=== PATIENT | female | born 1960 | race Asian ===

== ENCOUNTER 2021-02-01 14:24 | Outpatient (RCR) | payer BC, SELFPAY ==
[2021-02-01] MEDS: COVID-19 VACC, MRNA(PFIZER)/PF 30 MCG/0.3 ML SYRINGE IM (10:38)
[2021-02-22] MEDS: COVID-19 VACC, MRNA(PFIZER)/PF 30 MCG/0.3 ML SYRINGE IM (10:23)
== END 2021-02-07 23:59 ==
LOC: IMMUN 14:24
PROVIDERS: Referring Provider Family Medicine; Visit Provider Family Medicine
DX: Z23 Encounter for immunization (principal)
CPT/HCPCS: 0001A; 0002A; 91300

== ENCOUNTER → 2024-10-25 | Outpatient (CLI) | payer BC, SELFPAY ==
[2024-10-25 18:03] LABS: Hepatitis B Surface Antibody Non-Reactive; Hepatitis C Antibody Non-Reactive (Nonreactive)
[2024-10-27 06:08] LABS: Hepatitis A AB, Total Positive (Negative); Hepatitis Be Ab Reactive (Negative); Hepatitis Be Ag Negative (Negative)
== END | disposition home or self-care (01) ==
PROVIDERS: Referring Provider Nurse Practitioner Acute Care; Visit Provider Nurse Practitioner Acute Care
DX: B19.10 Unspecified viral hepatitis B without hepatic coma (principal)
CPT/HCPCS: 36415; 86706; 86707; 86708; 86803; 87350

== ENCOUNTER → 2024-11-18 | Outpatient (CLI) | payer BC, SELFPAY ==
--- NOTE | 2024-11-18 09:12 | US_ITS ---
INDICATION: HBV EXAMINATION: Ultrasound US Abdomen Limited (quadrant) TECHNIQUE: Madrigal scale and color doppler imaging was performed of the right upper quadrant. COMPARISON: FINDINGS: LIVER: There is normal echotexture measuring 15.5 cm. No focal hepatic lesion. There is no free fluid. GALLBLADDER AND BILIARY TREE: No shadowing gallstone, pericholecystic fluid or gallbladder wall thickening is demonstrated. The proximal common bile duct measures 5 mm, which is within normal limits for the patient''s age. Songraphic Mcclain''s sign: Negative. PANCREAS: No focal abnormality is demonstrated in the pancreas. No pancreatic ductal dilatation. RIGHT KIDNEY: 9.4 x 4.2 x 4.0 cm. The cortex is 11 mm. No hydronephrosis. No shadowing calculi. US/Abdomen Limited IMPRESSION: No acute sonographic abnormality is demonstrated in the right upper quadrant. Electronically Signed: Paddy Ramos DO at 21:22 EST ,
== END | disposition home or self-care (01) ==
LOC: US 09:11
PROVIDERS: Referring Provider Nurse Practitioner Acute Care; Visit Provider Nurse Practitioner Acute Care
DX: B19.10 Unspecified viral hepatitis B without hepatic coma (principal)
CPT/HCPCS: 76705

== ENCOUNTER 2025-01-23 07:03 | Day surgery (SDC) | payer BC, SELFPAY ==
[2025-01-23] VITALS (7 sets, daily range): BP systolic 73–123; BP diastolic 45–67; PULSE 59–73; RESP 16–18; TEMP 36.2–37.4; O2SAT 93–98; BMI 27.9
--- NOTE | 2025-01-23 07:08 | PCM.PRE.AN2 ---
ASA Classification* ASA Classification ASA Classification: 2 Assessment & Plan Anesthesia* Anesthesia Assessment Anesthesia Assessment: Discussed sedation and/or anesthesia options, risks, benefits, and alternatives with patient/parents/legal guardian/POA. Questions invited. The patient/parents/legal guardian/POA seems to understand and agrees to proceed with anesthesia plan. Reviewed the physical assessment, medical history, allergy history and patient home medications list prior to surgery/procedure/anesthetic and documented any changes. Performed airway and anesthesia risk assessments. Anesthesia Type Anesthesia Type: MAC Anesthesia Focused Assessment* Airway Assessment Mouth opens: >3 cm Mallampati Score: II Focused Labs Anesthesia Preop lab: CBC WBC 7.5 k/mm3 (4.4-11.0) 07/30/13 08:09 07/30/13 RBC 4.41 M/mm3 (4.2-5.4) 07/30/13 08:09 07/30/13 Hgb 10.9 g/dl (12.0-15.0) L 07/30/13 08:09 07/30/13 Hct 34.1 % (37-47) L 07/30/13 08:09 07/30/13 Plt Count 300 K/mm3 (150-450) 07/30/13 08:09 07/30/13 CHEMISTRY Potassium 4.0 mmol/L (3.5-5.1) 07/30/13 08:09 07/30/13 Sodium 143 mmol/L (136-145) 07/30/13 08:09 07/30/13 BUN 14 mg/dL (7-18) 07/30/13 08:09 07/30/13 Creatinine 1.0 mg/dL (0.6-1.0) 07/30/13 08:09 07/30/13 Glucose 91 mg/dL (70-110) 07/30/13 08:09 07/30/13 COAG Pre-Assessment Diagnosis/Proposed Procedure Planned Operative Procedure(s): cscope Anesthesia History 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 When Was Last Pacemaker Check QUESTION #4 FULL TEXT: You/Your Family Experience fever (hyperthermia) with Anesthesia Last Oral Intake Last Oral intake: Last Oral Intake NPO since Meds taken in AM with sips of water? Meds patient instructed to take am of surgery PONV PONV - deputy building guard: PONV - deputy building guard Female Yes 01/19/25 14:11 HX of Motion Sickness No 01/19/25 14:11 HX of N/V After Surgery No 01/19/25 14:11 Non-Smoker Yes 01/19/25 14:11 Duration of Surgery greater No 01/19/25 14:11 than 60 minutes Number of Risk Factors 2 01/19/25 14:11 PONV Score Moderate Risk 01/19/25 14:11 Height & Weight Height & Weight: Anesthesia: Height & Weight Height 5 ft 1 in 10/25/24 15:13 Respiratory Assessment Respiratory Assessment - deputy building guard: Respiratory Tract Infection Hx - deputy building guard Hx Respiratory Tract Infection No 01/19/25 14:11 STOP Sleep Apnea STOP Sleep Apnea - deputy building guard: STOP Sleep Apnea - deputy building guard Hx Hypertension Yes: controlled with med 01/19/25 14:11 Hx Sleep Apnea No: in the past, no longer 01/19/25 14:[address] CPAP BIPAP Do you snore loudly (louder No 01/19/25 14:11 than talking or can be heard Do you often feel tired/ No 01/19/25 14:11 fatigued/ sleepy during daytime? Has anyone observed you stop No 01/19/25 14:11 breathing during sleep? STOP Results Negative 01/19/25 14:11 QUESTION #5 FULL TEXT : Do you snore loudly (louder than talking or can be heard through closed doors)? 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 Specify any problems Hx of Preganancy in last 3 N/A 01/19/25 14:11 Months Nurse Filling Out Transfusion NBUCHER 01/19/25 14:11 & Questions: Date: 01/19/25 01/19/25 14:11 Time: 14:12 01/19/25 14:11 Patient unable to answer at this time (ie. confused, unrespo /Reproduction History /Reproductive History - deputy building guard: /Reproductive Hx- deputy building guard Hx Now No 01/19/25 14:11 Gestational Age (in weeks): EDC: Hx Hx Para Hx Section SAB No 01/19/25 14:11 [facility] Medical History Low iron High cholesterol Non-smoker History of edema History of stress test History of EMG Type B viral hepatitis Median neuropathy Hypokalemia Hypertension HLD (hyperlipidemia) Degenerative disc disease, cervical Home Medications ?Medication ?Instructions ?Recorded ?Last Taken ?Type amlodipine 10 mg tablet 10 mg PO QDAY 10/17/24 Unknown History losartan 50 mg tablet 50 mg PO QDAY 10/17/24 Unknown History cetirizine 10 mg tablet (Zyrtec) 10 mg PO QDAY PRN allergy symptoms 10/25/24 Unknown History multivitamin 1 tab PO QDAY 10/25/24 Unknown History bisacodyl 5 mg tablet,delayed 5 mg PO ONCE Colonoscopy #4 tabs 01/20/25 Unknown Rx release (Dulcolax (bisacodyl)) polyethylene glycol 3350 17 238 g PO ONCE #238 grams 01/20/25 Unknown Rx gram/dose oral powder Allergy/AdvReac Type Severity Reaction Status Date / Time No Known Allergies Allergy Verified 01/19/25 14:10 Family History Brother Hepatitis Mother Hypertension Father Hypertension Surgical History History of colonoscopy History of Social History Smoking Status: Never smoker alcohol intake: never substance use type: does not use caffeine: Yes Type: coffee Review of Systems (Anesthesia) ROS Narrative System reviewed and no additional complaints, except as documented.
--- NOTE | 2025-01-23 07:40 | PCM.HP.STD ---
HPI - General General Date of Admission: 01/23/25 Date of Service: 01/23/25 Chief Complaint: Colon cancer screening HPI Narrative TIANNA CASH, is a 64 F who presents for screening colonoscopy. LABS HBVsAg positive 09/16/2024 HBV Core, IgM Ab non-reactive 09/16/2024 09/16/2024 PLT 296, HGB 11.5, albumin 3.5, AST and ALT WNL - reports she was treated for HBV 20 years ago at [facility] - Colonoscopy was about 12 years ago - denies any abdominal pain - denies any jaundice - denies any abdominal pain - denies any N/V - denies any weight loss - denies any HB - Brother with HBV - denies any heart or lung disease - denies any kidney disease Coding FOR[facility] Medical History Low iron High cholesterol Non-smoker History of edema History of stress test History of EMG Type B viral hepatitis Median neuropathy Hypokalemia Hypertension HLD (hyperlipidemia) Degenerative disc disease, cervical Home Medications ?Medication ?Instructions ?Recorded ?Last Taken ?Type amlodipine 10 mg tablet 10 mg PO QDAY 10/17/24 01/23/25 History losartan 50 mg tablet 50 mg PO QDAY 10/17/24 Unknown History cetirizine 10 mg tablet (Zyrtec) 10 mg PO QDAY PRN allergy symptoms 10/25/24 Unknown History multivitamin 1 tab PO QDAY 10/25/24 Unknown History bisacodyl 5 mg tablet,delayed 5 mg PO ONCE Colonoscopy #4 tabs 01/20/25 Unknown Rx release (Dulcolax (bisacodyl)) polyethylene glycol 3350 17 238 g PO ONCE #238 grams 01/20/25 Unknown Rx gram/dose oral powder Allergy/AdvReac Type Severity Reaction Status Date / Time No Known Allergies Allergy Verified 01/23/25 07:17 Family History Brother Hepatitis Mother Hypertension Father Hypertension Surgical History History of colonoscopy History of Social History Smoking Status: Never smoker alcohol intake: never substance use type: does not use caffeine: Yes Type: coffee ROS Constitutional Constitutional: Denies fatigue, fever(s), poor appetite, weight gain or weight loss Gastrointestinal Gastrointestinal: Denies belching, bloating, change in bowel habits, change in stool character, chewing difficulty, coffee ground emesis, constipation, cramping, diarrhea, dyspepsia, dysphagia, early satiety, excessive flatus, fecal incontinence, heartburn, hematemesis, hematochezia, hemorrhoids, loose stools, melena, nausea, odynophagia, rectal bleeding, tenesmus, vomiting or weight changes Vital Signs Vital Signs Vital Signs: 01/23/25 07:18 Temperature 97.2 F L Temperature Source Temporal Pulse Rate 73 Respiratory Rate 16 Blood Pressure 123/67 H Blood Pressure Mean 85 Blood Pressure Source Monitor Blood Pressure Position Semi-Fowlers Blood Pressure Location Left Arm Pulse Ox 93 Oxygen Delivery Method Room Air Weight Weight: 148 lb Body Mass Index (BMI) 27.9 Physical Exam Const alert, oriented x3, no apparent distress and healthy appearing General Appearance: cooperative GI normal to inspection, nondistended, normoactive bowel sounds, soft to palpation, non-tender and non-distended Percussion: normal to percussion Rectal Exam: deferred Assessment & Plan Assessment/Plan (1) Screening for colon cancer: (2) Type B viral hepatitis: QUALIFIERS: Viral hepatitis chronicity: chronic Hepatic coma status: without hepatic coma PLAN: Assessment and Plan Assessment and Plan (1) Type B viral hepatitis: Status: Acute Qualifiers: Viral hepatitis chronicity: chronic Hepatic coma status: without hepatic coma (2) Screening for colon cancer: Status: Acute Orders: Orders Abdomen Limited Today B19.10 - Unspecified viral hepatitis B without hepatic coma Hepatitis B Surface Antibody Today B19.10 - Unspecified viral hepatitis B without hepatic coma Hepatitis Be Ab Today B19.10 - Unspecified viral hepatitis B without hepatic coma Hepatitis Be Ag Today B19.10 - Unspecified viral hepatitis B without hepatic coma Hepatitis A AB, Total Today B19.10 - Unspecified viral hepatitis B without hepatic coma Hepatitis C Antibody Today B19.10 - Unspecified viral hepatitis B without hepatic coma Miscellaneous Lab Procedure Today B19.10 - Unspecified viral hepatitis B without hepatic coma Plan 64y/o female presents for consultation with [facility] of HBV. Recent labs revealed HBVsAg positive, negative HBV Core, IgM with a low positive sAb (16). She reports a remote history of HBV treatment at [facility]. I have ordered additional labs to further assess presence of HBV infection. She will also complete an ABD US at this time as well as age related screening colonoscopy. Plan Details Follow Up: 3 Months
--- NOTE | 2025-01-23 08:48 | PCM.POST.ANE ---
Anesthesia: Postop Eval I Current Vital Signs Temperature: 98.1 F Pulse Rate: 64 Blood Pressure: 87/57 Respiratory Rate: 18 Pulse Ox: 95 Assessment Airway patent: Yes Spontaneous unlabored respirations: Yes nausea: No Vomiting: No Anesthesia Complication: No Fluid Hydration Crystalloid volume administer (ml): 0 Total IV fluid infused: 0 Progress Note Anesthesia document: Postop Eval 1 completed: Yes
--- NOTE | 2025-01-23 08:50 | OP.COLON_ITS ---
Patient Name: Jessika Pappas Procedure Date: 01/23/2025 8:30 AM Date of : 1960 Age: 64 Procedure: Colonoscopy Indications: Screening for colorectal malignant neoplasm Providers: Cachorro Courtney DO Referring MD: Cachorro Courtney DO Medicines: Monitored Anesthesia Care Patient Profile: This is a 64 year old female. Refer to note in patient chart for documentation of history and physical. Last Colonoscopy: more than 10 years ago. Complications: No immediate complications. Procedure: Pre-Anesthesia Assessment: - Prior to the procedure, a History and Physical was performed, and patient medications and allergies were reviewed. The patient is competent. The risks and benefits of the procedure and the sedation options and risks were discussed with the patient. All questions were answered and informed consent was obtained. Patient identification and proposed procedure were verified by the physician in the pre-procedure area. Mental Status Examination: alert and oriented. Airway Examination: normal oropharyngeal airway and neck mobility. Respiratory Examination: clear to auscultation. CV Examination: normal. Prophylactic Antibiotics: The patient does not require prophylactic antibiotics. Prior Anticoagulants: The patient has taken no anticoagulant or antiplatelet agents. ASA Grade Assessment: II - A patient with mild systemic disease. After reviewing the risks and benefits, the patient was deemed in satisfactory condition to undergo the procedure. The anesthesia plan was to use monitored anesthesia care (MAC). Immediately prior to administration of medications, the patient was re-assessed for adequacy to receive sedatives. The heart rate, respiratory rate, oxygen saturations, blood pressure, adequacy of pulmonary ventilation, and response to care were monitored throughout the procedure. The physical status of the patient was re-assessed after the procedure. After I obtained informed consent, the scope was passed under direct vision. Throughout the procedure, the patient's blood pressure, pulse, and oxygen saturations were monitored continuously. The Colonoscope was introduced through the anus and advanced to the cecum, identified by appendiceal orifice and ileocecal valve. The colonoscopy was performed without difficulty. The patient tolerated the procedure well. The quality of the bowel preparation was fair. The ileocecal valve was photographed. Scope In: 8:34:08 AM Scope Withdrawal Time 0 hours 6 minutes 21 seconds Scope Out: 8:43:28 AM Total Procedure Duration Time 0 hours 9 minutes 20 seconds Findings: The perianal and digital rectal examinations were normal. Stool was found in the rectum, in the recto-sigmoid colon, in the sigmoid colon, in the descending colon, in the ascending colon and in the cecum. The exam was otherwise without abnormality on direct and retroflexion views. Non-bleeding internal hemorrhoids were found during retroflexion. The hemorrhoids were Grade I (internal hemorrhoids that do not prolapse). Impression: - Preparation of the colon was fair. - Stool in the rectum, in the recto-sigmoid colon, in the sigmoid colon, in the descending colon, in the ascending colon and in the cecum. - The examination was otherwise normal on direct and retroflexion views. - No specimens collected. Recommendation: - Discharge patient to home. - Resume previous diet. - Continue present medications. - Repeat colonoscopy in 6 months because the bowel preparation was suboptimal. Procedure Code(s): --- Professional --- G0121, Colorectal cancer screening; colonoscopy on individual not meeting criteria for high risk CPT copyright 2021 [employer]. All rights reserved. The codes documented in this report are preliminary and upon jukebox coin collector review may be revised to meet current compliance requirements. Cachorro Courtney DO 01/23/2025 8:49:55 AM This report has been signed electronically. Number of Addenda: 0 Note Initiated On: 01/23/2025 8:30 AM
--- NOTE | 2025-01-23 08:50 | OP.CCLET_ITS ---
01/23/2025 Yin Perez Re : Colonoscopy procedure for Jessika Pappas Dear Chris This procedure was performed on Thursday, January 23, 2025. My impressions and recommendations are as follows: Impressions : - Preparation of the colon was fair. - Stool in the rectum, in the recto-sigmoid colon, in the sigmoid colon, in the descending colon, in the ascending colon and in the cecum. - The examination was otherwise normal on direct and retroflexion views. - No specimens collected. Recommendations : - Discharge patient to home. - Resume previous diet. - Continue present medications. - Repeat colonoscopy in 6 months because the bowel preparation was suboptimal. My findings are described in the full procedure note, which is enclosed. If I can be of further assistance, please feel free to contact me at . Sincerely, Cachorro Courtney, 01/23/2025 8:49:55 AM This report has been signed electronically.
--- NOTE | 2025-01-23 09:07 | POSTOPAN2_ITS ---
Anesthesia Postop Eval I Sum Postop Eval Completion status Anesthesia document: Postop Eval 1 completed: Yes Anesthesia Postop Eval I Summary Anesthesia Postop Eval I Summary: Anesthesia Postop Eval I: Assessment Summary Airway patent Yes 01/23/25 08:48 COMMISSIONING SPECIALIST.CSIR Spontaneous unlabored Yes 01/23/25 08:48 COMMISSIONING SPECIALIST.CSIR respirations Mental status nausea No 01/23/25 08:48 COMMISSIONING SPECIALIST.CSIR Vomiting No 01/23/25 08:48 COMMISSIONING SPECIALIST.CSIR Anesthesia Postop Eval I: Fluid Summary Crystalloid volume administer 0 01/23/25 08:48 COMMISSIONING SPECIALIST.CSIR (ml) Colloids volume administered ( ml) Blood Product volume administered (ml) Total IV fluid infused 0 01/23/25 08:48 COMMISSIONING SPECIALIST.CSIR Anesthesia Postop Eval I: Summary Notes Anesthesia Complication No 01/23/25 08:48 COMMISSIONING SPECIALIST.CSIR Anesthesia Complication Comment: Post-operative progress note Anesthesia: Postop Eval II Evaluation Mental status: Awake Pain Level: 0 nausea: No Vomiting: No
--- NOTE | 2025-01-23 09:07 | PCM.POSTANE2 ---
Anesthesia Postop Eval I Sum Postop Eval Completion status Anesthesia document: Postop Eval 1 completed: Yes Anesthesia Postop Eval I Summary Anesthesia Postop Eval I Summary: Anesthesia Postop Eval I: Assessment Summary Airway patent Yes 01/23/25 08:48 PROJECT MANAGEMENT SPECIALIST.CSIR Spontaneous unlabored Yes 01/23/25 08:48 PROJECT MANAGEMENT SPECIALIST.CSIR respirations Mental status nausea No 01/23/25 08:48 PROJECT MANAGEMENT SPECIALIST.CSIR Vomiting No 01/23/25 08:48 PROJECT MANAGEMENT SPECIALIST.CSIR Anesthesia Postop Eval I: Fluid Summary Crystalloid volume administer 0 01/23/25 08:48 PROJECT MANAGEMENT SPECIALIST.CSIR (ml) Colloids volume administered ( ml) Blood Product volume administered (ml) Total IV fluid infused 0 01/23/25 08:48 PROJECT MANAGEMENT SPECIALIST.CSIR Anesthesia Postop Eval I: Summary Notes Anesthesia Complication No 01/23/25 08:48 PROJECT MANAGEMENT SPECIALIST.CSIR Anesthesia Complication Comment: Post-operative progress note Anesthesia: Postop Eval II Evaluation Mental status: Awake Pain Level: 0 nausea: No Vomiting: No
== END 2025-01-23 09:37 | disposition home or self-care (01) ==
LOC: EN 07:04 → AC 07:05
PROVIDERS: Visit Provider Internal Medicine Gastroenterology
PROC: 0DJD8ZZ Inspection of Lower Intestinal Tract, Via Natural or Artificial Opening Endoscopic (ICD-10-PCS; CPT 45378; principal; 2025-01-23 08:10)
DX: Z12.11 Encounter for screening for malignant neoplasm of colon (principal); K64.0 First degree hemorrhoids; I10 Essential (primary) hypertension; E78.00 Pure hypercholesterolemia, unspecified; Z79.899 Other long term (current) drug therapy
CPT/HCPCS: 45378; A4216; J2405

== ENCOUNTER 2025-06-14 06:26 | Day surgery (SDC) | payer BC, SELFPAY ==
[2025-06-14] VITALS (8 sets, daily range): BP systolic 74–134; BP diastolic 49–69; PULSE 50–59; RESP 16; TEMP 36.3–36.6; O2SAT 97–100; BMI 26.6
--- OUTSIDE RECORDS SUMMARY | 2025-06-14 06:29 | XMS RPT_ITS | CCD ---
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 ####[place] [id number] Platelet 273 10 3/mcL Normal 150-450 [facility] Comment on above: Performed By: #### A DANAE, GFR, LIPID, TSH, ADIFF, CBC, A1C, CMP ####[place] [id number] Platelet mean volume (Bld) [Entitic vol] 9.3 fL Normal 6.6-10.5 [facility] Comment on above: Performed By: #### A DANAE, GFR, LIPID, TSH, ADIFF, CBC, A1C, CMP ####[place] [id number] RBC 4.66 10 6/mcL Normal 4.10-5.30 [facility] Comment on above: Performed By: #### A DANAE, GFR, LIPID, TSH, ADIFF, CBC, A1C, CMP ####[place] [address] [place] [id number] WBC 8.6 10 3/mcL Normal 4.5-10.8 [facility] Comment on above: Performed By: #### A DANAE, GFR, LIPID, TSH, ADIFF, CBC, A1C, CMP ####[place] [address] [id number] CMPon 03-17-2025 Albumin Level 3.6 G/dL Normal 3.4-4.8 [facility] Comment on above: Performed By: #### A DANAE, GFR, LIPID, TSH, ADIFF, CBC, A1C, CMP ####[place] [address] Albumin/Globulin [Mass ratio] 0.7 {ratio} Low 1.1-2.5 [facility] Comment on above: Performed By: #### A DANAE, GFR, LIPID, TSH, ADIFF, CBC, A1C, CMP ####[place] [address] ALP [Catalytic activity/Vol] 97 U/L Normal 40-135 [facility] Comment on above: Performed By: #### A DANAE, GFR, LIPID, TSH, ADIFF, CBC, A1C, CMP ####[place] [address] ALT [Catalytic activity/Vol] 25 U/L Normal 14-59 [facility] Comment on above: Performed By: #### A DANAE, GFR, LIPID, TSH, ADIFF, CBC, A1C, CMP ####[place] [address] AST [Catalytic activity/Vol] 13 U/L Normal 10-40 [facility] Comment on above: Performed By: #### A DANAE, GFR, LIPID, TSH, ADIFF, CBC, A1C, CMP ####[place] [address] Bili Total 0.7 mg/dL Normal 0.2-1.0 [facility] Comment on above: Result Comment: Use of this assay is not recommended for patients undergoing treatment with eltrombopag due to the potential for falsely elevated results. Performed By: #### A DANAE, GFR, LIPID, TSH, ADIFF, CBC, A1C, CMP ####[place] [address] BUN/Creatinine Ratio 21 ratio Normal 7-27 [facility] Comment on above: Performed By: #### A DANAE, GFR, LIPID, TSH, ADIFF, CBC, A1C, CMP ####[address] [address] Calcium [Mass/Vol] 9.5 mg/dL Normal 8.4-10.2 [facility] Comment on above: Performed By: #### A DANAE, GFR, LIPID, TSH, ADIFF, CBC, A1C, CMP ####[place] [address] Chloride [Moles/Vol] 107 mmol/L Normal 98-107 [facility] Comment on above: Performed By: #### A DANAE, GFR, LIPID, TSH, ADIFF, CBC, A1C, CMP ####[place] [address] CO2 [Moles/Vol] 30 mmol/L Normal 23-31 [facility] Comment on above: Performed By: #### A DANAE, GFR, LIPID, TSH, ADIFF, CBC, A1C, CMP ####[place] [address] Creatinine [Mass/Vol] 0.71 mg/dL Normal 0.51-0.95 [facility] Comment on above: Performed By: #### A DANAE, GFR, LIPID, TSH, ADIFF, CBC, A1C, CMP ####[place] [address] Electrolyte Balance 6.0 mEq/L Normal 4.0-15.0 [facility] Comment on above: Performed By: #### A DANAE, GFR, LIPID, TSH, ADIFF, CBC, A1C, CMP ####[place] [address] Globulin 5.0 G/dL High 2.7-4.4 [facility] Comment on above: Performed By: #### A DANAE, GFR, LIPID, TSH, ADIFF, CBC, A1C, CMP ####[place] [address] Glucose [Mass/Vol] 113 mg/dL Normal 80-115 [facility] Comment on above: Performed By: #### A DANAE, GFR, LIPID, TSH, ADIFF, CBC, A1C, CMP ####[address] [place], [place] [address] Potassium [Moles/Vol] 3.8 mmol/L Normal 3.5-5.1 [facility] Comment on above: Performed By: #### A DANAE, GFR, LIPID, TSH, ADIFF, CBC, A1C, CMP ####[place] [place], [place] [address] Sodium [Moles/Vol] 143 mmol/L Normal 136-145 [facility] Comment on above: Performed By: #### A DANAE, GFR, LIPID, TSH, ADIFF, CBC, A1C, CMP ####[address] [place], [place] [address] Total Protein 8.6 G/dL High 6.4-8.2 [facility] Comment on above: Performed By: #### A DANAE, GFR, LIPID, TSH, ADIFF, CBC, A1C, CMP ####[place] [place], [place] [address] Urea nitrogen [Mass/Vol] 15 mg/dL Normal 7-18 [facility] Comment on above: Performed By: #### A DANAE, GFR, LIPID, TSH, ADIFF, CBC, A1C, CMP ####[place] [id number] [place], [place] [address] LABORATORYOrdered By: SYSTEM SYSTEM on 03-17-2025 Albumin BCP dye [Mass/Vol] 3.6 G/dL Normal 3.4 - 4.8 G/dL AO ADM SS Albumin/Globulin [Mass ratio] 0.7 {ratio} Low 1.1 - 2.5 ratio AO ADM SS ALP [Catalytic activity/Vol] 97 U/L Normal 40 - 135 U/L AO ADM SS ALT With P-5'-P [Catalytic activity/Vol] 25 U/L Normal 14 - 59 U/L AO ADM SS AST With P-5'-P [Catalytic activity/Vol] 13 U/L Normal 10 - 40 U/L AO ADM SS Basophils (Bld) [#/Vol] 0.1 103/mcL Normal 0.0 - 0.3 10^3/mcL AO Workflow SS Basophils/100 WBC (Bld) 0.9 % Normal 0.0 - 2.5 % AO Workflow SS Bilirubin [Mass/Vol] 0.7 mg/dL Normal 0.2 - 1 .0 mg/dL AO ADM SS Comment on above: Interpretive Data: U se of this assay is not recommended for patients undergoing treatment with eltrombopag due to the potential for falsely elevated results. Calcium [Mass/Vol] 9.5 mg/dL Normal 8.4 - 10. 2 mg/dL AO ADM SS Chloride [Moles/Vol] 107 mmol/L Normal 98 - 10 7 mmol/L AO ADM SS CO2 [Moles/Vol] 30 mmol/L Normal 23 - 31 mmol/L AO AD M SS Creatinine [Mass/Vol] 0.71 mg/dL Normal 0.51 - 0.95 mg/dL AO ADM SS Electrolyte Balance 6.0 mEq/L Normal 4.0 - 15 .0 mEq/L AO ADM SS Eosinophil, Absolute 0.3 103/mcL Normal 0.0 - 0 .7 10^3/mcL AO Workflow SS Eosinophils/100 WBC (Bld) 3.3 % Normal 0.0 - 6.0 % AO Workflow SS Erythrocyte distribution width (RBC) [Ratio] 14.1 % Normal 11.5 - 15.5 % AO Workflow SS Estimated Glomerular Filtration Rate 94 ml/min/1.73sqm Invalid Interpretation Code AO Chemistry S Comment on above: Interpretive Data: Stages of Chronic Kidney Disease (CKD) Stage Description eGFR(ml/min/1.73 sq.m.) CKD 1 Normal kidney function or >=90 normal kindney function with possible kidney damage (ex. Proteinuria) CKD 2 Kidney damage with mild loss 60-89 of kidney function CKD 3a Mild to moderate loss of kidney 45-59 function CKD 3b Moderate to severe loss of 30-44 of kindey function CKD 4 Severe loss of kidney function 15-29 CKD 5 Kidney failure <15 Note: (go live 2024) the eGFR calculation was updated to the 2020 CKD-EPI creatinine equation without a race factor to calculate the eGFR results. Globulin 5.0 G/dL High 2.7 - 4.4 G/dL AO ADM SS Glucose [Mass/Vol] 113 mg/dL Normal 80 - 115 mg/dL AO ADM SS Glucose [Mass/Vol] 123 mg/dL Invalid Interpretation Code AO Chemistry S Comment on above: Interpretive Data: E stimated average glucose (eAG) is a calculated value from Hemoglobin A1C and is medical service representative of the average blood glucose level in the last 2-3 month period. Normal range: less than 114 mg/dL HbA1c (Bld) [Mass fraction] 5.9 % Normal 4.3 - 6.4 % AO ADM SS Hematocrit (Bld) [Volume fraction] 35.5 % Normal 34.0 - 46.0 % AO Workflow SS Hemoglobin (Bld) [Mass/Vol] 11.7 G/dL Low 12.0 - 16.0 G/dL AO Workflow SS Lymphocytes (Bld) [#/Vol] 2.9 103/mcL Normal 0.9 - 4.3 10^3/mcL AO Workflow SS Lymphocytes/100 WBC (Bld) 34.2 % Normal 20.0 - 40.0 % AO Workflow SS MCH (RBC) [Entitic mass] 25.2 pg Low 27.0 - 33.0 pg AO Workflow SS MCHC 33.1 G/dL Normal 32.0 - 36.0 G/dL AO Workflow SS MCV (RBC) [Entitic vol] 76.2 fL Low 80.0 - 99.0 fL AO Workflow SS Monocytes (Bld) [#/Vol] 1.0 103/mcL Normal 0.1 - 1.4 10^3/mcL AO Workflow SS Monocytes/100 WBC (Bld) 11.2 % Normal 2.0 - 13.0 % AO Workflow SS Neutrophils (Bld) [#/Vol] 4.3 103/mcL Normal 2.3 - 8.1 10^3/mcL AO Workflow SS Neutrophils/100 WBC (Bld) 50.4 % Normal 50.0 - 75.0 % AO Workflow SS Platelet mean volume (Bld) [Entitic vol] 9.3 fL Normal 6.6 - 10.5 fL AO Workflow SS Platelets (Bld) [#/Vol] 273 103/mcL Normal 150 - 450 10^3/mcL AO Workflow SS Potassium [Moles/Vol] 3.8 mmol/L Normal 3.5 - 5.1 mmol/L AO ADM SS Protein [Mass/Vol] 8.6 G/dL High 6.4 - 8.2 G/dL AO ADM SS RBC (Bld) [#/Vol] 4.66 106/mcL Normal 4.10 - 5.3 0 10^6/mcL AO Workflow SS Sodium [Moles/Vol] 143 mmol/L Normal 136 - 145 mmol/L AO ADM SS TSH Qn 0.68 m[IU]/L Normal 0.36 - 3.74 mcIU/mL AO ADM SS Urea nitrogen [Mass/Vol] 15 mg/dL Normal 7 - 18 mg/dL AO ADM SS Urea nitrogen/Creatinine [Mass ratio] 21 ratio Normal 7 - 27 ratio AO ADM SS WBC (Bld) [#/Vol] 8.6 103/mcL Normal 4.5 - 10.8 10^3/mcL AO Workflow SS LABORATORYOrdered By: Jag Sawyer on 03-17-2025 Cholesterol [Mass/Vol] 212 mg/dL High 0 - 200 mg/dL AO ADM SS Comment on above: Interpretive Data: C holesterol Reference Interval: Less than 200 Desirable 200-239 Borderline high risk 240 and above High risk Cholesterol in HDL [Mass/Vol] 48 mg/dL Normal 40 - 60 mg/dL AO ADM SS Cholesterol in LDL [Mass/Vol] 128 mg/dL Normal 0 - 130 mg/dL AO ADM SS Triglyceride [Mass/Vol] 180 mg/dL High 0 - 150 mg/dL AO ADM SS Comment on above: Interpretive Data: T riglyceride Reference Interval: Less than 150 Normal 150-199 Borderline high risk 200-499 High risk 500 or higher Very high risk LIPIDon 03-17-2025 Cholesterol [Mass/Vol] 212 mg/dL High 0-200 [facility] Comment on above: Result Comment: Chol esterol Reference Interval: Less than 200 Desirable 200-239 Borderline high risk 240 and above High risk Performed By: #### H PV #### [address] [address] Cholesterol in HDL [Mass/Vol] 48 mg/dL Normal 40-60 [facility] Comment on above: Performed By: #### H PV #### [address] [address] Cholesterol in LDL [Mass/Vol] 128 mg/dL Normal 0-130 [facility] Comment on above: Performed By: #### H PV #### [address] [address] Triglyceride [Mass/Vol] 180 mg/dL High 0-150 [facility] Comment on above: Result Comment: Trig lyceride Reference Interval: Less than 150 Normal 150-199 Borderline high risk 200-499 High risk 500 or higher Very high risk Performed By: #### H PV #### [facility] [address] [place], [place] [address] TSHon 03-17-2025 TSH Qn 0.68 m[IU]/L Normal 0.36-3.74 [facility] Comment on above: Performed By: #### A DANAE, GFR, LIPID, TSH, ADIFF, CBC, A1C, CMP ####[facility] [place] [facility] [place], [place] [address] Gastroenterology Visit Repor ton 01-26-2025 Gastroenterology Visit Report [facility]enter[facility] [address] [place] [address] OFFICE VISIT Date of Service: 01/26/25 MR#: [id number] Acct: [id number] Name: JESSIKA PAPPAS Rep #: [id number] : 1960 Provider: CHAD pimentel Age/Sex: 64/F Location: [facility] Status: Signed Intake Vital Signs 10/25/24 15:13 01/23/25 07:18 01/26/25 15:35 Height 5 ft 1 in 5 ft 1 in 5 ft 1 in Weight: 148 lb 6 oz BMI 28.0 BP 138/72 H Respiration 16 Pulse 75 Pulse Oximetry (%) 98 Oxygen Delivery Method room air Intake Visit Reasons: 3 M FU Chief Complaint: a little hepatitis B Flight Line Mechanic Required: No Is patient in pain?: No Allergies No Known Allergies Allergy (Verified 01/26/25 15:36) Medications ???Medication ???Instructions ???Recorded ???Confirmed ???Type amlodipine 10 mg tablet 10 mg PO QDAY 10/17/24 01/26/25 Hi story losartan 50 mg tablet 50 mg PO QDAY 10/17/24 01/26/25 Hi story cetirizine 10 mg tablet (Zyrtec) 10 mg PO QDAY PRN allergy symptoms 10/25/24 01/26/25 History multivitamin 1 tab PO QDAY 10/25/24 01/26/25 Hi story ondansetron 4 mg disintegrating 4 mg PO .COMPLEX #8 tabs 01/26/25 01/26/25 Rx tablet sodium sul 1.479 gram-potas ch See Rx Instructions PO PER PKG DIR 01/26/25 01/26/25 Rx 0.188 gram-magnes sul 0.225 gram #24 tabs tablet (Sutab) Have you fallen in the past year?: No PFSH Medical History Low iron High cholesterol Non-smoker History of edema History of stress test History of EMG Type B viral hepatitis Median neuropathy Hypokalemia Hypertension HLD (hyperlipidemia) Degenerative disc disease, cervical Surgical History History of colonoscopy History of Family History Brother Hepatitis Mother Hypertension Father Hypertension Social History Smoking Status: Never smoker alcohol intake: never substance use type: does not use caffeine: Yes Type: coffee HPI HPI Chief Complaint: a little hepatitis B Details: JESSIKA PAPPAS, is a 64 F who presents to the office today for OV 10/25/2024 64y/o female presents for consultation with PMH of HBV. Recent labs revealed HBVsAg positive, negative HBV Core, IgM with a low positive sAb (16). She reports a remote history of HBV treatment at [facility]. I have ordered additional labs to further assess presence of HBV infection. She will also complete an ABD US at this time as well as age related screening colonoscopy. Plan Details Follow Up: 3 Months - Preparation of the colon was fair. - - Repeat colonoscopy in 6 months because the bowel preparation was suboptimal. - Stool in the rectum, in the recto-sigmoid colon, in the sigmoid colon, in the descending colon, in the ascending colon and in the cecum. - The examination was otherwise normal on direct and retroflexion views. - No specimens collected. HBVsAg positive HBVsAb negative HBVeAb positive HBVeAg negative HBV Core IgM negative HBV PCR Quant 470 HCVAb negative HAV Total positive These labs reveal she was previously infected with Hepatitis B and she has not seroconverted (HBVsAb negative), meaning she has not developed antibodies to Hepatitis B. However, her HBV DNA viral load remains very low and per AASLD guidelines any patient with HBeAg-negative CHB with normal ALT and low viral load should have routine labs yearly and ABD US to monitor. Labs also reveal immunity to hepatitis A. Avoidance of all alcohol is recommended. - occasional use of Advil - she has a BM daily - denies any pain or discomfort - denies any bleeding - denies any N/V - reports she was able to drink all of the prep and did not vomit ROS Const Constitutional: No fatigue, fever(s) or weight change ENT ENT: No difficulty swallowing Gastro GI: No abdominal pain, belching, bloating, change in bowel habits, change in stool character, coffee ground emesis, constipation, cramping, diarrhea, heartburn, difficulty swallowing, feeling full early, excessive flatus, incontinent of stools, Vomiting blood/hematemesis, Blood in stool, loose stools, Black,tarry stools, nausea/dyspepsia, pain with swallowing, vomiting or other Musc Musculoskeletal: No joint pain Skin Skin: No yellowing of the eye or itchy eyes Psych Psychiatric: No anxiety and No depression Endo Endocrine: No fatigue or weight change Aller/Imm Allergy/Immunologic: No itchy eyes Bradley/Lymp Hematologic/Lymphatic: No easy bleeding or easy bruising Exam Const General: cooperative, healthy appearing, no acute distress and well developed (more content not included)... Normal [facility] Colonoscopy Reporton 025 Colonoscopy Report [facility] Medical Records Department [address] [place] [address] Colonoscopy Report MR#: [id number] Acct: [id number] Name: JESSIKA PAPPAS Rep #: [id number] : 1960 64 From: Cachorro Friend DO PCP: Dr. Erica Hernandez, DO Status:REG [facility] Patient Name: Jessika Pappas Procedure Date: 01/23/2025 8:30 AM Date of : 1960 Age: 64 Procedure: Colonoscopy Indications: Screening for colorectal malignant neoplasm Providers: Cachorro Courtney DO Referring MD: Cachorro Courtney DO Medicines: Monitored Anesthesia Care Patient Profile: This is a 64 year old female. Refer to note in patient chart for documentation of history and physical. Last Colonoscopy: more than 10 years ago. Complications: No immediate complications. Procedure: Pre-Anesthesia Assessment: - Prior to the procedure, a History and Physical was performed, and patient medications and allergies were reviewed. The patient is competent. The risks and benefits of the procedure and the sedation options and risks were discussed with the patient. All questions were answered and informed consent was obtained. Patient identification and proposed procedure were verified by the physician in the pre-procedure area. Mental Status Examination: alert and oriented. Airway Examination: normal oropharyngeal airway and neck mobility. Respiratory Examination: clear to auscultation. CV Examination: normal. Prophylactic Antibiotics: The patient does not require prophylactic antibiotics. Prior Anticoagulants: The patient has taken no anticoagulant or antiplatelet agents. ASA Grade Assessment: II - A patient with mild systemic disease. After reviewing the risks and benefits, the patient was deemed in satisfactory condition to undergo the procedure. The anesthesia plan was to use monitored anesthesia care (MAC). Immediately prior to administration of medications, the patient was re-assessed for adequacy to receive sedatives. The heart rate, respiratory rate, oxygen saturations, blood pressure, adequacy of pulmonary ventilation, and response to care were monitored throughout the procedure. The physical status of the patient was re-assessed after the procedure. After I obtained informed consent, the scope was passed under direct vision. Throughout the procedure, the patient's blood pressure, pulse, and oxygen saturations were monitored continuously. The Colonoscope was introduced through the anus and advanced to the cecum, identified by appendiceal orifice and ileocecal valve. The colonoscopy was performed without difficulty. The patient tolerated the procedure well. The quality of the bowel preparation was fair. The ileocecal valve was photographed. Scope In: 8:34:08 AM Scope Withdrawal Time 0 hours 6 minutes 21 seconds Scope Out: 8:43:28 AM Total Procedure Duration Time 0 hours 9 minutes 20 seconds Findings: The perianal and digital rectal examinations were normal. Stool was found in the rectum, in the recto-sigmoid colon, in the sigmoid colon, in the descending colon, in the ascending colon and in the cecum. The exam was otherwise without abnormality on direct and retroflexion views. Non-bleeding internal hemorrhoids were found during retroflexion. The hemorrhoids were Grade I (internal hemorrhoids that do not prolapse). Impression: - Preparation of the colon was fair. - Stool in the rectum, in the recto-sigmoid colon, in the sigmoid colon, in the descending colon, in the ascending colon and in the cecum. - The examination was otherwise normal on direct and retroflexion views. - No specimens collected. Recommendation: - Discharge patient to home. - Resume previous diet. - Continue present medications. - Repeat colonoscopy in 6 months because the bowel preparation was suboptimal. Procedure Code(s): --- Professional --- G0121, Colorectal cancer screening; colonoscopy on individual not meeting criteria for high risk CPT copyright 2021 [employer]. All rights reserved. The codes documented in this report are preliminary and upon pre coder review may be revised to meet current compliance requirements. Cachorro Courtney DO 01/23/2025 8:49:55 AM This report has been signed electronically. Number of Addenda: 0 Note Initiated On: 01/23/2025 8:30 AM 01/23/2550 Date Cachorro Courtney DO Cosigner Signature: Date (if indicated) CC: Dr. Erica Hernandez DO; Cachorro Courtney DO Date Dictated: 01/23/25829 Date Transcribed: Safety And Security Officer: ALE Signed [facility] MR/POSTOP.Brandi 01-23-2025 MR/POSTOP.[facility] Medical Records Department [address] [place] [address] Anesthesia Postop Eval I 01/23/2548 MR#: [id number] Acct: [id number] Name: SHAILESHTIFFANYJANAK Rep #: [id number] : 1960 64 From: Georgia Armenta PCP: Dr. Erica Hernandez, DO Status:REG SDC Y Race: A Location: [place] [address] Anesthesia: Postop Eval I Current Vital Signs Temperature: 98.1 F Pulse Rate: 64 Blood Pressure: 87/57 Respiratory Rate: 18 Pulse Ox: 95 Assessment Airway patent: Yes Spontaneous unlabored respirations: Yes nausea: No Vomiting: No Anesthesia Complication: No Fluid Hydration Crystalloid volume administer (ml): 0 Total IV fluid infused: 0 Progress Note Anesthesia document: Postop Eval 1 completed: Yes 01/23/25848 Date Georgia Phliippe Signature: Date CC: Signed Normal [facility] MR/[id number] 01-23-2025 [facility] Medical Records Department [address] [place] [address] Anesthesia Postop Eval II 01/23/25906 MR#: [id number] Acct: [id number] Name: JESSIKA PAPPAS Rep #: [id number] : 1960 64 From: Bharath Woods MD PCP: Dr. Erica Hernandez, DO Status:REG SDC Y Race: A Location: [place] [address] Anesthesia Postop Eval I Sum Postop Eval Completion status Anesthesia document: Postop Eval 1 completed: Yes Anesthesia Postop Eval I Summary Anesthesia Postop Eval I Summary: Anesthesia Postop Eval I: Assessment Summary Airway patent Yes 01/23/25 08:48 SOCIOLOGY TEACHER.CSIR Spontaneous unlabored Yes 01/23/25 08:48 SOCIOLOGY TEACHER.CSIR respirations Mental status nausea No 01/23/25 08:48 SOCIOLOGY TEACHER.CSIR Vomiting No 01/23/25 08:48 SOCIOLOGY TEACHER.CSIR Anesthesia Postop Eval I: Fluid Summary Crystalloid volume administer 0 01/23/25 08:48 SOCIOLOGY TEACHER.CSIR (ml) Colloids volume administered ( ml) Blood Product volume administered (ml) Total IV fluid infused 0 01/23/25 08:48 SOCIOLOGY TEACHER.CSIR Anesthesia Postop Eval I: Summary Notes Anesthesia Complication No 01/23/25 08:48 SOCIOLOGY TEACHER.CSIR Anesthesia Complication Comment: Post-operative progress note Anesthesia: Postop Eval II Evaluation Mental status: Awake Pain Level: 0 nausea: No Vomiting: No 01/23/25 0907 Date Bharath Philippe Signature: Date CC: Signed Normal [facility] Abdomen Limitedon 11-18-2024 Abdomen Limited [facility] Imaging Services [address] [place] [address] Abdomen Limited MR#: [id number] Acct: [id number] Name: JESSIKA PAPPAS Rep #: [id number] : 1960 F 64 From: Paddy Ramos DO PCP: Dr. Erica Hernandez DO Status: REG CLI Study: Abdomen Limited Date of Exam: 11/18/24 Exam# [id number] Ordering Dr: Erin Lernre FEED BLENDER- Susannah [id number] INDICATION: HBV EXAMINATION: Ultrasound US Abdomen Limited (quadrant) TECHNIQUE: Madrigal scale and color doppler imaging was performed of the right upper quadrant. COMPARISON: FINDINGS: LIVER: There is normal echotexture measuring 15.5 cm. No focal hepatic lesion. There is no free fluid. GALLBLADDER AND BILIARY TREE: No shadowing gallstone, pericholecystic fluid or gallbladder wall thickening is demonstrated. The proximal common bile duct measures 5 mm, which is within normal limits for the patient''s age. Songraphic Mcclain''s sign: Negative. PANCREAS: No focal abnormality is demonstrated in the pancreas. No pancreatic ductal dilatation. RIGHT KIDNEY: 9.4 x 4.2 x 4.0 cm. The cortex is 11 mm. No hydronephrosis. No shadowing calculi. US/Abdomen Limited IMPRESSION: No acute sonographic abnormality is demonstrated in the right upper quadrant. Electronically Signed: Paddy Ramos DO at 21:22 EST Reading Location ID and State: [facility] / [place] Tel [phone], Service support , CC: CHAD Lerner; Dr. Erica Hernandez DO Safety And Security Officer: [facility]igned [facility] LAB TEST Normal [facility] Comment on above: Order Comment: SER/F Z [id number] Hepatitis B Virus (HBV), Quantitative, DNA Real-time PCR Result Comment: TEST RESULTS LIMITS HBV Real-Time PCR, Quant HBV IU/mL 470 IU/mL log10 HBV IU/mL 2.672 log10 IU/mL Test Information: The reportable range for this assay is 10 IU/mL to 1 billion IU/mL. [facility] ORIGINAL REPORT ON FILE IN LAB CONTAINS ADDITIONAL TEST SITE INFORMATION. Performed By: #### L 3890.6200, L3100.0300, L3890.6300, L3100.0420, L801.1541, L3100.0480 #### [facility] Laboratory [address] [place], [place], [id number] Hepatitis A AB, Totalon 10-16 HEPATITIS A,TOT Positive Abnormal Negative [facility] Comment on above: Order Comment: Reaso n for Exam: HBV Result Comment: Comm ent: The HAV total antibody assay detects both IgG and IgM but does not differentiate between them. A negative result suggests susceptibility to infection. A positive result could be due to vaccination, previously resolved infection or active infection. Testing for HAV IgM should be performed if active HAV infection is suspected. [employer] offers profiles that will automatically reflex positive HAV total antibody results to IgM (e.g., panel #[id number] HAV Antibody w/ Rfx). Performed at: [facility] [address] [id number] Director Dermatology: Isaac Malagon PhD, Phone: [phone] Performed By: #### L 3890.6200, L3100.0300, L3890.6300, L3100.0420, L801.1541, L3100.0480 #### [facility] [place] Laboratory [address] [place], [place], [id number] Hepatitis Be Abon 10-27-2024 HEP Be Ab Reactive Abnormal Negative [facility] Comment on above: Order Comment: Reaso n for Exam: HBV Performed By: #### L 3890.6200, L3100.0300, L3890.6300, L3100.0420, L801.1541, L3100.0480 #### [facility] Laboratory [address] [place], [place], [id number] Hepatitis Be Agon 10-27-2024 HEP Be AG Negative Normal Negative [facility] Comment on above: Order Comment: Reaso n for Exam: HBV Performed By: #### L 3890.6200, L3100.0300, L3890.6300, L3100.0420, L801.1541, L3100.0480 #### [facility] Laboratory [address] [place], [place], [id number] HBV surface IgG Ql (S)Ordere d By: Erin Lerner on 10-25-2024 Hepatitis B Surface Antibody Non-Reactive [facility] Comment on above: Non Reactive: Incons istent with immunity less than <10 mIU/mL Reactive: Consistent with immunity greater than or equal to 10 mIU/mL Hepatitis A virus total anti body assayOrdered By: Erin Lerner on 10-25-2024 Hepatitis A Antibody Total Positive High Negative [facility] Comment on above: Comment: The HAV tot al antibody assay detects both IgG andIgM but does not differentiate between them. A negativeresult suggests susceptibility to infection. A positiveresult could be due to vaccination, previously resolvedinfection or active infection. Testing for HAV IgM shouldbe performed if active HAV infection is suspected. [facility] profiles that will automatically reflex positive HAVtotal antibody results to IgM (e.g., panel #[id number] HAVAntibody w/ Rfx).Performed at: [place] [id number] Director: Isaac Malagon PhD, Phone: [phone] Hepatitis B Surface Antibody on 10-25-2024 HEP B Surf Ab Non-Reactive Normal [facility] Comment on above: Order Comment: Reaso n for Exam: HBV Result Comment: Non Reactive: Inconsistent with immunity less than <10 mIU/mL Reactive: Consistent with immunity greater than or equal to 10 mIU/mL Performed By: #### L 3890.6200, L3100.0300, L3890.6300, L3100.0420, L801.1541, L3100.0480 #### [facility] Laboratory [facility] [place], [address] Hepatitis Be agOrdered By: Andrea Lerner on 10-25-2024 Hepatitis Be Antigen Negative Negative [facility] Hepatitis C Antibodyon 10-25 Hepatitis C AB Non-Reactive Normal Nonreactive [facility] Comment on above: Order Comment: Reaso n for Exam: HBV Result Comment: Non Reactive: < 0.8 Equivocal: >/= 0.8 to < 1.0 Reactive: >/= 1.0 The CDC requires that a reactive/equivocal HCV antibody result be sent out for confirmation. HCV Quant by PCR testing. Performed By: #### L 3890.6200, L3100.0300, L3890.6300, L3100.0420, L801.1541, L3100.0480 #### [facility] Laboratory [address] [place], [address] Hepatitis C virus antibody a ssayOrdered By: Erin Lerner on 10-25-2024 Hepatitis C Antibody Non-Reactive Nonreactive [facility] Comment on above: Non Reactive: < 0.8 Equivocal: >/= 0.8 to < 1.0 Reactive: >/= 1.0The CDC requires that a reactive/equivocal HCV antibody result be sent out for confirmation. HCV Quant by PCR testing. Hepatitis be abOrdered By: Andrea Lerner on 10-25-2024 Hepatitis Be Antibody Reactive High Negative [facility] Miscellaneous procedureOrder ed By: Erin Lerner on 10-25-2024 Miscellaneous Test See comment [facility] Comment on above: TEST RESULTS LIMITSH BV Real-Time PCR, Quant HBV IU/mL 470 IU/mL log10 HBV IU/mL 2.672 log10 IU/mL Test Information: The reportable range for this assay is 10 IU/mL to 1 billion IU/mL. TESTING PERFORMED AT [facility]. ORIGINAL REPORT ON FILE IN LAB CONTAINS ADDITIONAL TEST SITE INFORMATION. ____ Gastroenterology Visit Repor ton 10-19-2024 Gastroenterology Visit Report [facility] [address] [place] [address] OFFICE VISIT Date of Service: 10/25/24 MR#: [id number] Acct: [id number] Name: JESSIKA PAPPAS #: [id number] : 1960 Provider: CHAD pimentel Age/Sex: 64/F Location: [facility] Status: Signed Intake Vital Signs 10/25/24 15:13 Height 5 ft 1 in Weight: 149 lb 6 oz BMI 28.2 BP 143/82 H Respiration 18 Pulse 78 Pulse Oximetry (%) 96 Oxygen Delivery Method room air Intake Visit Reasons: POSSIBLE HEP B SEROLOGY Chief Complaint: a little hepatitis B Flight Line Mechanic Required: No Is patient in pain?: No Allergies No Known Allergies Allergy (Unverified 10/25/24 15:10) Medications ???Medication ???Instructions ???Recorded ???Confirmed ???Type amlodipine 10 mg tablet 10 mg PO QDAY 10/17/24 10/17/24 History losartan 50 mg tablet 50 mg PO QDAY 10/17/24 10/17/24 History cetirizine 10 mg tablet (Zyrtec) 10 mg PO QDAY PRN 10/25/24 10/25/24 History multivitamin 1 tab PO QDAY 10/25/24 10/25/24 History Have you fallen in the past year?: No Nurse's Note: Follow up on Hepatitis. [facility] Medical History (Updated 10/25/24 @ 16:02 by CHAD Reyes) History of EMG Type B viral hepatitis Median neuropathy Hypokalemia Hypertension HLD (hyperlipidemia) Degenerative disc disease, cervical Family History (Updated 10/17/24 @ 19:06 by Sheila Marquez) Brother Hepatitis Mother Hypertension Father Hypertension Social History (Updated 10/17/24 @ 19:07 by Sheila Marquez) Smoking Status: Never smoker alcohol intake: never substance use type: does not use caffeine: Yes Type: coffee HPI HPI Chief Complaint: a little hepatitis B Details: JESSIKA PAPPAS, is a 64 F who presents to the office today for LABS HBVsAg positive 09/16/2024 HBV Core, IgM Ab non-reactive 09/16/2024 09/16/2024 PLT 296, HGB 11.5, albumin 3.5, AST and ALT WNL - reports she was treated for HBV 20 years ago at [facility] - Colonoscopy was about 12 years ago - denies any abdominal pain - denies any jaundice - denies any abdominal pain - denies any N/V - denies any weight loss - denies any HB - Brother with HBV - denies any heart or lung disease - denies any kidney disease ROS Const Constitutional: Positive for fatigue and headache(s); No fever(s) or weight change ENT ENT: Positive for headache(s); No difficulty swallowing Gastro GI: No abdominal pain, belching, bloating, change in bowel habits, change in stool character, coffee ground emesis, constipation, cramping, diarrhea, heartburn, difficulty swallowing, feeling full early, excessive flatus, incontinent of stools, Vomiting blood/hematemesis, Blood in stool, loose stools, Black,tarry stools, nausea/dyspepsia, pain with swallowing, vomiting or other Musc Musculoskeletal: No joint pain Skin Skin: No yellowing of the eye or itchy eyes Neuro Neurology: Positive for headache(s) Psych Psychiatric: No anxiety and No depression Endo Endocrine: Positive for fatigue; No weight change Aller/Imm Allergy/Immunologic: No itchy eyes Bradley/Lymp Hematologic/Lymphatic: No easy bleeding or easy bruising Exam Const General: cooperative, healthy appearing, no acute distress and well developed Nutritional Appearance: average body habitus and well nourished Orientation: alert and oriented x3 [facility] Head: normocephalic Ears: hearing grossly normal bilaterally Mouth: moist mucous membranes Teeth and gingiva: dentition normal Eyes Conjunctivae: conjunctivae normal Sclera: sclerae normal Neck Neck: normal visual inspection, full ROM and trachea midline Resp Effort Inspection: normal respiratory effort, able to speak in complete sentences and symmetric chest movement Auscultation: Bilateral: Clear to Auscultation Cardio Rate: regular rate Rhythm: regular rhythm GI Inspection: normal to inspection Auscultation: normal bowel sounds Palpation: soft and no hepatosplenomegaly Rectal Exam: deferred Skin General: no rashes or lesions noted and turgor normal Neuro General: patient alert and patient oriented x3 Cranial Nerves: other (CN' grossly intact, non-focal exam) Cognition: normal cognition Speech: speech normal Gait: normal gait Extrem General: normal to inspection (no edema noted) Psych Appearance: grossly normal and well kempt Affect: normal affect Attitude: cooperative Thought Process: normal Assessment and Plan Assessment and Plan (1) Type B viral hepatitis: Status: Acute Qualifiers: Viral hepatitis chronicity: chronic Hepatic coma status: without hepatic coma (2) Screening for colon cancer: Status: Acute Orders: Orders Abdomen Limited Today B19.10 - Unspecified viral hepatitis B without hepatic coma Hepatitis B Kelly (more content not included)... Normal [facility] [employer] Cytology Reporton 2023 [employer] Cyt[employer] Report . Pathology Reports Accession: Collected Date/Time: Received Date/Time: Pathologist: [id number] 09/16/2024 11:06 EDT 09/16/2024 18:00 EDT [employer] Report SPECIMEN: Specimen Description: Liquid Prep w/ HPV Specimen: Cervical/Endocervical Screening or Diagnostic: Screening RELEVANT HISTORY: LMP: n/a SPECIMEN ADEQUACY: SATISFACTORY FOR EVALUATION Endocervical/Transform ational zone component presence can not be determined due to marked atrophy INTERPRETATION/RESULTS : NEGATIVE FOR INTRAEPITHELIAL LESION OR MALIGNANCY HIGH RISK HPV TESTING: Event Code Result HPV Interp See Interp HPVN HPV Interp Text: High Risk HPV Typing: NEGATIVE HPV types 16, 18, 31, 33, 35, 39, 45, 51, 52, 56, 58, 59, 66 and 68 DNA were undetectable or below the pre-set threshold. The adarsh High-Risk HPV DNA Test is not intended for use as a screening device for Pap normal women under age 30 and is not intended to substitute for regular Pap screening. The adarsh High-Risk HPV DNA Test is designed to augment existing methods for the detection of cervical disease and should be used in conjunction with clinical information derived from other diagnostic and screening tests, physical examinations and full medical history in accordance with appropriate patient management procedures. NOTE: A negative result does not preclude the presence of HPV infection because results depend on adequate specimen collection, absence of inhibitors and sufficient DNA to be detected. As of: 09/22/24 12:26 EST COMMENT: This Pap Test was successfully processed and evaluated with the assistance of the [employer] ThinPrep Test Imaging System. Pathology Reports Accession: Collected Date/Time: Received Date/Time: Pathologist: [id number] 09/16/2024 11:06 EDT 09/16/2024 18:00 EDT Electronically Signed by Pathology report verified by [facility] Screened by: KK Electronically signed by Maddy ABBASI ([facility]) Sign-Out Date: 09/22/2024 12:26 Performing Lab: [facility], [address] [place] [address] Pathology Dept Disclaimer The Pap test is a screening test for cervical cancer. As evidenced by published data, it is subject to both inherent false negative and false positive results. Your patient's results should be interpreted in context with pertinent clinical history including gynecological examination. Normal [facility] HPVon 09-21-2024 HPV Interp Normal See Interp HPVN [facility] Comment on above: Order Comment: Order placed by AP_HPV_ORDER rule from [id number] Result Comment: High Risk HPV Typing: NEGATIVE HPV types 16, 18, 31, 33, 35, 39, 45, 51, 52, 56, 58, 59, 66 and 68 DNA were undetectable or below the pre-set threshold. The adarsh High-Risk HPV DNA Test is not intended for use as a screening device for Pap normal women under age 30 and is not intended to substitute for regular Pap screening. The adarsh High-Risk HPV DNA Test is designed to augment existing methods for the detection of cervical disease and should be used in conjunction with clinical information derived from other diagnostic and screening tests, physical examinations and full medical history in accordance with appropriate patient management procedures. NOTE: A negative result does not preclude the presence of HPV infection because results depend on adequate specimen collection, absence of inhibitors and sufficient DNA to be detected. See Interp HPVN Performed By: #### H PV #### [place] [address] HPV Source Cervix Normal [facility] Comment on above: Order Comment: Order placed by AP_HPV_ORDER rule from [id number] Performed By: #### H PV #### [place] [address] .HBsAg Confon 09-20-2024 HBsAg Confirmation Positive Abnormal [facility] Comment on above: Result Comment: Resu lt confirmed by neutralization. Performed At: [facility] [id number] Manas Gray PhD Ph:[phone] Performed By: #### A DANAE, GFR, CBC, ADIFF, CMP, TSH, LIPID, [id number], [id number], A1C ####[place] [address]#### HBCM, HBSAG ####[address] [address] HBCNFon 09-20-2024 HBsAg Screen Confirm. indicated Normal Negative [facility] Comment on above: Result Comment: Perf ormed At: [facility] [address] [id number] Mansa Gray PhD Ph:[phone] Performed By: #### A DANAE, GFR, CBC, ADIFF, CMP, TSH, LIPID, [id number], [id number], A1C ####[place] [address]#### HBCM, HBSAG ####[place] [address] .Auto Diffon 09-16-2024 Basophil, Absolute 0.1 10 3/mcL Normal 0.0-0.2 [facility] Comment on above: Performed By: #### A DANAE, GFR, CBC, ADIFF, CMP, TSH, LIPID, [id number], [id number], A1C #### [place] [address] #### HBCM, HBSAG #### [address] [address] Basophils/100 WBC (Bld) 1.0 % Normal 0.0-2.5 [facility] Comment on above: Performed By: #### A DANAE, GFR, CBC, ADIFF, CMP, TSH, LIPID, [id number], [id number], A1C #### [place] [address] #### HBCM, HBSAG #### [place] [address] Eosinophil, Absolute 0.3 10 3/mcL Normal 0.0-0.7 [facility] Comment on above: Performed By: #### A DANAE, GFR, CBC, ADIFF, CMP, TSH, LIPID, [id number], [id number], A1C #### [address] [address] #### HBCM, HBSAG #### [address] [address] Eosinophils/100 WBC (Bld) 4.3 % Normal 0.0-7.0 [facility] Comment on above: Performed By: #### A DANAE, GFR, CBC, ADIFF, CMP, TSH, LIPID, [id number], [id number], A1C #### [place] [address] #### HBCM, HBSAG #### [address] [address] Lymphocyte, Absolute 2.7 10 3/mcL Normal 0.9-4.3 [facility] Comment on above: Performed By: #### A DANAE, GFR, CBC, ADIFF, CMP, TSH, LIPID, [id number], [id number], A1C #### [place] [address] #### HBCM, HBSAG #### [address] [address] Lymphocytes/100 WBC (Bld) 34.2 % Normal 20.0-40.0 [facility] Comment on above: Performed By: #### A DANAE, GFR, CBC, ADIFF, CMP, TSH, LIPID, [id number], [id number], A1C #### [address] [address] #### HBCM, HBSAG #### [address] [address] Monocyte, Absolute 0.7 10 3/mcL Normal 0.1-1.4 [facility] Comment on above: Performed By: #### A DANAE, GFR, CBC, ADIFF, CMP, TSH, LIPID, [id number], [id number], A1C #### [place] [address] #### HBCM, HBSAG #### [address] [address] Monocytes/100 WBC (Bld) 9.1 % Normal 2.0-13.0 [facility] Comment on above: Performed By: #### A DANAE, GFR, CBC, ADIFF, CMP, TSH, LIPID, [id number], [id number], A1C #### [address] [address] #### HBCM, HBSAG #### [address] [address] Neutrophils/100 WBC (Bld) 51.4 % Normal 50.0-75.0 [facility] Comment on above: Performed By: #### A DANAE, GFR, CBC, ADIFF, CMP, TSH, LIPID, [id number], [id number], A1C #### [address] [address] #### HBCM, HBSAG #### [address] [address] .GFRon 09-16-2024 GFR 85 ml/min/1.73sqm Normal [facility] Comment on above: Result Comment: GFR Population mean for , Non- Americans Ages 20-29 = 116 mL/min/1.73 sq.m. Ages 30-39 = 107 mL/min/1.73 sq.m. Ages 40-49 = 99 mL/min/1.73 sq.m. Ages 50-59 = 93 mL/min/1.73 sq.m. Ages 60-69 = 85 mL/min/1.73 sq.m. Ages 70+ = 75 mL/min/1.73 sq.m. Chronic Kidney Disease: Less than 60 mL/min/1.73 square meters End Stage Renal Disease: Less than 15 mL/min/1.73 square meters Performed By: #### A DANAE, GFR, CBC, ADIFF, CMP, TSH, LIPID, [id number], [id number], A1C #### [address] [address] #### HBCM, HBSAG #### [address] [address] GFR Non- 70 ml/min/1.73sqm Normal [facility] Comment on above: Result Comment: GFR Population mean for , Non- Americans Ages 20-29 = 116 mL/min/1.73 sq.m. Ages 30-39 = 107 mL/min/1.73 sq.m. Ages 40-49 = 99 mL/min/1.73 sq.m. Ages 50-59 = 93 mL/min/1.73 sq.m. Ages 60-69 = 85 mL/min/1.73 sq.m. Ages 70+ = 75 mL/min/1.73 sq.m. Chronic Kidney Disease: Less than 60 mL/min/1.73 square meters End Stage Renal Disease: Less than 15 mL/min/1.73 square meters Performed By: #### A DANAE, GFR, CBC, ADIFF, CMP, TSH, LIPID, [id number], [id number], A1C #### [address] [address] #### HBCM, HBSAG #### [address] [address] .NEUABSon 09-16-2024 Neutrophil, Absolute 4.1 10 3/mcL Normal 2.3-8.1 [facility] Comment on above: Performed By: #### A DANAE, GFR, CBC, ADIFF, CMP, TSH, LIPID, [id number], [id number], A1C #### [address] [address] #### HBCM, HBSAG #### [address] [address] A1Con 09-16-2024 Glucose [Mass/Vol] 123 mg/dL Normal [facility] Comment on above: Result Comment: Lesa mated Average Glucose calculated by equation ((28.7xA1C)-46.7) Estimated average glucose (eAG) is a calculated value from Hemoglobin A1C and is medical service representative of the average blood glucose level in the last 2-3 month period. Normal range: less than 114 mg/dL Performed By: #### A DANAE, GFR, CBC, ADIFF, CMP, TSH, LIPID, [id number], [id number], A1C #### [address] [address] #### HBCM, HBSAG #### [address] [address] HbA1c (Bld) [Mass fraction] 5.9 % Normal 4.3-6.4 [facility] Comment on above: Performed By: #### A DANAE, GFR, CBC, ADIFF, CMP, TSH, LIPID, [id number], [id number], A1C #### [address] [address] #### HBCM, HBSAG #### [address] [address] CBCon 09-16-2024 Erythrocyte distribution width (RBC) [Ratio] 14.1 % Normal 11.5-15.5 [facility] Comment on above: Performed By: #### A DANAE, GFR, CBC, ADIFF, CMP, TSH, LIPID, [id number], [id number], A1C #### [address] [address] #### HBCM, HBSAG #### [place] [address] Hematocrit (Bld) [Volume fraction] 35.6 % Normal 34.0-46.0 [facility] Comment on above: Performed By: #### A DANAE, GFR, CBC, ADIFF, CMP, TSH, LIPID, [id number], [id number], A1C #### [place] [address] #### HBCM, HBSAG #### [place] [address] Hgb 11.5 G/dL Low 12.0-16.0 [facility] Comment on above: Performed By: #### A DANAE, GFR, CBC, ADIFF, CMP, TSH, LIPID, [id number], [id number], A1C #### [address] [address] #### HBCM, HBSAG #### [place] [address] MCH (RBC) [Entitic mass] 25.2 pg Low 27.0-33.0 [facility] Comment on above: Performed By: #### A DANAE, GFR, CBC, ADIFF, CMP, TSH, LIPID, [id number], [id number], A1C #### [place] [address] #### HBCM, HBSAG #### [place] [address] MCHC 32.3 G/dL Normal 32.0-36.0 [facility] Comment on above: Performed By: #### A DANAE, GFR, CBC, ADIFF, CMP, TSH, LIPID, [id number], [id number], A1C #### [place] [address] #### HBCM, HBSAG #### [place] [address] MCV (RBC) [Entitic vol] 78.0 fL Low 80.0-99.0 [facility] Comment on above: Performed By: #### A DANAE, GFR, CBC, ADIFF, CMP, TSH, LIPID, [id number], [id number], A1C #### [place] [address] #### HBCM, HBSAG #### [place] [address] Platelet 296 10 3/mcL Normal 150-450 [facility] Comment on above: Performed By: #### A DANAE, GFR, CBC, ADIFF, CMP, TSH, LIPID, [id number], [id number], A1C #### [place] [address] #### HBCM, HBSAG #### [place] [address] Platelet mean volume (Bld) [Entitic vol] 9.6 fL Normal 6.6-10.5 [facility] Comment on above: Performed By: #### A DANAE, GFR, CBC, ADIFF, CMP, TSH, LIPID, [id number], [id number], A1C #### [place] [address] #### HBCM, HBSAG #### [place] [address] RBC 4.57 10 6/mcL Normal 4.10-5.30 [facility] Comment on above: Performed By: #### A DANAE, GFR, CBC, ADIFF, CMP, TSH, LIPID, [id number], [id number], A1C #### [address] [address] #### HBCM, HBSAG #### [address] [address] WBC 7.9 10 3/mcL Normal 4.5-10.8 [facility] Comment on above: Performed By: #### A DANAE, GFR, CBC, ADIFF, CMP, TSH, LIPID, [id number], [id number], A1C #### [address] [address] #### HBCM, HBSAG #### [address] [address] CMPon 09-16-2024 Albumin Level 3.5 G/dL Normal 3.4-4.8 [facility] Comment on above: Performed By: #### A DANAE, GFR, CBC, ADIFF, CMP, TSH, LIPID, [id number], [id number], A1C #### [address] [address] #### HBCM, HBSAG #### [address] [address] Albumin/Globulin [Mass ratio] 0.9 {ratio} Low 1.1-2.5 [facility] Comment on above: Performed By: #### A DANAE, GFR, CBC, ADIFF, CMP, TSH, LIPID, [id number], [id number], A1C #### [address] [address] #### HBCM, HBSAG #### [address] [address] ALP [Catalytic activity/Vol] 97 U/L Normal 40-135 [facility] Comment on above: Performed By: #### A DANAE, GFR, CBC, ADIFF, CMP, TSH, LIPID, [id number], [id number], A1C #### [address] [address] #### HBCM, HBSAG #### [address] [address] ALT [Catalytic activity/Vol] 31 U/L Normal 14-59 [facility] Comment on above: Performed By: #### A DANAE, GFR, CBC, ADIFF, CMP, TSH, LIPID, [id number], [id number], A1C #### [address] [address] #### HBCM, HBSAG #### [address] [address] AST [Catalytic activity/Vol] 20 U/L Normal 10-40 [facility] Comment on above: Performed By: #### A DANAE, GFR, CBC, ADIFF, CMP, TSH, LIPID, [id number], [id number], A1C #### [address] [address] #### HBCM, HBSAG #### [address] [address] Bili Total 0.6 mg/dL Normal 0.2-1.0 [facility] Comment on above: Result Comment: Use of this assay is not recommended for patients undergoing treatment with eltrombopag due to the potential for falsely elevated results. Performed By: #### A DANAE, GFR, CBC, ADIFF, CMP, TSH, LIPID, [id number], [id number], A1C #### [address] [address] #### HBCM, HBSAG #### [address] [address] BUN/Creatinine Ratio 16 ratio Normal 7-27 [facility] Comment on above: Performed By: #### A DANAE, GFR, CBC, ADIFF, CMP, TSH, LIPID, [id number], [id number], A1C #### [address] [address] #### HBCM, HBSAG #### [address] [address] Calcium [Mass/Vol] 9.0 mg/dL Normal 8.4-10.2 [facility] Comment on above: Performed By: #### A DANAE, GFR, CBC, ADIFF, CMP, TSH, LIPID, [id number], [id number], A1C #### [address] [address] #### HBCM, HBSAG #### [address] [address] Chloride [Moles/Vol] 106 mmol/L Normal 98-107 [facility] Comment on above: Performed By: #### A DANAE, GFR, CBC, ADIFF, CMP, TSH, LIPID, [id number], [id number], A1C #### [address] [address] #### HBCM, HBSAG #### [address] [address] CO2 [Moles/Vol] 28 mmol/L Normal 23-31 [facility] Comment on above: Performed By: #### A DANAE, GFR, CBC, ADIFF, CMP, TSH, LIPID, [id number], [id number], A1C #### [place] [address] #### HBCM, HBSAG #### [address] [address] Creatinine [Mass/Vol] 0.82 mg/dL Normal 0.55-1.02 [facility] Comment on above: Result Comment: Test ing performed on Siemens Dimension EXL analyzer using a modified kinetic Gil technique. Performed By: #### A DANAE, GFR, CBC, ADIFF, CMP, TSH, LIPID, [id number], [id number], A1C #### [place] [address] #### HBCM, HBSAG #### [address] [address] Electrolyte Balance 9.0 mEq/L Normal 4.0-15.0 [facility] Comment on above: Performed By: #### A DANAE, GFR, CBC, ADIFF, CMP, TSH, LIPID, [id number], [id number], A1C #### [address] [address] #### HBCM, HBSAG #### [address] [address] Globulin 4.1 G/dL Normal [facility] Comment on above: Performed By: #### A DANAE, GFR, CBC, ADIFF, CMP, TSH, LIPID, [id number], [id number], A1C #### [address] [address] #### HBCM, HBSAG #### [address] [address] Glucose [Mass/Vol] 105 mg/dL Normal 80-115 [facility] Comment on above: Performed By: #### A DANAE, GFR, CBC, ADIFF, CMP, TSH, LIPID, [id number], [id number], A1C #### [address] [address] #### HBCM, HBSAG #### [address] [address] Potassium [Moles/Vol] 4.2 mmol/L Normal 3.5-5.1 [facility] Comment on above: Performed By: #### A DANAE, GFR, CBC, ADIFF, CMP, TSH, LIPID, [id number], [id number], A1C #### [address] [address] #### HBCM, HBSAG #### [address] [address] Sodium [Moles/Vol] 143 mmol/L Normal 136-145 [facility] Comment on above: Performed By: #### A DANAE, GFR, CBC, ADIFF, CMP, TSH, LIPID, [id number], [id number], A1C #### [address] [address] #### HBCM, HBSAG #### [address] [address] Total Protein 7.6 G/dL Normal 6.4-8.2 [facility] Comment on above: Performed By: #### A DANAE, GFR, CBC, ADIFF, CMP, TSH, LIPID, [id number], [id number], A1C #### [address] [address] #### HBCM, HBSAG #### [facility] [address] [place] [address] Urea nitrogen [Mass/Vol] 13 mg/dL Normal 7-18 [facility] Comment on above: Performed By: #### A DANAE, GFR, CBC, ADIFF, CMP, TSH, LIPID, [id number], [id number], A1C #### [address] [address] #### HBCM, HBSAG #### [place] [address] HBCMon 09-16-2024 Hep B Core IgM Ab Non-Reactive Normal Non-Reactive [facility] Comment on above: Performed By: #### A DANAE, GFR, CBC, ADIFF, CMP, TSH, LIPID, [id number], [id number], A1C ####[place] [address]#### HBCM, HBSAG ####[place] [address] Hep B Core IgM Ab Int Normal [facility] Comment on above: Result Comment: Samp les with a value < 0.80 Index are considered nonreactive (negative) for IgM antibodies to hepatitis B core antigen. See Interp Performed By: #### A DANAE, GFR, CBC, ADIFF, CMP, TSH, LIPID, [id number], [id number], A1C ####[place] [address]#### HBCM, HBSAG ####[place] [id number] HBSAGon 09-16-2024 Hep B Surf Ag Reactive Abnormal Non-Reactive [facility] Comment on above: Performed By: #### A DANAE, GFR, CBC, ADIFF, CMP, TSH, LIPID, [id number], [id number], A1C ####[place] [address]#### HBCM, HBSAG ####[place] [address] LABORATORYOrdered By: SYSTEM SYSTEM on 09-16-2024 Albumin BCP dye [Mass/Vol] 3.5 G/dL Normal 3.4 - 4.8 G/dL AO ADM SS Albumin/Globulin [Mass ratio] 0.9 {ratio} Low 1.1 - 2.5 ratio AO ADM SS ALP [Catalytic activity/Vol] 97 U/L Normal 40 - 135 U/L AO ADM SS ALT With P-5'-P [Catalytic activity/Vol] 31 U/L Normal 14 - 59 U/L AO ADM SS AST With P-5'-P [Catalytic activity/Vol] 20 U/L Normal 10 - 40 U/L AO ADM SS Basophils (Bld) [#/Vol] 0.1 103/mcL Normal 0.0 - 0.2 10^3/mcL AO Workflow SS Basophils/100 WBC (Bld) 1.0 % Normal 0.0 - 2.5 % AO Workflow SS Bilirubin [Mass/Vol] 0.6 mg/dL Normal 0.2 - 1 .0 mg/dL AO ADM SS Comment on above: Interpretive Data: U se of this assay is not recommended for patients undergoing treatment with eltrombopag due to the potential for falsely elevated results. Calcium [Mass/Vol] 9.0 mg/dL Normal 8.4 - 10. 2 mg/dL AO ADM SS Chloride [Moles/Vol] 106 mmol/L Normal 98 - 10 7 mmol/L AO ADM SS CO2 [Moles/Vol] 28 mmol/L Normal 23 - 31 mmol/L AO AD M SS Creatinine [Mass/Vol] 0.82 mg/dL Normal 0.55 - 1.02 mg/dL AO ADM SS Comment on above: Interpretive Data: T esting performed on Siemens Dimension EXL analyzer using a modified kinetic Gil technique. Electrolyte Balance 9.0 mEq/L Normal 4.0 - 15 .0 mEq/L AO ADM SS Eosinophil, Absolute 0.3 103/mcL Normal 0.0 - 0 .7 10^3/mcL AO Workflow SS Eosinophils/100 WBC (Bld) 4.3 % Normal 0.0 - 7.0 % AO Workflow SS Erythrocyte distribution width (RBC) [Ratio] 14.1 % Normal 11.5 - 15.5 % AO Workflow SS GFR/1.73 sq M.predicted among blacks MDRD (S/P/Bld) [Vol rate/Area] 85 ml/min/1.73sqm Invalid Interpretation Code AO Chemistry S Comment on above: Interpretive Data: GFR Population mean for , Non- Americans Ages 20-29 = 116 mL/min/1.73 sq.m. Ages 30-39 = 107 mL/min/1.73 sq.m. Ages 40-49 = 99 mL/min/1.73 sq.m. Ages 50-59 = 93 mL/min/1.73 sq.m. Ages 60-69 = 85 mL/min/1.73 sq.m. Ages 70+ = 75 mL/min/1.73 sq.m. Chronic Kidney Disease: Less than 60 mL/min/1.73 square meters End Stage Renal Disease: Less than 15 mL/min/1.73 square meters GFR/1.73 sq M.predicted among non-blacks MDRD (S/P/Bld) [Vol rate/Area] 70 ml/min/1.73sqm Invalid Interpretation Code AO Chemistry S Comment on above: Interpretive Data: GFR Population mean for , Non- Americans Ages 20-29 = 116 mL/min/1.73 sq.m. Ages 30-39 = 107 mL/min/1.73 sq.m. Ages 40-49 = 99 mL/min/1.73 sq.m. Ages 50-59 = 93 mL/min/1.73 sq.m. Ages 60-69 = 85 mL/min/1.73 sq.m. Ages 70+ = 75 mL/min/1.73 sq.m. Chronic Kidney Disease: Less than 60 mL/min/1.73 square meters End Stage Renal Disease: Less than 15 mL/min/1.73 square meters Globulin 4.1 G/dL Invalid Interpretation Code AO ADM SS Glucose [Mass/Vol] 105 mg/dL Normal 80 - 115 mg/dL AO ADM SS Glucose [Mass/Vol] 123 mg/dL Invalid Interpretation Code AO Chemistry S Comment on above: Interpretive Data: E stimated average glucose (eAG) is a calculated value from Hemoglobin A1C and is medical service representative of the average blood glucose level in the last 2-3 month period. Normal range: less than 114 mg/dL HbA1c (Bld) [Mass fraction] 5.9 % Normal 4.3 - 6.4 % AO ADM SS Hematocrit (Bld) [Volume fraction] 35.6 % Normal 34.0 - 46.0 % AO Workflow SS Hemoglobin (Bld) [Mass/Vol] 11.5 G/dL Low 12.0 - 16.0 G/dL AO Workflow SS Lymphocytes (Bld) [#/Vol] 2.7 103/mcL Normal 0.9 - 4.3 10^3/mcL AO Workflow SS Lymphocytes/100 WBC (Bld) 34.2 % Normal 20.0 - 40.0 % AO Workflow SS MCH (RBC) [Entitic mass] 25.2 pg Low 27.0 - 33.0 pg AO Workflow SS MCHC 32.3 G/dL Normal 32.0 - 36.0 G/dL AO Workflow SS MCV (RBC) [Entitic vol] 78.0 fL Low 80.0 - 99.0 fL AO Workflow SS Monocytes (Bld) [#/Vol] 0.7 103/mcL Normal 0.1 - 1.4 10^3/mcL AO Workflow SS Monocytes/100 WBC (Bld) 9.1 % Normal 2.0 - 13.0 % AO Workflow SS Neutrophils (Bld) [#/Vol] 4.1 103/mcL Normal 2.3 - 8.1 10^3/mcL AO Workflow SS Neutrophils/100 WBC (Bld) 51.4 % Normal 50.0 - 75.0 % AO Workflow SS Platelet mean volume (Bld) [Entitic vol] 9.6 fL Normal 6.6 - 10.5 fL AO Workflow SS Platelets (Bld) [#/Vol] 296 103/mcL Normal 150 - 450 10^3/mcL AO Workflow SS Potassium [Moles/Vol] 4.2 mmol/L Normal 3.5 - 5.1 mmol/L AO ADM SS Protein [Mass/Vol] 7.6 G/dL Normal 6.4 - 8.2 G/dL AO ADM SS RBC (Bld) [#/Vol] 4.57 106/mcL Normal 4.10 - 5.3 0 10^6/mcL AO Workflow SS Sodium [Moles/Vol] 143 mmol/L Normal 136 - 145 mmol/L AO ADM SS TSH Qn 0.90 m[IU]/L Normal 0.36 - 3.74 mcIU/mL AO ADM SS Urea nitrogen [Mass/Vol] 13 mg/dL Normal 7 - 18 mg/dL AO ADM SS Urea nitrogen/Creatinine [Mass ratio] 16 ratio Normal 7 - 27 ratio AO ADM SS WBC (Bld) [#/Vol] 7.9 103/mcL Normal 4.5 - 10.8 10^3/mcL AO Workflow SS LABORATORYOrdered By: Jag Sawyer on 09-16-2024 Cholesterol [Mass/Vol] 208 mg/dL High 0 - 200 mg/dL AO ADM SS Comment on above: Interpretive Data: C holesterol Reference Interval: Less than 200 Desirable 200-239 Borderline high risk 240 and above High risk Cholesterol in HDL [Mass/Vol] 54 mg/dL Normal 40 - 60 mg/dL AO ADM SS Cholesterol in LDL [Mass/Vol] 121 mg/dL Normal 0 - 130 mg/dL AO ADM SS Triglyceride [Mass/Vol] 164 mg/dL High 0 - 150 mg/dL AO ADM SS Comment on above: Interpretive Data: T riglyceride Reference Interval: Less than 150 Normal 150-199 Borderline high risk 200-499 High risk 500 or higher Very high risk LABORATORYOrdered By: [employer] CONTRIBUTOR_SYSTEM on 09-16-2024 HBsAg Confirmation (LC) Positive Invalid Interpretation Code AO Sendouts SS Comment on above: Result Comment: Resu lt confirmed by neutralization. Performed At: [email or web address] [id number] Manas Gray PhD Ph:[phone] HBsAg Screen (LC) Confirm. indicated Invalid Interpretation Code Negative AO Sendouts SS Comment on above: Result Comment: Perf ormed At: [email or web address] [address] [id number] Manas Gray PhD Ph:[phone] LABORATORYOrdered By: Lisa Redding on 09-16-2024 HBV core IgM IA Ql Non-Reactive (09/16/24 1:47 PM) Normal Non-Reactive AH ADM SS HBV core IgM IA Ql Samples with a value < 0.80 Index are considered nonreactive (negative) for IgM antibodies to hepatitis B core antigen. Invalid Interpretation Code Chemistry S HBV surface Ag IA Ql Reactive *ABN* (09/16/24 1:47 PM) Invalid Interpretation Code Non-Reactive AH ADM SS LIPIDon 09-16-2024 Cholesterol [Mass/Vol] 208 mg/dL High 0-200 [facility] Comment on above: Result Comment: Chol esterol Reference Interval: Less than 200 Desirable 200-239 Borderline high risk 240 and above High risk Performed By: #### A DANAE, GFR, CBC, ADIFF, CMP, TSH, LIPID, [id number], [id number], A1C ####[place] [address]#### HBCM, HBSAG ####[address] [address] Cholesterol in HDL [Mass/Vol] 54 mg/dL Normal 40-60 [facility] Comment on above: Performed By: #### A DANAE, GFR, CBC, ADIFF, CMP, TSH, LIPID, [id number], [id number], A1C ####[place] [address]#### HBCM, HBSAG ####[address] [address] Cholesterol in LDL [Mass/Vol] 121 mg/dL Normal 0-130 [facility] Comment on above: Performed By: #### A DANAE, GFR, CBC, ADIFF, CMP, TSH, LIPID, [id number], [id number], A1C ####[place] [address]#### HBCM, HBSAG ####[address] [address] Triglyceride [Mass/Vol] 164 mg/dL High 0-150 [facility] Comment on above: Result Comment: Trig lyceride Reference Interval: Less than 150 Normal 150-199 Borderline high risk 200-499 High risk 500 or higher Very high risk Performed By: #### A DANAE, GFR, CBC, ADIFF, CMP, TSH, LIPID, [id number], [id number], A1C ####[place] [address]#### HBCM, HBSAG ####[address] [address] TSHon 09-16-2024 TSH Qn 0.90 m[IU]/L Normal 0.36-3.74 [facility] Comment on above: Performed By: #### A DANAE, GFR, CBC, ADIFF, CMP, TSH, LIPID, [id number], [id number], A1C #### [place] [address] [place], [place] [address] #### HBCM, HBSAG #### [facility] [address] [place], [place] [address] [place] MAMMOGRAM SCREENING BILAT ERAL W/TOMOon 04-04-2024 [place] MAMMOGRAM SCREENING BILATERAL W/MITCHELL ORIGINAL FROM: [facility] [address] [place] [address] PROCEDURE FOR: JESSIKA PAPPAS [address] [place] [address] Home: PID#: [id number] Exam#: [id number] : 1960 Age: 63 TO: ERICA HERNANDEZ [address] [address] Fax: NO FAX EXAMINATION: SCREENING DIGITAL BILATERAL MAMMOGRAM WITH TOMOSYNTHESIS, 03/31/2024 2:33 pm TECHNIQUE: Screening mammography of the bilateral breasts was performed with tomosynthesis. 2D standard and 3D tomosynthesis combination imaging performed through both breasts in the MLO and CC projection. Computer aided detection was utilized in the interpretation of this exam. COMPARISON: January 15, 2023, October 08, 2021, October 23, 2017 HISTORY: Breast cancer screening. FINDINGS: BREAST DENSITY: Heterogeneously dense There is no suspicious mass, architectural distortion or microcalcification. Fibroglandular pattern is stable. IMPRESSION: No mammographic evidence of malignancy. Continued screening with annual mammograms is recommended. Rishi Gruber risk calculations, generated with the history provided, report this patient's 10 year risk and lifetime risk for developing breast cancer at 4.4% and 9.4%, respectively. Based on this assessment tool, if the patient's calculated lifetime risk is below 20%, then the patient is considered at average risk for developing breast cancer. If the patient's calculated lifetime risk is at or above 20%, then the patient is considered high risk for developing breast cancer and may be a candidate for supplemental breast MRI screening in addition to annual mammographic screening per the [place] [employer]. BIRADS: MAMMOGRAM BI-RADS: 1: Negative RECALL: 1 year screening RECALL TYPE: mammo LETTER SENT: Normal BI-RADS 1 and 2 Interpreted by: Grecia Garner Preliminary Report By: Grecia Garner Electronically signed By Grecia Garner Dictated Date: 04/04/2024 10:02:25 AM Prelim Date: 04/04/2024 10:13:58 AM Sign Date: 04/04/2024 10:13:58 AM Ordering Provider: ERICA HERNANDEZ [employer] Stock Checker: CHERELLE YOUNG letter sent: Normal BI-RADS 1 and 2 Mammogram BI-RADS: 1 Negative Normal [facility] ([place]) HBCABon 03-12-2024 Hep B Core Total Ab Positive Abnormal Negative [facility] ([place]) Comment on above: Result Comment: Perf ormed At: [facility] [address] [id number] Manas Gray PhD Ph:[phone] Performed By: #### H BSAG, HBSAB, HBCM #### [place] [address] #### CMP, CBC, GFR, ADIFF, TSH, ANEU, [id number] #### [address] [address] .Auto Diffon 03-11-2024 Basophil, Absolute 0.1 10 3/mcL Normal 0.0-0.2 [facility]) Comment on above: Performed By: #### H BSAG, HBSAB, HBCM #### [place] [address] #### CMP, CBC, GFR, ADIFF, TSH, ANEU, [id number] #### [address] [address] Basophils/100 WBC (Bld) 1.1 % Normal 0.0-2.5 [facility]) Comment on above: Performed By: #### H BSAG, HBSAB, HBCM #### [place] [address] #### CMP, CBC, GFR, ADIFF, TSH, ANEU, [id number] #### [address] [place] [address] Eosinophil, Absolute 1.2 10 3/mcL High 0.0-0.4 [facility] ([place]) Comment on above: Performed By: #### H BSAG, HBSAB, HBCM #### [place] [address] #### CMP, CBC, GFR, ADIFF, TSH, ANEU, 865823 #### [address] [address] Eosinophils/100 WBC (Bld) 13.1 % High 0.0-7.0 [facility] ([place]) Comment on above: Performed By: #### H BSAG, HBSAB, HBCM #### [place] [address] #### CMP, CBC, GFR, ADIFF, TSH, ANEU, 816199 #### [address] [address] Lymphocyte, Absolute 2.8 10 3/mcL Normal 0.8-3.9 [facility] ([place]) Comment on above: Performed By: #### H BSAG, HBSAB, HBCM #### [place] [address] #### CMP, CBC, GFR, ADIFF, TSH, ANEU, 767525 #### [address] [address] Lymphocytes/100 WBC (Bld) 31.5 % Normal 10.0-50.0 [facility] ([place]) Comment on above: Performed By: #### H BSAG, HBSAB, HBCM #### [place] [address] #### CMP, CBC, GFR, ADIFF, TSH, ANEU, 083184 #### [address] [address] Monocyte, Absolute 0.7 10 3/mcL Normal 0.2-1.0 [facility] ([place]) Comment on above: Performed By: #### H BSAG, HBSAB, HBCM #### [place] [address] #### CMP, CBC, GFR, ADIFF, TSH, ANEU, 273279 #### [address] [address] Monocytes/100 WBC (Bld) 7.6 % Normal 1.7-13.0 [facility] ([place]) Comment on above: Performed By: #### H BSAG, HBSAB, HBCM #### [place] [address] #### CMP, CBC, GFR, ADIFF, TSH, ANEU, 715062 #### [address] [address] Neutrophils/100 WBC (Bld) 46.7 % Normal 37.0-80.0 [facility] ([place]) Comment on above: Performed By: #### H BSAG, HBSAB, HBCM #### [place] [address] #### CMP, CBC, GFR, ADIFF, TSH, ANEU, 667804 #### [address] [address] .GFRon 03-11-2024 GFR 91 ml/min/1.73sqm Normal [facility] ([place]) Comment on above: Result Comment: GFR Population mean for , Non- Americans Ages 20-29 = 116 mL/min/1.73 sq.m. Ages 30-39 = 107 mL/min/1.73 sq.m. Ages 40-49 = 99 mL/min/1.73 sq.m. Ages 50-59 = 93 mL/min/1.73 sq.m. Ages 60-69 = 85 mL/min/1.73 sq.m. Ages 70+ = 75 mL/min/1.73 sq.m. Chronic Kidney Disease: Less than 60 mL/min/1.73 square meters End Stage Renal Disease: Less than 15 mL/min/1.73 square meters Performed By: #### H BSAG, HBSAB, HBCM #### [place] [address] #### CMP, CBC, GFR, ADIFF, TSH, ANEU, 794254 #### [address] [address] GFR Non- 75 ml/min/1.73sqm Normal [facility] ([place]) Comment on above: Result Comment: GFR Population mean for , Non- Americans Ages 20-29 = 116 mL/min/1.73 sq.m. Ages 30-39 = 107 mL/min/1.73 sq.m. Ages 40-49 = 99 mL/min/1.73 sq.m. Ages 50-59 = 93 mL/min/1.73 sq.m. Ages 60-69 = 85 mL/min/1.73 sq.m. Ages 70+ = 75 mL/min/1.73 sq.m. Chronic Kidney Disease: Less than 60 mL/min/1.73 square meters End Stage Renal Disease: Less than 15 mL/min/1.73 square meters Performed By: #### H BSAG, HBSAB, HBCM #### [place] [address] #### CMP, CBC, GFR, ADIFF, TSH, ANEU, [id number] #### [address] [address] .NEUABSon 03-11-2024 Neutrophil, Absolute 4.2 10 3/mcL Normal 2.9-6.2 [facility] ([place]) Comment on above: Performed By: #### H BSAG, HBSAB, HBCM #### [place] [address] #### CMP, CBC, GFR, ADIFF, TSH, ANEU, 578496 #### [address] [address] CBCon 03-11-2024 Erythrocyte distribution width (RBC) [Ratio] 13.7 % Normal 11.5-14.5 [facility] ([place]) Comment on above: Performed By: #### H BSAG, HBSAB, HBCM #### [place] [address] #### CMP, CBC, GFR, ADIFF, TSH, ANEU, 063681 #### [address] [address] Hematocrit (Bld) [Volume fraction] 35.0 % Low 37.0-47.0 [facility] ([place]) Comment on above: Performed By: #### H BSAG, HBSAB, HBCM #### [place] [address] #### CMP, CBC, GFR, ADIFF, TSH, ANEU, 375953 #### [place] [address] Hgb 11.8 G/dL Low 12.0-16.0 [facility] ([place]) Comment on above: Performed By: #### H BSAG, HBSAB, HBCM #### [place] [address] #### CMP, CBC, GFR, ADIFF, TSH, ANEU, 489576 #### [place] [address] MCH (RBC) [Entitic mass] 25.5 pg Low 27.0-31.2 [facility] ([place]) Comment on above: Performed By: #### H BSAG, HBSAB, HBCM #### [place] [address] #### CMP, CBC, GFR, ADIFF, TSH, ANEU, 049592 #### [place] [address] MCHC 33.8 G/dL Normal 33.0-37.0 [facility] ([place]) Comment on above: Performed By: #### H BSAG, HBSAB, HBCM #### [place] [address] #### CMP, CBC, GFR, ADIFF, TSH, ANEU, 373993 #### [place] [address] MCV (RBC) [Entitic vol] 75.4 fL Low 80.0-94.0 [facility] ([place]) Comment on above: Performed By: #### H BSAG, HBSAB, HBCM #### [place] [address] #### CMP, CBC, GFR, ADIFF, TSH, ANEU, 496203 #### [address] [address] Platelet 277 10 3/mcL Normal 130-400 [facility] ([place]) Comment on above: Performed By: #### H BSAG, HBSAB, HBCM #### [place] [address] #### CMP, CBC, GFR, ADIFF, TSH, ANEU, 008536 #### [address] [address] Platelet mean volume (Bld) [Entitic vol] 9.9 fL Normal 7.4-10.4 [facility] ([place]) Comment on above: Performed By: #### H BSAG, HBSAB, HBCM #### [place] [address] #### CMP, CBC, GFR, ADIFF, TSH, ANEU, 485951 #### [address] [address] RBC 4.64 10 6/mcL Normal 4.20-5.40 [facility] ([place]) Comment on above: Performed By: #### H BSAG, HBSAB, HBCM #### [place] [address] #### CMP, CBC, GFR, ADIFF, TSH, ANEU, 323755 #### [address] [address] WBC 8.9 10 3/mcL Normal 4.6-10.8 [facility] ([place]) Comment on above: Performed By: #### H BSAG, HBSAB, HBCM #### [place] [address] #### CMP, CBC, GFR, ADIFF, TSH, ANEU, 034948 #### [address] [address] CMPon 03-11-2024 Albumin Level 3.7 G/dL Normal 3.4-4.8 [facility] ([place]) Comment on above: Performed By: #### H BSAG, HBSAB, HBCM #### [place] [address] #### CMP, CBC, GFR, ADIFF, TSH, ANEU, 902685 #### [address] [address] Albumin/Globulin [Mass ratio] 0.9 {ratio} Low 1.1-2.5 [facility] ([place]) Comment on above: Performed By: #### H BSAG, HBSAB, HBCM #### [place] [address] #### CMP, CBC, GFR, ADIFF, TSH, ANEU, 986717 #### [address] [address] ALP [Catalytic activity/Vol] 105 U/L Normal 40-135 [facility] ([place]) Comment on above: Performed By: #### H BSAG, HBSAB, HBCM #### [place] [address] #### CMP, CBC, GFR, ADIFF, TSH, ANEU, 859469 #### [address] [address] ALT [Catalytic activity/Vol] 35 U/L Normal 14-59 [facility] ([place]) Comment on above: Performed By: #### H BSAG, HBSAB, HBCM #### [place] [address] #### CMP, CBC, GFR, ADIFF, TSH, ANEU, 242670 #### [address] [address] AST [Catalytic activity/Vol] 28 U/L Normal 10-40 [facility] ([place]) Comment on above: Performed By: #### H BSAG, HBSAB, HBCM #### [place] [address] #### CMP, CBC, GFR, ADIFF, TSH, ANEU, 082592 #### [address] [address] Bili Total 0.4 mg/dL Normal 0.2-1.0 [facility] ([place]) Comment on above: Result Comment: Use of this assay is not recommended for patients undergoing treatment with eltrombopag due to the potential for falsely elevated results. Performed By: #### H BSAG, HBSAB, HBCM #### [place] [address] #### CMP, CBC, GFR, ADIFF, TSH, ANEU, 160520 #### [address] [address] BUN/Creatinine Ratio 23 ratio Normal 7-27 [facility] ([place]) Comment on above: Performed By: #### H BSAG, HBSAB, HBCM #### [place] [address] #### CMP, CBC, GFR, ADIFF, TSH, ANEU, 306250 #### [address] [address] Calcium [Mass/Vol] 9.2 mg/dL Normal 8.4-10.2 [facility] ([place]) Comment on above: Performed By: #### H BSAG, HBSAB, HBCM #### [place] [address] #### CMP, CBC, GFR, ADIFF, TSH, ANEU, 151968 #### [address] [address] Chloride [Moles/Vol] 105 mmol/L Normal 98-107 [facility] ([place]) Comment on above: Performed By: #### H BSAG, HBSAB, HBCM #### [place] [address] #### CMP, CBC, GFR, ADIFF, TSH, ANEU, 992727 #### [address] [address] CO2 [Moles/Vol] 27 mmol/L Normal 23-31 [facility] ([place]) Comment on above: Performed By: #### H BSAG, HBSAB, HBCM #### [place] [address] #### CMP, CBC, GFR, ADIFF, TSH, ANEU, 101647 #### [address] [address] Creatinine [Mass/Vol] 0.77 mg/dL Normal 0.55-1.02 [facility] ([place]) Comment on above: Performed By: #### H BSAG, HBSAB, HBCM #### [place] [address] #### CMP, CBC, GFR, ADIFF, TSH, ANEU, 839885 #### [address] [address] Electrolyte Balance 11.0 mEq/L Normal 4.0-15.0 [facility] ([place]) Comment on above: Performed By: #### H BSAG, HBSAB, HBCM #### [place] [address] #### CMP, CBC, GFR, ADIFF, TSH, ANEU, [id number] #### [address] [address] Globulin 4.2 G/dL Normal [facility] ([place]) Comment on above: Performed By: #### H BSAG, HBSAB, HBCM #### [place] [address] #### CMP, CBC, GFR, ADIFF, TSH, ANEU, [id number] #### [address] [address] Glucose [Mass/Vol] 108 mg/dL Normal 80-115 [facility] ([place]) Comment on above: Performed By: #### H BSAG, HBSAB, HBCM #### [place] [address] #### CMP, CBC, GFR, ADIFF, TSH, ANEU, [id number] #### [address] [address] Potassium [Moles/Vol] 4.3 mmol/L Normal 3.5-5.1 [facility] ([place] Comment on above: Performed By: #### H BSAG, HBSAB, HBCM #### [place] [address] #### CMP, CBC, GFR, ADIFF, TSH, ANEU, [id number] #### [address] [address] Sodium [Moles/Vol] 143 mmol/L Normal 136-145 [facility] ([place] Comment on above: Performed By: #### H BSAG, HBSAB, HBCM #### [place] [address] #### CMP, CBC, GFR, ADIFF, TSH, ANEU, [id number] #### [address] [address] Total Protein 7.9 G/dL Normal 6.4-8.2 [facility] ([place] Comment on above: Performed By: #### H BSAG, HBSAB, HBCM #### [place] [address] #### CMP, CBC, GFR, ADIFF, TSH, ANEU, [id number] #### [address] [address] Urea nitrogen [Mass/Vol] 18 mg/dL Normal 7-18 [facility] ([place]) Comment on above: Performed By: #### H BSAG, HBSAB, HBCM #### [place] [address] #### CMP, CBC, GFR, ADIFF, TSH, ANEU, [id number] #### [address] [address] HBCMon 03-11-2024 Hep B Core IgM Ab Non-Reactive Normal Non-Reactive [facility] ([place]) Comment on above: Performed By: #### H BSAG, HBSAB, HBCM #### [place] [address] #### CMP, CBC, GFR, ADIFF, TSH, ANEU, 175697 #### [address] [address] Hep B Core IgM Ab Int Normal [facility] ([place]) Comment on above: Result Comment: Samp les with a value < 0.80 Index are considered nonreactive (negative) for IgM antibodies to hepatitis B core antigen. See Interp Performed By: #### H BSAG, HBSAB, HBCM #### [place] [address] #### CMP, CBC, GFR, ADIFF, TSH, ANEU, 066459 #### [place] [address] HBSABon 03-11-2024 Hep B Surf Ab 16.8 mIU/mL Normal >=10.0 [facility] ([place]) Comment on above: Result Comment: 0 to < 10.0 mIU/mL Nonreactive Patient is considered not to have protective immunity to HBV infection >/= 10.0 mIU/mL Reactive Patient is considered to have protective immunity to HBV infection. This assay is traceable to the World Health Organization (WHO) Hepatitis B Immunoglobulin 1st International Reference Preparation (1976). The accepted criteria for immunity to HBV is anti-HBs activity >/= 10.0 mIU/mL, as defined by the WHO International Reference Preparation. Performed By: #### H BSAG, HBSAB, HBCM #### [place] [address] #### CMP, CBC, GFR, ADIFF, TSH, ANEU, [id number] #### [place] [id number] HBSAGon 03-11-2024 Hep B Surf Ag Reactive Abnormal Non-Reactive [facility] ([place]) Comment on above: Performed By: #### H BSAG, HBSAB, HBCM #### [place] [address] #### CMP, CBC, GFR, ADIFF, TSH, ANEU, 998849 #### [place] [id number] TSHon 03-11-2024 TSH Qn 0.94 m[IU]/L Normal 0.36-3.74 [facility] ([place]) Comment on above: Performed By: #### H BSAG, HBSAB, HBCM #### [place] [address] #### CMP, CBC, GFR, ADIFF, TSH, ANEU, 517562 #### [address] [address] .Auto Diffon 08-07-2023 Basophil, Absolute 0.1 10 3/mcL Normal 0.0-0.2 [facility] ([place]) Comment on above: Performed By: #### H BSAG, HBSAB, HBCM #### [place] [address] #### CMP, CBC, GFR, ADIFF, TSH, ANEU, 814250 #### [address] [address] Basophils/100 WBC (Bld) 0.9 % Normal 0.0-2.5 [facility] ([place]) Comment on above: Performed By: #### H BSAG, HBSAB, HBCM #### [place] [address] #### CMP, CBC, GFR, ADIFF, TSH, ANEU, 233283 #### [address] [address] Eosinophil, Absolute 0.3 10 3/mcL Normal 0.0-0.4 [facility] ([place]) Comment on above: Performed By: #### H BSAG, HBSAB, HBCM #### [place] [address] #### CMP, CBC, GFR, ADIFF, TSH, ANEU, 101132 #### [address] [address] Eosinophils/100 WBC (Bld) 3.2 % Normal 0.0-7.0 [facility] ([place]) Comment on above: Performed By: #### H BSAG, HBSAB, HBCM #### [place] [address] #### CMP, CBC, GFR, ADIFF, TSH, ANEU, 615144 #### [address] [address] Lymphocyte, Absolute 2.9 10 3/mcL Normal 0.8-3.9 [facility] ([place] Comment on above: Performed By: #### H BSAG, HBSAB, HBCM #### [place] [address] #### CMP, CBC, GFR, ADIFF, TSH, ANEU, 355411 #### [address] [address] Lymphocytes/100 WBC (Bld) 30.8 % Normal 10.0-50.0 [facility] ([place]) Comment on above: Performed By: #### H BSAG, HBSAB, HBCM #### [place] [address] #### CMP, CBC, GFR, ADIFF, TSH, ANEU, 682535 #### [address] [address] Monocyte, Absolute 0.9 10 3/mcL Normal 0.2-1.0 [facility] ([place] Comment on above: Performed By: #### H BSAG, HBSAB, HBCM #### [place] [address] #### CMP, CBC, GFR, ADIFF, TSH, ANEU, 290041 #### [address] [address] Monocytes/100 WBC (Bld) 9.7 % Normal 1.7-13.0 [facility] ([place]) Comment on above: Performed By: #### H BSAG, HBSAB, HBCM #### [place] [address] #### CMP, CBC, GFR, ADIFF, TSH, ANEU, 909528 #### [address] [address] Neutrophils/100 WBC (Bld) 55.4 % Normal 37.0-80.0 [facility] ([place]) Comment on above: Performed By: #### H BSAG, HBSAB, HBCM #### [place] [address] #### CMP, CBC, GFR, ADIFF, TSH, ANEU, 580491 #### [address] [address] .GFRon 08-07-2023 GFR 78 ml/min/1.73sqm Normal [facility] ([place]) Comment on above: Result Comment: GFR Population mean for , Non- Americans Ages 20-29 = 116 mL/min/1.73 sq.m. Ages 30-39 = 107 mL/min/1.73 sq.m. Ages 40-49 = 99 mL/min/1.73 sq.m. Ages 50-59 = 93 mL/min/1.73 sq.m. Ages 60-69 = 85 mL/min/1.73 sq.m. Ages 70+ = 75 mL/min/1.73 sq.m. Chronic Kidney Disease: Less than 60 mL/min/1.73 square meters End Stage Renal Disease: Less than 15 mL/min/1.73 square meters Performed By: #### H BSAG, HBSAB, HBCM #### [place] [address] #### CMP, CBC, GFR, ADIFF, TSH, ANEU, 874788 #### [address] [address] GFR Non- 65 ml/min/1.73sqm Normal [facility] ([place]) Comment on above: Result Comment: GFR Population mean for , Non- Americans Ages 20-29 = 116 mL/min/1.73 sq.m. Ages 30-39 = 107 mL/min/1.73 sq.m. Ages 40-49 = 99 mL/min/1.73 sq.m. Ages 50-59 = 93 mL/min/1.73 sq.m. Ages 60-69 = 85 mL/min/1.73 sq.m. Ages 70+ = 75 mL/min/1.73 sq.m. Chronic Kidney Disease: Less than 60 mL/min/1.73 square meters End Stage Renal Disease: Less than 15 mL/min/1.73 square meters Performed By: #### H BSAG, HBSAB, HBCM #### [place] [id number] #### CMP, CBC, GFR, ADIFF, TSH, ANEU, 610897 #### [address] [address] .NEUABSon 08-07-2023 Neutrophil, Absolute 5.1 10 3/mcL Normal 2.9-6.2 [facility] ([place]) Comment on above: Performed By: #### H BSAG, HBSAB, HBCM #### [place] [address] #### CMP, CBC, GFR, ADIFF, TSH, ANEU, 926841 #### [address] [address] A1Con 08-07-2023 HbA1c (Bld) [Mass fraction] 6.0 % Normal 4.3-6.4 [facility] ([place]) Comment on above: Performed By: #### H BSAG, HBSAB, HBCM #### [place] [address] #### CMP, CBC, GFR, ADIFF, TSH, ANEU, 637156 #### [address] [address] CBCon 08-07-2023 Erythrocyte distribution width (RBC) [Ratio] 13.9 % Normal 11.5-14.5 [facility] ([place]) Comment on above: Performed By: #### H BSAG, HBSAB, HBCM #### [place] [address] #### CMP, CBC, GFR, ADIFF, TSH, ANEU, 231986 #### [address] [address] Hematocrit (Bld) [Volume fraction] 35.3 % Low 37.0-47.0 [facility] ([place]) Comment on above: Performed By: #### H BSAG, HBSAB, HBCM #### [place] [address] #### CMP, CBC, GFR, ADIFF, TSH, ANEU, 870452 #### [address] [address] Hgb 11.6 G/dL Low 12.0-16.0 [facility] ([place]) Comment on above: Performed By: #### H BSAG, HBSAB, HBCM #### [place] [address] #### CMP, CBC, GFR, ADIFF, TSH, ANEU, 301693 #### [address] [address] MCH (RBC) [Entitic mass] 25.2 pg Low 27.0-31.2 [facility] ([place]) Comment on above: Performed By: #### H BSAG, HBSAB, HBCM #### [place] [address] #### CMP, CBC, GFR, ADIFF, TSH, ANEU, 411351 #### [address] [address] MCHC 32.9 G/dL Low 33.0-37.0 [facility] ([place]) Comment on above: Performed By: #### H BSAG, HBSAB, HBCM #### [place] [address] #### CMP, CBC, GFR, ADIFF, TSH, ANEU, 676062 #### [address] [address] MCV (RBC) [Entitic vol] 76.6 fL Low 80.0-94.0 [facility] ([place]) Comment on above: Performed By: #### H BSAG, HBSAB, HBCM #### [place] [address] #### CMP, CBC, GFR, ADIFF, TSH, ANEU, 906706 #### [address] [address] Platelet 322 10 3/mcL Normal 130-400 [facility] ([place]) Comment on above: Performed By: #### H BSAG, HBSAB, HBCM #### [place] [address] #### CMP, CBC, GFR, ADIFF, TSH, ANEU, 405604 #### [address] [address] Platelet mean volume (Bld) [Entitic vol] 9.3 fL Normal 7.4-10.4 [facility] ([place]) Comment on above: Performed By: #### H BSAG, HBSAB, HBCM #### [place] [address] #### CMP, CBC, GFR, ADIFF, TSH, ANEU, 957643 #### [address] [address] RBC 4.61 10 6/mcL Normal 4.20-5.40 [facility] ([place]) Comment on above: Performed By: #### H BSAG, HBSAB, HBCM #### [place] [address] #### CMP, CBC, GFR, ADIFF, TSH, ANEU, 916250 #### [address] [address] WBC 9.3 10 3/mcL Normal 4.6-10.8 [facility] ([place]) Comment on above: Performed By: #### H BSAG, HBSAB, HBCM #### [place] [address] #### CMP, CBC, GFR, ADIFF, TSH, ANEU, 518172 #### [address] [address] CMPon 08-07-2023 Albumin Level 3.6 G/dL Normal 3.4-4.8 [facility] ([place]) Comment on above: Performed By: #### H BSAG, HBSAB, HBCM #### [place] [address] #### CMP, CBC, GFR, ADIFF, TSH, ANEU, 238697 #### [address] [address] Albumin/Globulin [Mass ratio] 0.8 {ratio} Low 1.1-2.5 [facility] ([place]) Comment on above: Performed By: #### H BSAG, HBSAB, HBCM #### [place] [address] #### CMP, CBC, GFR, ADIFF, TSH, ANEU, 544396 #### [address] [address] ALP [Catalytic activity/Vol] 95 U/L Normal 40-135 [facility] ([place]) Comment on above: Performed By: #### H BSAG, HBSAB, HBCM #### [place] [address] #### CMP, CBC, GFR, ADIFF, TSH, ANEU, 298405 #### [address] [address] ALT [Catalytic activity/Vol] 37 U/L Normal 14-59 [facility] ([place]) Comment on above: Performed By: #### H BSAG, HBSAB, HBCM #### [place] [address] #### CMP, CBC, GFR, ADIFF, TSH, ANEU, 370240 #### [address] [address] AST [Catalytic activity/Vol] 21 U/L Normal 10-40 [facility] ([place]) Comment on above: Performed By: #### H BSAG, HBSAB, HBCM #### [place] [address] #### CMP, CBC, GFR, ADIFF, TSH, ANEU, 950199 #### [address] [address] Bili Total 0.4 mg/dL Normal 0.2-1.0 [facility] ([place]) Comment on above: Result Comment: Use of this assay is not recommended for patients undergoing treatment with eltrombopag due to the potential for falsely elevated results. Performed By: #### H BSAG, HBSAB, HBCM #### [place] [address] #### CMP, CBC, GFR, ADIFF, TSH, ANEU, 273735 #### [address] [address] BUN/Creatinine Ratio 17 ratio Normal 7-27 [facility] ([place] Comment on above: Performed By: #### H BSAG, HBSAB, HBCM #### [place] [address] #### CMP, CBC, GFR, ADIFF, TSH, ANEU, 828704 #### [address] [address] Calcium [Mass/Vol] 9.2 mg/dL Normal 8.4-10.2 [facility] ([place]) Comment on above: Performed By: #### H BSAG, HBSAB, HBCM #### [place] [address] #### CMP, CBC, GFR, ADIFF, TSH, ANEU, 122345 #### [address] [address] Chloride [Moles/Vol] 106 mmol/L Normal 98-107 [facility] ([place] Comment on above: Performed By: #### H BSAG, HBSAB, HBCM #### [place] [address] #### CMP, CBC, GFR, ADIFF, TSH, ANEU, 846744 #### [address] [address] CO2 [Moles/Vol] 29 mmol/L Normal 23-31 [facility] ([place]) Comment on above: Performed By: #### H BSAG, HBSAB, HBCM #### [place] [address] #### CMP, CBC, GFR, ADIFF, TSH, ANEU, 140935 #### [address] [address] Creatinine [Mass/Vol] 0.88 mg/dL Normal 0.55-1.02 [facility] ([place]) Comment on above: Performed By: #### H BSAG, HBSAB, HBCM #### [place] [address] #### CMP, CBC, GFR, ADIFF, TSH, ANEU, 972849 #### [address] [address] Electrolyte Balance 7.0 mEq/L Normal 4.0-15.0 [facility] ([place] Comment on above: Performed By: #### H BSAG, HBSAB, HBCM #### [place] [address] #### CMP, CBC, GFR, ADIFF, TSH, ANEU, 731468 #### [address] [address] Globulin 4.5 G/dL Normal [facility] ([place]) Comment on above: Performed By: #### H BSAG, HBSAB, HBCM #### [place] [address] #### CMP, CBC, GFR, ADIFF, TSH, ANEU, 924765 #### [address] [address] Glucose [Mass/Vol] 104 mg/dL Normal 80-115 [facility] ([place]) Comment on above: Performed By: #### H BSAG, HBSAB, HBCM #### [place] [address] #### CMP, CBC, GFR, ADIFF, TSH, ANEU, 001492 #### [address] [address] Potassium [Moles/Vol] 4.4 mmol/L Normal 3.5-5.1 [facility] ([place]) Comment on above: Performed By: #### H BSAG, HBSAB, HBCM #### [place] [address] #### CMP, CBC, GFR, ADIFF, TSH, ANEU, 940152 #### [address] [address] Sodium [Moles/Vol] 142 mmol/L Normal 136-145 [facility] ([place] Comment on above: Performed By: #### H BSAG, HBSAB, HBCM #### [place] [address] #### CMP, CBC, GFR, ADIFF, TSH, ANEU, 900122 #### [address] [address] Total Protein 8.1 G/dL Normal 6.4-8.2 [facility] ([place]) Comment on above: Performed By: #### H BSAG, HBSAB, HBCM #### [address] [address] #### CMP, CBC, GFR, ADIFF, TSH, ANEU, 682639 #### [place] [address] [place], [place] [address] Urea nitrogen [Mass/Vol] 15 mg/dL Normal 7-18 [facility] ([place]) Comment on above: Performed By: #### H BSAG, HBSAB, HBCM #### [address] [address] #### CMP, CBC, GFR, ADIFF, TSH, ANEU, 997889 #### [address] [address] LABORATORYOrdered By: SYSTEM SYSTEM on 08-07-2023 25-hydroxyvitamin D3 [Mass/Vol] 21.4 ng/mL Invalid Interpretation Code AO ADM SS Comment on above: Interpretive Data: I nterpretive Values Based on Total 25(OH) Vitamin D: Deficient <20 ng/mL Insufficient 20 - <30 ng/mL Sufficient 30-100 ng/mL Albumin BCP dye [Mass/Vol] 3.6 G/dL Invalid Interpretation Code 3.4 - 4.8 G/dL AO ADM SS Albumin/Globulin [Mass ratio] 0.8 {ratio} Invalid Interpretation Code 1.1 - 2.5 ratio AO ADM SS ALP [Catalytic activity/Vol] 95 U/L Invalid Interpretation Code 40 - 135 U/L AO ADM SS ALT With P-5'-P [Catalytic activity/Vol] 37 U/L Invalid Interpretation Code 14 - 59 U/L AO ADM SS AST With P-5'-P [Catalytic activity/Vol] 21 U/L Invalid Interpretation Code 10 - 40 U/L AO ADM SS Basophil, Absolute 0.1 103/mcL Invalid Interpretation Code 0.0 - 0.2 10^3/mcL AO Workflow SS Basophils/100 WBC (Bld) 0.9 % Invalid Interpretation Code 0.0 - 2.5 % AO Workflow SS Bilirubin [Mass/Vol] 0.4 mg/dL Invalid Interpretation Code 0.2 - 1.0 mg/dL AO ADM SS Comment on above: Interpretive Data: U se of this assay is not recommended for patients undergoing treatment with eltrombopag due to the potential for falsely elevated results. Calcium [Mass/Vol] 9.2 mg/dL Invalid Interpretation Code 8.4 - 10.2 mg/dL AO ADM SS Chloride [Moles/Vol] 106 mmol/L Invalid Interpretation Code 98 - 107 mmol/L AO ADM SS CO2 [Moles/Vol] 29 mmol/L Invalid Interpretation Code 23 - 31 mmol/L AO ADM SS Creatinine [Mass/Vol] 0.88 mg/dL Invalid Interpretation Code 0.55 - 1.02 mg/dL AO ADM SS Electrolyte Balance 7.0 mEq/L Invalid Interpretation Code 4.0 - 15.0 mEq/L AO ADM SS Eosinophil, Absolute 0.3 103/mcL Invalid Interpretation Code 0.0 - 0.4 10^3/mcL AO Workflow SS Eosinophils/100 WBC (Bld) 3.2 % Invalid Interpretation Code 0.0 - 7.0 % AO Workflow SS Erythrocyte distribution width (RBC) [Ratio] 13.9 % Invalid Interpretation Code 11.5 - 14.5 % AO Workflow SS GFR/1.73 sq M.predicted among blacks MDRD (S/P/Bld) [Vol rate/Area] 78 ml/min/1.73sqm Invalid Interpretation Code AO Chemistry S Comment on above: Interpretive Data: GFR Population mean for , Non- Americans Ages 20-29 = 116 mL/min/1.73 sq.m. Ages 30-39 = 107 mL/min/1.73 sq.m. Ages 40-49 = 99 mL/min/1.73 sq.m. Ages 50-59 = 93 mL/min/1.73 sq.m. Ages 60-69 = 85 mL/min/1.73 sq.m. Ages 70+ = 75 mL/min/1.73 sq.m. Chronic Kidney Disease: Less than 60 mL/min/1.73 square meters End Stage Renal Disease: Less than 15 mL/min/1.73 square meters GFR/1.73 sq M.predicted among non-blacks MDRD (S/P/Bld) [Vol rate/Area] 65 ml/min/1.73sqm Invalid Interpretation Code AO Chemistry S Comment on above: Interpretive Data: GFR Population mean for , Non- Americans Ages 20-29 = 116 mL/min/1.73 sq.m. Ages 30-39 = 107 mL/min/1.73 sq.m. Ages 40-49 = 99 mL/min/1.73 sq.m. Ages 50-59 = 93 mL/min/1.73 sq.m. Ages 60-69 = 85 mL/min/1.73 sq.m. Ages 70+ = 75 mL/min/1.73 sq.m. Chronic Kidney Disease: Less than 60 mL/min/1.73 square meters End Stage Renal Disease: Less than 15 mL/min/1.73 square meters Globulin 4.5 G/dL Invalid Interpretation Code AO ADM SS Glucose [Mass/Vol] 104 mg/dL Invalid Interpretation Code 80 - 115 mg/dL AO ADM SS HbA1c (Bld) [Mass fraction] 6.0 % Invalid Interpretation Code 4.3 - 6.4 % AO ADM SS Hematocrit (Bld) [Volume fraction] 35.3 % Invalid Interpretation Code 37.0 - 47.0 % AO Workflow SS Hemoglobin (Bld) [Mass/Vol] 11.6 G/dL Invalid Interpretation Code 12.0 - 16.0 G/dL AO Workflow SS Lymphocyte, Absolute 2.9 103/mcL Invalid Interpretation Code 0.8 - 3.9 10^3/mcL AO Workflow SS Lymphocytes/100 WBC (Bld) 30.8 % Invalid Interpretation Code 10.0 - 50.0 % AO Workflow SS MCH (RBC) [Entitic mass] 25.2 pg Invalid Interpretation Code 27.0 - 31.2 pg AO Workflow SS MCHC 32.9 G/dL Invalid Interpretation Code 33.0 - 37.0 G/dL AO Workflow SS MCV (RBC) [Entitic vol] 76.6 fL Invalid Interpretation Code 80.0 - 94.0 fL AO Workflow SS Monocyte, Absolute 0.9 103/mcL Invalid Interpretation Code 0.2 - 1.0 10^3/mcL AO Workflow SS Monocytes/100 WBC (Bld) 9.7 % Invalid Interpretation Code 1.7 - 13.0 % AO Workflow SS Neutrophil, Absolute 5.1 103/mcL Invalid Interpretation Code 2.9 - 6.2 10^3/mcL AO Workflow SS Neutrophils/100 WBC (Bld) 55.4 % Invalid Interpretation Code 37.0 - 80.0 % AO Workflow SS Platelet mean volume (Bld) [Entitic vol] 9.3 fL Invalid Interpretation Code 7.4 - 10.4 fL AO Workflow SS Platelets (Bld) [#/Vol] 322 103/mcL Invalid Interpretation Code 130 - 400 10^3/mcL AO Workflow SS Potassium [Moles/Vol] 4.4 mmol/L Invalid Interpretation Code 3.5 - 5.1 mmol/L AO ADM SS Protein [Mass/Vol] 8.1 G/dL Invalid Interpretation Code 6.4 - 8.2 G/dL AO ADM SS RBC (Bld) [#/Vol] 4.61 106/mcL Invalid Interpretation Code 4.20 - 5.40 10^6/mcL AO Workflow SS Sodium [Moles/Vol] 142 mmol/L Invalid Interpretation Code 136 - 145 mmol/L AO ADM SS TSH Qn 0.90 m[IU]/L Invalid Interpretation Code 0.36 - 3.74 mcIU/mL AO ADM SS Urea nitrogen [Mass/Vol] 15 mg/dL Invalid Interpretation Code 7 - 18 mg/dL AO ADM SS Urea nitrogen/Creatinine [Mass ratio] 17 ratio Invalid Interpretation Code 7 - 27 ratio AO ADM SS WBC (Bld) [#/Vol] 9.3 103/mcL Invalid Interpretation Code 4.6 - 10.8 10^3/mcL AO Workflow SS LABORATORYOrdered By: Anali Barnett on 08-07-2023 Cholesterol [Mass/Vol] 217 mg/dL Invalid Interpretation Code 0 - 200 mg/dL AO ADM SS Comment on above: Interpretive Data: C holesterol Reference Interval: Less than 200 Desirable 200-239 Borderline high risk 240 and above High risk Cholesterol in HDL [Mass/Vol] 50 mg/dL Invalid Interpretation Code 40 - 60 mg/dL AO ADM SS Cholesterol in LDL [Mass/Vol] 120 mg/dL Invalid Interpretation Code 0 - 130 mg/dL AO ADM SS Triglyceride [Mass/Vol] 237 mg/dL Invalid Interpretation Code 0 - 150 mg/dL AO ADM SS Comment on above: Interpretive Data: T riglyceride Reference Interval: Less than 150 Normal 150-199 Borderline high risk 200-499 High risk 500 or higher Very high risk LIPIDon 08-07-2023 Cholesterol [Mass/Vol] 217 mg/dL High 0-200 [facility] ([place]) Comment on above: Result Comment: Chol esterol Reference Interval: Less than 200 Desirable 200-239 Borderline high risk 240 and above High risk Performed By: #### H BSAG, HBSAB, HBCM #### [address] [address] #### CMP, CBC, GFR, ADIFF, TSH, ANEU, [id number] #### [address] [address] Cholesterol in HDL [Mass/Vol] 50 mg/dL Normal 40-60 [facility] ([place]) Comment on above: Performed By: #### H BSAG, HBSAB, HBCM #### [place] [address] #### CMP, CBC, GFR, ADIFF, TSH, ANEU, 284764 #### [address] [address] Cholesterol in LDL [Mass/Vol] 120 mg/dL Normal 0-130 [facility] ([place]) Comment on above: Performed By: #### H BSAG, HBSAB, HBCM #### [place] [address] #### CMP, CBC, GFR, ADIFF, TSH, ANEU, 870622 #### [address] [address] Triglyceride [Mass/Vol] 237 mg/dL High 0-150 [facility] ([place] Comment on above: Result Comment: Trig lyceride Reference Interval: Less than 150 Normal 150-199 Borderline high risk 200-499 High risk 500 or higher Very high risk Performed By: #### H BSAG, HBSAB, HBCM #### [place] [address] #### CMP, CBC, GFR, ADIFF, TSH, ANEU, 214042 #### [address] [address] TSHon 08-07-2023 TSH Qn 0.90 m[IU]/L Normal 0.36-3.74 [facility] ([place]) Comment on above: Performed By: #### H BSAG, HBSAB, HBCM #### [place] [address] #### CMP, CBC, GFR, ADIFF, TSH, ANEU, 251546 #### [address] [address] VIDHon 08-07-2023 Vit. D 25-Hydroxy 21.4 ng/mL Normal [facility] ([place]) Comment on above: Result Comment: Inte rpretive Values Based on Total 25(OH) Vitamin D: Deficient <20 ng/mL Insufficient 20 - <30 ng/mL Sufficient 30-100 ng/mL Performed By: #### H BSAG, HBSAB, HBCM #### [place] [address] #### CMP, CBC, GFR, ADIFF, TSH, ANEU, 070924 #### [address] [address] LABORATORYOrdered By: SYSTEM SYSTEM on 12-16-2022 Free T3 [Mass/Vol] 2.67 pg/mL Invalid Interpretation Code 2.30 - 4.00 pg/mL AO ADM SS T4 [Mass/Vol] 9.7 ug/dL Invalid Interpretation Code 4.5 - 10.9 mcg/dL AH ADM SS Thyroglobulin Ab IA Qn 19 unit/mL Invalid Interpretation Code 15 - 60 unit/mL AH ADM SS TPO Ab IA Qn 28 unit/mL Invalid Interpretation Code 0 - 60 unit/mL AH ADM SS TSH Qn 0.63 m[IU]/L Invalid Interpretation Code 0.36 - 3.74 mcIU/mL AO ADM SS LABORATORYOrdered By: SYSTEM SYSTEM on 12-08-2022 Albumin BCP dye [Mass/Vol] 3.6 G/dL Invalid Interpretation Code 3.4 - 4.8 G/dL AO ADM SS Albumin/Globulin [Mass ratio] 0.7 {ratio} Invalid Interpretation Code 1.1 - 2.5 ratio AO ADM SS ALP [Catalytic activity/Vol] 92 U/L Invalid Interpretation Code 40 - 135 U/L AO ADM SS ALT With P-5'-P [Catalytic activity/Vol] 110 U/L Invalid Interpretation Code 14 - 59 U/L AO ADM SS AST With P-5'-P [Catalytic activity/Vol] 66 U/L Invalid Interpretation Code 10 - 40 U/L AO ADM SS Bilirubin [Mass/Vol] 0.6 mg/dL Invalid Interpretation Code 0.2 - 1.0 mg/dL AO ADM SS Calcium [Mass/Vol] 9.1 mg/dL Invalid Interpretation Code 8.4 - 10.2 mg/dL AO ADM SS Chloride [Moles/Vol] 106 mmol/L Invalid Interpretation Code 98 - 107 mmol/L AO ADM SS CO2 [Moles/Vol] 27 mmol/L Invalid Interpretation Code 23 - 31 mmol/L AO ADM SS Creatinine [Mass/Vol] 0.79 mg/dL Invalid Interpretation Code 0.55 - 1.02 mg/dL AO ADM SS Electrolyte Balance 9.0 mEq/L Invalid Interpretation Code 4.0 - 15.0 mEq/L AO ADM SS GFR 89 ml/min/1.73sqm Invalid Interpretation Code AO Chemistry S GFR Non- 74 ml/min/1.73sqm Invalid Interpretation Code AO Chemistry S Globulin 4.9 G/dL Invalid Interpretation Code AO ADM SS Glucose [Mass/Vol] 106 mg/dL Invalid Interpretation Code 80 - 115 mg/dL AO ADM SS HBV surface Ab Qn (S) 6.3 mIU/mL Invalid Interpretation Code >=10.0mIU/mL AH ADM SS HBV surface Ag IA Ql Reactive *ABN* (12/08/22 8:33 AM) Invalid Interpretation Code Non-Reactive AH ADM SS Potassium [Moles/Vol] 3.8 mmol/L Invalid Interpretation Code 3.5 - 5.1 mmol/L AO ADM SS Protein [Mass/Vol] 8.5 G/dL Invalid Interpretation Code 6.4 - 8.2 G/dL AO ADM SS Sodium [Moles/Vol] 142 mmol/L Invalid Interpretation Code 136 - 145 mmol/L AO ADM SS TSH Qn 0.32 m[IU]/L Invalid Interpretation Code 0.36 - 3.74 mcIU/mL AO ADM SS Urea nitrogen [Mass/Vol] 17 mg/dL Invalid Interpretation Code 7 - 18 mg/dL AO ADM SS Urea nitrogen/Creatinine [Mass ratio] 22 ratio Invalid Interpretation Code 7 - 27 ratio AO ADM SS LABORATORYOrdered By: Anali Barnett on 12-08-2022 Basophil, Absolute 0.1 103/mcL Invalid Interpretation Code 0.0 - 0.2 10^3/mcL AO Workflow SS Basophils/100 WBC (Bld) 0.8 % Invalid Interpretation Code 0.0 - 2.5 % AO Workflow SS Cholesterol [Mass/Vol] 232 mg/dL Invalid Interpretation Code 0 - 200 mg/dL AO ADM SS Cholesterol in HDL [Mass/Vol] 61 mg/dL Invalid Interpretation Code 40 - 60 mg/dL AO ADM SS Cholesterol in LDL [Mass/Vol] 153 mg/dL Invalid Interpretation Code 0 - 130 mg/dL AO ADM SS Eosinophil, Absolute 0.1 103/mcL Invalid Interpretation Code 0.0 - 0.4 10^3/mcL AO Workflow SS Eosinophils/100 WBC (Bld) 0.8 % Invalid Interpretation Code 0.0 - 7.0 % AO Workflow SS Erythrocyte distribution width (RBC) [Ratio] 14.0 % Invalid Interpretation Code 11.5 - 14.5 % AO Workflow SS Hematocrit (Bld) [Volume fraction] 36.7 % Invalid Interpretation Code 37.0 - 47.0 % AO Workflow SS Hemoglobin (Bld) [Mass/Vol] 12.1 G/dL Invalid Interpretation Code 12.0 - 16.0 G/dL AO Workflow SS Lymphocyte, Absolute 2.7 103/mcL Invalid Interpretation Code 0.8 - 3.9 10^3/mcL AO Workflow SS Lymphocytes/100 WBC (Bld) 28.4 % Invalid Interpretation Code 10.0 - 50.0 % AO Workflow SS MCH (RBC) [Entitic mass] 25.4 pg Invalid Interpretation Code 27.0 - 31.2 pg AO Workflow SS MCHC 33.0 G/dL Invalid Interpretation Code 33.0 - 37.0 G/dL AO Workflow SS MCV (RBC) [Entitic vol] 76.8 fL Invalid Interpretation Code 80.0 - 94.0 fL AO Workflow SS Monocyte, Absolute 0.8 103/mcL Invalid Interpretation Code 0.2 - 1.0 10^3/mcL AO Workflow SS Monocytes/100 WBC (Bld) 8.9 % Invalid Interpretation Code 1.7 - 13.0 % AO Workflow SS Neutrophil, Absolute 5.7 103/mcL Invalid Interpretation Code 2.9 - 6.2 10^3/mcL AO Workflow SS Neutrophils/100 WBC (Bld) 61.1 % Invalid Interpretation Code 37.0 - 80.0 % AO Workflow SS Platelet mean volume (Bld) [Entitic vol] 10.0 fL Invalid Interpretation Code 7.4 - 10.4 fL AO Workflow SS Platelets (Bld) [#/Vol] 238 103/mcL Invalid Interpretation Code 130 - 400 10^3/mcL AO Workflow SS RBC (Bld) [#/Vol] 4.78 106/mcL Invalid Interpretation Code 4.20 - 5.40 10^6/mcL AO Workflow SS Triglyceride [Mass/Vol] 90 mg/dL Invalid Interpretation Code 0 - 150 mg/dL AO ADM SS WBC (Bld) [#/Vol] 9.4 103/mcL Invalid Interpretation Code 4.6 - 10.8 10^3/mcL AO Workflow SS LABORATORYOrdered By: Zac Sorensen on 12-08-2022 HAV IgM IA Ql Non-Reactive (12/08/22 8:33 AM) Invalid Interpretation Code Non-Reactive AH ADM SS HAV IgM IA Ql No serological evidence of a current Hepatitis A infection. Invalid Interpretation Code Chemistry S HBV core IgM IA Ql Non-Reactive (12/08/22 8:33 AM) Invalid Interpretation Code Non-Reactive AH ADM SS HBV core IgM IA Ql Samples with a value < 0.80 Index are considered nonreactive (negative) for IgM antibodies to hepatitis B core antigen. Invalid Interpretation Code Chemistry S HCV Ab IA Ql Non-Reactive (12/08/22 8:33 AM) Invalid Interpretation Code Non-Reactive AH ADM SS HCV Ab IA Ql Nonreactive: Samples with a value < 0.80 are considered nonreactive (negative) for antibodies to HCV.A negative test result does not exclude the possibility of exposure to or infection with HCV. HCV antibodies may be undetectable in some stages of the infection and in some clinical conditions. Invalid Interpretation Code Chemistry S LABORATORYOrdered By: Jag Sawyer on 05-30-2022 Albumin BCP dye [Mass/Vol] 3.8 G/dL Invalid Interpretation Code 3.4 - 4.8 G/dL AO ADM SS Albumin/Globulin [Mass ratio] 0.9 {ratio} Invalid Interpretation Code 1.1 - 2.5 ratio AO ADM SS ALP [Catalytic activity/Vol] 84 U/L Invalid Interpretation Code 40 - 135 U/L AO ADM SS ALT With P-5'-P [Catalytic activity/Vol] 71 U/L Invalid Interpretation Code 14 - 59 U/L AO ADM SS AST With P-5'-P [Catalytic activity/Vol] 44 U/L Invalid Interpretation Code 10 - 40 U/L AO ADM SS Bilirubin [Mass/Vol] 0.3 mg/dL Invalid Interpretation Code 0.2 - 1.0 mg/dL AO ADM SS Calcium [Mass/Vol] 9.0 mg/dL Invalid Interpretation Code 8.4 - 10.2 mg/dL AO ADM SS Chloride [Moles/Vol] 106 mmol/L Invalid Interpretation Code 98 - 107 mmol/L AO ADM SS Cholesterol [Mass/Vol] 226 mg/dL Invalid Interpretation Code 0 - 200 mg/dL AO ADM SS Cholesterol in HDL [Mass/Vol] 71 mg/dL Invalid Interpretation Code 40 - 60 mg/dL AO ADM SS Cholesterol in LDL [Mass/Vol] 143 mg/dL Invalid Interpretation Code 0 - 130 mg/dL AO ADM SS CO2 [Moles/Vol] 28 mmol/L Invalid Interpretation Code 23 - 31 mmol/L AO ADM SS Creatinine [Mass/Vol] 0.86 mg/dL Invalid Interpretation Code 0.55 - 1.02 mg/dL AO ADM SS Electrolyte Balance 7.0 mEq/L Invalid Interpretation Code 4.0 - 15.0 mEq/L AO ADM SS Globulin 4.4 G/dL Invalid Interpretation Code AO ADM SS Glucose [Mass/Vol] 107 mg/dL Invalid Interpretation Code 80 - 115 mg/dL AO ADM SS Potassium [Moles/Vol] 4.0 mmol/L Invalid Interpretation Code 3.5 - 5.1 mmol/L AO ADM SS Protein [Mass/Vol] 8.2 G/dL Invalid Interpretation Code 6.4 - 8.2 G/dL AO ADM SS Sodium [Moles/Vol] 141 mmol/L Invalid Interpretation Code 136 - 145 mmol/L AO ADM SS Triglyceride [Mass/Vol] 59 mg/dL Invalid Interpretation Code 0 - 150 mg/dL AO ADM SS TSH Qn 0.35 m[IU]/L Invalid Interpretation Code 0.36 - 3.74 mcIU/mL AO ADM SS Urea nitrogen [Mass/Vol] 17 mg/dL Invalid Interpretation Code 7 - 18 mg/dL AO ADM SS Urea nitrogen/Creatinine [Mass ratio] 20 ratio Invalid Interpretation Code 7 - 27 ratio AO ADM SS LABORATORYOrdered By: Anali Barnett on 05-30-2022 Basophil, Absolute 0.0 103/mcL Invalid Interpretation Code 0.0 - 0.2 10^3/mcL AO Workflow SS Basophils/100 WBC (Bld) 0.3 % Invalid Interpretation Code 0.0 - 2.5 % AO Workflow SS Eosinophil, Absolute 0.2 103/mcL Invalid Interpretation Code 0.0 - 0.4 10^3/mcL AO Workflow SS Eosinophils/100 WBC (Bld) 1.8 % Invalid Interpretation Code 0.0 - 7.0 % AO Workflow SS Erythrocyte distribution width (RBC) [Ratio] 13.6 % Invalid Interpretation Code 11.5 - 14.5 % AO Workflow SS Hematocrit (Bld) [Volume fraction] 35.6 % Invalid Interpretation Code 37.0 - 47.0 % AO Workflow SS Hemoglobin (Bld) [Mass/Vol] 11.8 G/dL Invalid Interpretation Code 12.0 - 16.0 G/dL AO Workflow SS Lymphocyte, Absolute 4.1 103/mcL Invalid Interpretation Code 0.8 - 3.9 10^3/mcL AO Workflow SS Lymphocytes/100 WBC (Bld) 41.1 % Invalid Interpretation Code 10.0 - 50.0 % AO Workflow SS MCH (RBC) [Entitic mass] 25.6 pg Invalid Interpretation Code 27.0 - 31.2 pg AO Workflow SS MCHC 33.1 G/dL Invalid Interpretation Code 33.0 - 37.0 G/dL AO Workflow SS MCV (RBC) [Entitic vol] 77.3 fL Invalid Interpretation Code 80.0 - 94.0 fL AO Workflow SS Monocyte, Absolute 0.6 103/mcL Invalid Interpretation Code 0.2 - 1.0 10^3/mcL AO Workflow SS Monocytes/100 WBC (Bld) 5.7 % Invalid Interpretation Code 1.7 - 13.0 % AO Workflow SS Neutrophil, Absolute 5.1 103/mcL Invalid Interpretation Code 2.9 - 6.2 10^3/mcL AO Workflow SS Neutrophils/100 WBC (Bld) 51.1 % Invalid Interpretation Code 37.0 - 80.0 % AO Workflow SS Platelet mean volume (Bld) [Entitic vol] 9.3 fL Invalid Interpretation Code 7.4 - 10.4 fL AO Workflow SS Platelets (Bld) [#/Vol] 277 103/mcL Invalid Interpretation Code 130 - 400 10^3/mcL AO Workflow SS RBC (Bld) [#/Vol] 4.61 106/mcL Invalid Interpretation Code 4.20 - 5.40 10^6/mcL AO Workflow SS WBC 10.0 103/mcL Invalid Interpretation Code 4.6 - 10.8 10^3/mcL AO Workflow SS LABORATORYOrdered By: SYSTEM SYSTEM on 05-30-2022 GFR 81 ml/min/1.73sqm Invalid Interpretation Code AO Chemistry S GFR Non- 67 ml/min/1.73sqm Invalid Interpretation Code AO Chemistry S Monocyte distribution width Auto (Bld) [Entitic vol] Not Performed 1 *NA* (05/30/22 3:18 PM) Invalid Interpretation Code 0.00 - 20.00 AO Hematology S Comment on above: Result Comment: MDW testing performed only on adult ER patients between the ages of 18-89 years. CNOVon 10-08-2021 CNOV Office Visit ([facility] ) JESSIKA PAPPAS ([id number]) 1960 F Date Time Provider Department 10/08/21 9:00 AM WILLIAM PETERSON During your visit today, we recorded the following information about you: Pulse Blood pressure Weight Height 70/minute 140/82 64 kg 1.524 m William Peterson MD 10/08/2021 9:24 AM Signed CHIEF COMPLAINT: Patient presents with: Recheck: Hepatitis B HPI Jessika Pappas is a 61 year old female here today for Recheck (Hepatitis B ) She was referred for h/o-- chronic Hep B, initially diagnosed 10 years ago. Her ALT were mildly elevated and had low viral loads. 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 She was initially started on Entecavir in 2011 and she took the medication for a year and stopped because she says her doctor in [place] told her that her virus load is low and she does not need it. We repeated her labs- her HBeAg is negative and HBV DNA levels are 1560 international unit(s) / ml. Her LFT's are normal but liver US show cirrhosis. Current Outpatient Medications Medication Sig - amLODIPine (NORVASC) 10 mg tablet - halobetasol propionate (ULTRAVATE) 0.05 % ointment - Hydrochlorothiazide 12.5 mg capsule - KLOR-CON M20 20 mEq tablet - amLODIPine (NORVASC) 5 mg tablet (Patient not taking: Reported on 10/08/2021 ) - methocarbamol (ROBAXIN) 750 mg tablet (Patient not taking: Reported on 10/08/2021 ) No current facility-administered medications for this visit. ALLERGIES No Known Allergies Social History Tobacco Use - Smoking status: Never Smoker - Smokeless tobacco: Never Used Vaping Use - Vaping Use: Never used Substance Use Topics - Alcohol use: Not Currently - Drug use: No PAST MEDICAL HISTORY Diagnosis Date - Hepatitis B - Hypertension PAST SURGICAL HISTORY Procedure Laterality Date - DELIVERY ONLY - COLONOSCOPY GEN ANES 04/07/2012 - PAST SURGICAL HISTORY OF left wrist FAMILY HISTORY Problem Relation Age of Onset - Diabetes Father recent onset - Prostate Cancer Father - Colon Cancer No Family History REVIEW OF SYSTEMS Review of Systems All other systems reviewed and are negative. I have confirmed and edited as necessary, the PFSH and ROS obtained by others. PHYSICAL EXAM BP 140/82 Pulse 70 Ht 5' 0 (1.52m) Wt 141 lb (64.0kg) BMI 27.54 kg/(m2). Physical Exam General appearance: Well appearing, alert, in no acute distress, well-hydrated, well nourished. Skin: Skin color, texture, turgor normal Head: Normocephalic, no masses, lesions, tenderness or abnormalities Eyes: Anicteric sclera. Pupils are equally round. Oropharynx: Lips, mucosa, and tongue normal, teeth and gums normal, oropharynx normal Neck: Supple, no adenopathy; thyroid symmetric, normal size, no bruits Lungs: Lungs clear to auscultation. No wheezing, rhonchi, rales. Heart: RRR without murmur, gallop, or rubs. No ectopy Abdomen: Normal abdominal exam, Abdomen soft, non-tender. Bowel sounds normal. No masses, organomegaly Extremities: No deformities, edema, skin discoloration, clubbing or cyanosis. Good capillary refill. ASSESSMENT: No diagnosis found. 61/F who is in our clinic with chronic Hepatitis B with biopsy showing-Chronic hepatitis with mild activity and portal fibrous expansion. She has been on Entecavir in past which was later discontinued. Her latest HBV DNA is 1560 international unit(s) / ml and HBeAg is negative but she has cirrhotic liver on US. In view of having compensated liver cirrhosis with low HBV DNA levels, antiviral therapy is indicated. PLAN: No orders found for this visit on 10/08/21. No follow-ups on file. We will start her on Entecavir. Repeat labs in 3 months. RTC - 4 months William Peterson MD DATE: 10/08/21 TIME: 8:44 AM Referring Provider: WILLIAM PETERSON [[id number]] Allergies As of Date: 10/08/2021 (No Known Allergies) Date Reviewed: 10/08/2021 Reviewed by: Gisela Lee Ma - Fully Assessed Reason for Visit: Recheck [92] Cmt: Hepatitis B Primary Visit Diagnosis:Chronic viral hepatitis B without delta agent and without coma (HCC) [B18.1] Order(s):entecavir (BARACLUDE) 0.5 mg tabletTake 1 tablet by mouth once daily.Disp: 30 tabletRfl: 4 HEP B VIRAL DNA MIGUEL [[id number]] Order #: [id number] FUTURE Prescriptions as of 10/08/2021 - amLODIPine (NORVASC) 10 mg tablet - amLODIPine (NORVASC) 5 mg tablet - halobetasol propionate (ULTRAVATE) 0.05 % ointment - methocarbamol (ROBAXIN) 750 mg tablet - entecavir (BARACLUDE) 0.5 mg tablet Take 1 tablet by mouth once daily. - Hydrochlorothiazide 12.5 mg capsule - KLOR-CON M20 20 mEq tablet Problem List As Of Date 10/08/2021 Noted Resolved Hepatitis B [B19.10] 04/23/2012 Prescriptions ordered this encounter Disp Refills Start End ENTECAV (more content not included)... Normal [facility] LABORATORYOrdered By: Jag Sawyer on 09-19-2021 Albumin BCP dye [Mass/Vol] 3.9 G/dL Invalid Interpretation Code 3.4 - 4.8 G/dL AO ADM SS Albumin/Globulin [Mass ratio] 0.8 {ratio} Invalid Interpretation Code 1.1 - 2.5 ratio AO ADM SS ALP [Catalytic activity/Vol] 73 U/L Invalid Interpretation Code 40 - 135 U/L AO ADM SS ALT With P-5'-P [Catalytic activity/Vol] 43 U/L Invalid Interpretation Code 14 - 59 U/L AO ADM SS AST With P-5'-P [Catalytic activity/Vol] 27 U/L Invalid Interpretation Code 10 - 40 U/L AO ADM SS Basophil, Absolute 0.10 103/mcL Invalid Interpretation Code 0.00 - 0.19 10^3/mcL AO Auto Heme SS Basophils/100 WBC (Bld) 1.2 % Invalid Interpretation Code 0.0 - 2.5 % AO Auto Heme SS Bilirubin [Mass/Vol] 0.5 mg/dL Invalid Interpretation Code 0.2 - 1.0 mg/dL AO ADM SS Calcium [Mass/Vol] 9.2 mg/dL Invalid Interpretation Code 8.4 - 10.2 mg/dL AO ADM SS Chloride [Moles/Vol] 104 mmol/L Invalid Interpretation Code 98 - 107 mmol/L AO ADM SS CO2 [Moles/Vol] 26 mmol/L Invalid Interpretation Code 23 - 31 mmol/L AO ADM SS Creatinine [Mass/Vol] 0.94 mg/dL Invalid Interpretation Code 0.55 - 1.02 mg/dL AO ADM SS Electrolyte Balance 10.0 mEq/L Invalid Interpretation Code AO ADM SS Eosinophil, Absolute 0.10 103/mcL Invalid Interpretation Code 0.00 - 0.40 10^3/mcL AO Auto Heme SS Eosinophils/100 WBC (Bld) 1.9 % Invalid Interpretation Code 0.0 - 7.0 % AO Auto Heme SS Erythrocyte distribution width (RBC) [Ratio] 13.7 % Invalid Interpretation Code 11.5 - 14.5 % AO Auto Heme SS Free T3 [Mass/Vol] 2.43 pg/mL Invalid Interpretation Code 2.30 - 4.00 pg/mL AO ADM SS Free T4 [Mass/Vol] 1.54 ng/dL Invalid Interpretation Code 0.76 - 1.46 ng/dL AO ADM SS Globulin 4.8 G/dL Invalid Interpretation Code AO ADM SS Glucose [Mass/Vol] 102 mg/dL Invalid Interpretation Code 80 - 115 mg/dL AO ADM SS Hematocrit (Bld) [Volume fraction] 35.8 % Invalid Interpretation Code 37.0 - 47.0 % AO Auto Heme SS Hemoglobin (Bld) [Mass/Vol] 11.9 G/dL Invalid Interpretation Code 12.0 - 16.0 G/dL AO Auto Heme SS Lymphocyte, Absolute 3.00 103/mcL Invalid Interpretation Code 0.77 - 3.85 10^3/mcL AO Auto Heme SS Lymphocytes/100 WBC (Bld) 39.0 % Invalid Interpretation Code 10.0 - 50.0 % AO Auto Heme SS MCH (RBC) [Entitic mass] 25.1 pg Invalid Interpretation Code 27.0 - 31.2 pg AO Auto Heme SS MCHC (RBC) [Mass/Vol] 33.2 G/dL Invalid Interpretation Code 33.0 - 37.0 G/dL AO Auto Heme SS MCV (RBC) [Entitic vol] 75.8 fL Invalid Interpretation Code 80.0 - 94.0 fL AO Auto Heme SS Monocyte, Absolute 0.70 103/mcL Invalid Interpretation Code 0.15 - 1.00 10^3/mcL AO Auto Heme SS Monocytes/100 WBC (Bld) 8.7 % Invalid Interpretation Code 1.7 - 13.0 % AO Auto Heme SS Neutrophil, Absolute 3.80 103/mcL Invalid Interpretation Code 2.85 - 6.16 10^3/mcL AO Auto Heme SS Neutrophils/100 WBC (Bld) 49.2 % Invalid Interpretation Code 37.0 - 80.0 % AO Auto Heme SS Platelet mean volume (Bld) [Entitic vol] 9.9 fL Invalid Interpretation Code 7.4 - 10.4 fL AO Auto Heme SS Platelets (Bld) [#/Vol] 291 103/mcL Invalid Interpretation Code 130 - 400 10^3/mcL AO Auto Heme SS Potassium [Moles/Vol] 5.0 mmol/L Invalid Interpretation Code 3.5 - 5.1 mmol/L AO ADM SS Protein [Mass/Vol] 8.7 G/dL Invalid Interpretation Code 6.4 - 8.2 G/dL AO ADM SS RBC (Bld) [#/Vol] 4.73 106/mcL Invalid Interpretation Code 4.20 - 5.40 10^6/mcL AO Auto Heme SS Sodium [Moles/Vol] 140 mmol/L Invalid Interpretation Code 136 - 145 mmol/L AO ADM SS TSH Qn 0.82 m[IU]/L Invalid Interpretation Code 0.36 - 3.74 mcIU/mL AO ADM SS Urea nitrogen [Mass/Vol] 14 mg/dL Invalid Interpretation Code 7 - 18 mg/dL AO ADM SS Urea nitrogen/Creatinine [Mass ratio] 15 ratio Invalid Interpretation Code 7 - 27 ratio AO ADM SS WBC (Bld) [#/Vol] 7.70 103/mcL Invalid Interpretation Code 4.60 - 10.80 10^3/mcL AO Auto Heme SS LABORATORYOrdered By: SYSTEM SYSTEM on 09-19-2021 GFR 73 ml/min/1.73sqm Invalid Interpretation Code AO Chemistry S GFR Non- 60 ml/min/1.73sqm Invalid Interpretation Code AO Chemistry S AFPon 08-08-2021 AFP <3.0 Normal <11.0 [facility] Comment on above: Result Comment: AFP levels <11 ng/ml can be found in a variety of conditions, Hepatocellular Carcinoma and Non-seminomatous testicular cancer among others. Correlation with clinical picture and other test results including histopathology and radiology, where applicable, is recommended. Result rechecked. Performed By: #### A FP, HBEAG, HBSAG, HBVDNU #### [facility] [address] [address] Comp Metabolic Panelon 08-08 Albumin [Mass/Vol] 4.3 g/dL Normal 3.9-4.9 [facility] ALP [Catalytic activity/Vol] 83 U/L Normal 34-123 [facility] ALT [Catalytic activity/Vol] 33 U/L Normal 7-38 [facility] Anion gap [Moles/Vol] 10 mmol/L Normal 9-18 [facility] AST [Catalytic activity/Vol] 29 U/L Normal 13-35 [facility] Bilirubin [Mass/Vol] 0.4 mg/dL Normal 0.2-1.3 [facility] Calcium [Mass/Vol] 9.6 mg/dL Normal 8.5-10.2 [facility] Chloride [Moles/Vol] 102 mmol/L Normal 97-105 [facility] CO2 [Moles/Vol] 27 mmol/L Normal 22-30 [facility] Creatinine [Mass/Vol] 0.79 mg/dL Normal 0.58-0.96 [facility] eGFR- Amer. >60 Normal [facility] eGFR-All Other Races >60 Normal [facility] Comment on above: Result Comment: eGFR (Estimated GFR) Units of measure: mL/min/1.73 meters squared eGFR is derived from the reexpressed MDRD Study equation using the following parameters: serum creatinine, age, gender and race. The creatinine assay has been calibrated to be traceable to IDMS. An eGFR <60 mL/min/1.73m2 for >3 months is consistent with chronic kidney disease. Refer to KDOQI guidelines for clinical interpretation. In patients with unstable renal function, e.g. those with acute kidney injury, the eGFR may not accurately reflect actual GFR. Glucose [Mass/Vol] 97 mg/dL Normal 74-99 [facility] Comment on above: Result Comment: The [place] Diabetes Association (ADA) provides guidance for cutoff values for fasting glucose and random glucose. The ADA defines fasting as no caloric intake for at least 8 hours. Fasting plasma glucose results between 100 to 125 mg/dL indicate increased risk for diabetes (prediabetes). Fasting plasma glucose results greater than or equal to 126 mg/dL meet the criteria for diagnosis of diabetes. In the absence of unequivocal hyperglycemia, results should be confirmed by repeat testing. In a patient with classic symptoms of hyperglycemia or hyperglycemic crisis, random plasma glucose results greater than or equal to 200 mg/dL meet the criteria for diagnosis of diabetes. Reference: Standards of Medical Care in Diabetes 2016, [place] [employer]. Diabetes Care. 2016.39(Suppl 1). Potassium [Moles/Vol] 3.8 mmol/L Normal 3.7-5.1 [facility] Protein [Mass/Vol] 8.3 g/dL High 6.3-8.0 [facility] Sodium [Moles/Vol] 139 mmol/L Normal 136-144 [facility] Urea nitrogen [Mass/Vol] 18 mg/dL Normal 7-21 [facility] Hepat.B Vir Ult Qton 021 HBV DNA Ultra 1560 IU/mL Critically abnormal [facility] Comment on above: Result Comment: INTE RPRETATION: Positive for HBVDNA by PCR The linear range of this assay is 10 to 1,000,000,000 IU/mL. Reference Range: Negative for HBVDNA Performed By: #### A FP, HBEAG, HBSAG, HBVDNU #### [facility] [address] [address] Hepatitis B Surf. Agon 08-08 Hep Bs Ag Confirm Positive Critically abnormal Negative [facility] Comment on above: Performed By: #### A FP, HBEAG, HBSAG, HBVDNU #### [facility] [address] [place], [place] [address] Hepatitis Be Antigenon 08-08 Hepatitis Be Antigen Negative Normal Negative [facility] Comment on above: Performed By: #### A FP, HBEAG, HBSAG, HBVDNU #### [facility] [address] [place], [place] [address] US ABD RIGHT UPPER QUADRANTo n 08-08-2021 US ABD RIGHT UPPER QUADRANT * * *Final Report* * * DATE OF EXAM: Aug 08 2021 9:49AM WRU [id number] - US ABD RIGHT UPPER QUADRANT / PROCEDURE REASON: Chronic viral hepatitis B without delta agent and without coma (HCC) * * * * Physician Interpretation * * * * EXAM TITLE: US ABD RIGHT UPPER QUADRANT HISTORY: Chronic hepatitis B. TECHNIQUE: Sonography of the right upper quadrant was performed. Images were obtained and stored in a permanent archive. MQ: [id number] COMPARISON: Ultrasound abdomen on 10/15/2012. RESULT: Pancreas: Normal sonographic appearance in the visualized portions. Portions obscured: tail Liver: Echotexture: Coarse Echogenicity: Normal Surface contour: Smooth Lesions: None. Biliary: No intrahepatic biliary duct dilation. CBD: 4 mm in diameter. Gallbladder: Normal caliber -Contents: No cholelithiasis -Wall: 1 mm in thickness -Other: Negative sonographic Mcclain's sign. Right Kidney: Normal in size measuring 10 cm. There is a 5 mm echogenic focus with mild posterior shadowing noted in the interpolar kidney. Ascites: None. IMPRESSION: Coarse echotexture of the liver. Right renal calculus. Safety And Security Officer: JULIUS Transcribe Date/Time: Aug 08 2021 9:58A Dictated by : AZIZA SEGURA MD This examination was interpreted and the report reviewed and electronically signed by: AZIZA SEGURA MD on Aug 08 2021 10:02AM EST [id number] Normal [facility] CNOVon 08-02-2021 CNOV Office Visit ([facility] ) JESSIKA PAPPAS ([id number]) 1960 F Date Time Provider Department 08/02/21 9:00 AM WILLIAM PETERSON During your visit today, we recorded the following information about you: Pulse Blood pressure Weight Height 70/minute 132/88 64.9 kg 1.524 m William Peterson MD 08/02/2021 9:34 AM Signed HPI:Jessika Pappas is a 61 year old female who presents for Liver Disease (ref in scanning). She is known c/o- chronic Hep B, initially diagnosed 10 years ago. Her ALT were mildly elevated and had low viral loads. 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 She was initially started on Entecavir in 2011 and she took the medication for a year and stopped because she says her doctor in [place] told her that her virus load is low and she does not need it. She denies any symptoms at present. No h/o- nausea, vomiting, loss of appetite, hematemesis, bleeding ME, unexplained weight loss, diarrhea, tenesmus, nocturnal diarrhea. PAST MEDICAL HISTORY Diagnosis Date - Hepatitis B - Hypertension PAST SURGICAL HISTORY Procedure Laterality Date - DELIVERY ONLY - COLONOSCOPY GEN ANES 04/07/2012 - PAST SURGICAL HISTORY OF left wrist Allergies: ALLERGIES No Known Allergies Medications: Hydrochlorothiazide 12.5 mg capsule KLOR-CON M20 20 mEq tablet FAMILY HISTORY Problem Relation Age of Onset - Diabetes Father recent onset - Prostate Cancer Father - Colon Cancer No Family History Employer And Job Title: None on file Years Of Education Completed: Not specified Marital Status: Social History Tobacco Use - Smoking status: Never Smoker - Smokeless tobacco: Never Used Substance Use Topics - Alcohol use: Not Currently - Drug use: No Review of Systems: Review of Systems All other systems reviewed and are negative. I have confirmed and edited as necessary, the PFSH and ROS obtained by others. Hemoglobin (g/dL) Date Value 01/03/2013 11.9 01/03/2013 11.8 Hematocrit (%) Date Value 01/03/2013 36.8 01/03/2013 36.1 WBC (k/uL) Date Value 01/03/2013 7.95 Platelet Count (k/uL) Date Value 01/03/2013 325 CMP: Glucose 100 01/03/2013 BUN 21 01/03/2013 Creatinine 0.83 01/03/2013 Sodium 140 01/03/2013 Potassium 3.8 01/03/2013 Chloride 103 01/03/2013 CO2 25 01/03/2013 Protein, Total 8.3 01/03/2013 Albumin 4.1 01/03/2013 Calcium 9.7 01/03/2013 Alkaline Phosphatase 70 01/03/2013 Bilirubin, Total 0.3 01/03/2013 AST 33 01/03/2013 ALT 42 01/03/2013 Physical Examination: BP 132/88 Pulse 70 Ht 5' 0 (1.52m) Wt 143 lb (64.9kg) BMI 27.93 kg/(m2). General appearance: Well appearing, alert, in no acute distress, well-hydrated, well nourished. Skin: Skin color, texture, turgor normal Head: Normocephalic, no masses, lesions, tenderness or abnormalities Eyes: Anicteric sclera. Pupils are equally round. Oropharynx: Lips, mucosa, and tongue normal, teeth and gums normal, oropharynx normal Neck: Supple, no adenopathy; thyroid symmetric, normal size, no bruits Lungs: Lungs clear to auscultation. No wheezing, rhonchi, rales. Heart: RRR without murmur, gallop, or rubs. No ectopy Abdomen: Normal abdominal exam, Abdomen soft, non-tender. Bowel sounds normal. No masses, organomegaly Extremities: No deformities, edema, skin discoloration, clubbing or cyanosis. Good capillary refill. ASSESSMENT: 61 year old female patient who is in our clinic with chronic Hepatitis B with biopsy showing-Chronic hepatitis with mild activity and portal fibrous expansion. Her viral loads were low and she is HBeAg negative. She was taken off Entecavir several years ago reportedly by her doctor at [place]. R/o- disease activity. Will decide need for anti-viral medications after labs. PLAN: Check Hep C DNA levels, HBeAg, CMP, AFP, HBsAg. Also will obtain liver US for HCC surveillance. [facility]- 3 months William Peterson MD DATE: 08/02/21 TIME: 8:38 AM Referring Provider: ERICA HERNANDEZ [[id number]] Allergies As of Date: 08/02/2021 (No Known Allergies) Date Reviewed: 08/02/2021 Reviewed by: William Peterson MD - Fully Assessed Reason for Visit: Liver Disease [417] Cmt: ref in scanning Primary Visit Diagnosis:Chronic viral hepatitis B without delta agent and without coma (HCC) [B18.1] Order(s):HEP B VIRAL DNA MIGUEL [SQHBVDNU] Order #: [id number] FUTURE HEP B SURF AG SCRN [SQHBSAG] Order #: [id number] FUTURE HEP BE ANTIGEN [SQHBEAG] Order #: [id number] FUTURE ALPHA FETOPROTEIN BL [SQAFP] Order #: [id number] FUTURE COMP METABOLIC PANEL [SQCMP] Order #: [id number] FUTURE US ABD RT UPPER QUADRANT [[id number]] Order #: [id number] Prescriptions as of 08/02/2021 - Hydrochlorothiazide 12.5 mg capsule - KLOR-CON M20 20 mEq tablet Medication notes this encounter KLOR-CON M20 M (more content not included)... Normal [facility] Vital Signs Date Time Vital Sign Value Performing Clinician Jabarii paige 04-13-2025 15:37-0400 Body height 154.[address] Erica Hernandez DO Work Phone: [facility] 04-13-2025 15:37-0400 Body mass index (BMI) [Ratio] 28 kg/m2 Dr. Erica Hernandez DO Work Phone: [facility] 04-13-2025 15:37-0400 Body weight 67.[address] Erica Hernandez DO Work Phone: [facility] 04-13-2025 15:37-0400 Diastolic blood pressure 76 mm[Hg] Dr. Erica Hernandez DO Work Phone: [facility] 04-13-2025 15:37-0400 Heart rate 71 /min Dr. Erica Hernandez DO Work Phone: [facility] 04-13-2025 15:37-0400 Respiratory rate 18 /min Dr. Erica Hernandez DO Work Phone: [facility] 04-13-2025 15:37-0400 SaO2% (BldA) [Mass fraction] 95 % Dr. Erica Hernandez DO Work Phone: [facility] 04-13-2025 15:37-0400 Systolic blood pressure 122 mm[Hg] Dr. Erica Hernandez DO Work Phone: [facility] 01-26-2025 15:35-0400 Body mass index (BMI) [Ratio] 28 kg/m2 Dr. Erica Hernandez DO Work Phone: [facility] 01-26-2025 15:35-0400 Body weight 67.[address] Erica Hernandez DO Work Phone: [facility] 01-26-2025 15:35-0400 Diastolic blood pressure 72 mm[Hg] Dr. Erica Hernandez DO Work Phone: [facility] 01-26-2025 15:35-0400 Heart rate 75 /min Dr. Erica Hernandez DO Work Phone: [facility] 01-26-2025 15:35-0400 Respiratory rate 16 /min Dr. Erica Hernandez DO Work Phone: [facility] 01-26-2025 15:35-0400 SaO2% (BldA) [Mass fraction] 98 % Dr. Erica Hernandez DO Work Phone: [facility] 01-26-2025 15:35-0400 Systolic blood pressure 138 mm[Hg] Dr. Erica Hernandez DO Work Phone: [facility] 01-23-2025 09:00-0400 Body temperature 99.3 [degF] No Primary Care Physician [facility] 01-23-2025 09:00-0400 Diastolic blood pressure 59 mm[Hg] No Primary Care Physician [facility] 01-23-2025 09:00-0400 Heart rate 64 /min No Primary Care Physician [facility] 01-23-2025 09:00-0400 Respiratory rate 18 /min No Primary Care Physician [facility] 01-23-2025 09:00-0400 SaO2% (BldA) [Mass fraction] 98 % No Primary Care Physician [facility] 01-23-2025 09:00-0400 Systolic blood pressure 84 mm[Hg] No Primary Care Physician [facility] 01-23-2025 07:18-0400 Body height 154.94 cm No Primary Care Physician [facility] 01-23-2025 07:18-0400 Body mass index (BMI) [Ratio] 27.9 kg/m2 No Primary Care Physician [facility] 01-23-2025 07:18-0400 Body weight 67.13 kg No Primary Care Physician [facility] 10-25-2024 15:13-0500 Body mass index (BMI) [Ratio] 28.2 kg/m2 No Primary Care Physician [facility] 10-25-2024 15:13-0500 Body weight 67.75 kg No Primary Care Physician [facility] 10-25-2024 15:13-0500 Diastolic blood pressure 82 mm[Hg] No Primary Care Physician [facility] 10-25-2024 15:13-0500 Heart rate 78 /min No Primary Care Physician [facility] 10-25-2024 15:13-0500 Respiratory rate 18 /min No Primary Care Physician [facility] 10-25-2024 15:13-0500 SaO2% (BldA) [Mass fraction] 96 % No Primary Care Physician [facility] 10-25-2024 15:13-0500 Systolic blood pressure 143 mm[Hg] No Primary Care Physician [facility] Encounters Encounter Date Encounter Type Care Provider Facility Start: 06-14-2025 ambulatory Cachorro Friend Facility :[facility] Start: 04-13-2025 End: 04-13-2025 Patient encounter procedure Erin BONILLA -[facility] Work Phone: Start: 04-13-2025 End: 04-13-[address] Erica Hernandez DO Work Phone: [facility] Work Phone: Start: 03-31-2025 End: 03-31-[address] ERICA HERNANDEZ DO Facility:[facility] Start: 03-31-2025 End: 03-31-[address] ERICA HERNANDEZ DO [facility] Start: 03-31-2025 ambulatory Cachorro Courtney Facility :[facility] Start: 03-17-2025 End: 03-17-[address] ERICA HERNANDEZ DO Facility:[facility] Start: 03-17-2025 End: 03-17-[address] ERICA HERNANDEZ DO [facility] Start: 01-26-2025 End: 01-26-2025 Patient encounter procedure Erin BONILLA -[facility] Work Phone: Start: 01-26-2025 End: 01-26-2025 ambulatory Erin Lerner Facility:[facility] Start: 01-23-2025 Non-patient / Non-visit Cachorro Courtney DO -[facility] Start: 01-23-2025 End: 01-23-2025 Admission to same day surgery center Cachorro Courtney DO -Endoscopy Work Phone: Start: 01-23-2025 End: 01-23-2025 ambulatory No Primary Care Physician [facility] Work Phone: Start: 11-18-2024 End: 11-18-2024 Patient encounter procedure Erin BONILLA -[facility] Work Phone: Start: 11-18-2024 End: 11-18-2024 ambulatory Erin Lerner Facility:[facility] Start: 10-25-2024 End: 10-25-2024 Patient encounter procedure Erin BONILLA -[facility] Work Phone: Start: 10-25-2024 End: 10-25-2024 ambulatory Erin Lerner Facility:[facility] Start: 10-25-2024 End: 10-25-2024 ambulatory Erin Lerner Facility:[facility] Start: 09-16-2024 End: 09-20-[address] ERICA HERNANDEZ DO Facility:[facility] Start: 09-16-2024 End: 09-20-[address] ERICA HERNANDEZ DO [facility] Start: 03-31-2024 End: 04-01-[address] ERICA HERNANDEZ DO Facility:[facility] Start: 03-11-2024 End: 03-16-[address] ERICA HERNANDEZ DO Facility:[facility] Start: 03-11-2024 End: 03-16-2024 Encounter for general adult medical examination without abnormal findings DR ERICA HERNANDEZ DO Facility:[facility] Start: 08-07-2023 End: 08-08-[address] ERICA HERNANDEZ DO Facility:[facility] Start: 08-07-2023 End: 08-07-[address] ERICA HERNANDEZ DO [facility] Start: 12-16-2022 End: 12-16-[address] ERICA HERNANDEZ DO [facility] Start: 12-08-2022 End: 12-08-[address] ERICA HERNANDEZ DO [facility] Start: 05-30-2022 End: 05-30-[address] ERICA HERNANDEZ DO [facility] Start: 09-19-2021 End: 09-19-[address] ERICA HERNANDEZ DO [facility] Start: 02-01-2021 End: 02-07-2021 Discharged Recurring [facility]-Immunizations Procedures Date Procedure Procedure Detail Performing Clinician Start: 01-23-2025 Colonoscopy No Primary Care Physician Start: 11-18-2024 Ultrasonography of abdomen No Primary Care Physician Start: 10-26-[address] ANURADHA HERNANDEZ DO Comment on above: [facility] Start: 11-13-[address] WAYNE HERNANDEZ DO Comment on above: abd; abn Start: 10-23-[address] ERICA CUMMINS DO Start: 11-16-2014 Date of last papanic olaou test (observable entity) DR ERICA HERNANDEZ DO Start: 04-07-[address] ERICA CUMMINS DO Comment on above: normal, repeat [address] ERICA JONES DO Wrist region structu re (body structure) DR ERICA HERNANDEZ DO Comment on above: left Plan of Treatment Date Care Activity Detail Author Start: 01-23-2025 Colonoscopy flx dx w/collj spec when pfrmd DIAGNOSTIC COLONOSCOPY [facility] Start: 01-23-2025 Patient discharge [facility] Patient referral [facility] Work Phone: Immunizations Immunization Date Immunization Notes Care Provider Fa cili 03-17-2025 Pneumococcal conjuga te PCV20, polysaccharide LWD214 conjugate, adjuvant, PF; Translations: [Prevnar 20] DR ERICA HERNANDEZ DO [facility] 03-17-2025 zoster vaccine recombinant; Translations: [Shingrix] DR ERICA HERNANDEZ DO [facility] 03-11-2024 zoster vaccine recombinant; Translations: [Shingrix] DR ERICA HERNANDEZ DO [facility] 12-02-2022 SARS-CoV-2 mRNA (tohebertnameran) vaccine DR ERICA HERNANDEZ DO [facility] Comment on above: Location History: [facility] 10-17-2021 COVID-19, mRNA, LNP- S, PF, 30 mcg/0.3 mL dose; Translations: [Pfizer-BioNTech COVID-19 Vaccine] DR ERICA HERNANDEZ DO [facility] 02-22-2021 Covid (Pfizer) [facility] Work Phone: 02-01-2021 Covid (Pfizer) [facility] Work Phone: Comment on above: Result Comment: 2020: [id number] 09-24-2017 diphtheria and tetan us toxoids, adsorbed for pediatric use DR ERICA HERNANDEZ DO [facility] Payers Date Payer Category Payer Unknown [id number] 2024 Self-pay [id number] 2023 Unknown [id number] 1960 Unknown [id number] [id number]. 1960 Unknown [id number] 2.16.840.1.748958.3.579.2. 1960 Unknown [id number] 2.16.840.1.734618.3.579.2.627 1960 Unknown [id number] 2.16.840.1.717305.3.579.2.627 1960 Unknown [id number] 2.16.840.1.551721.3.579.2.627 1960 Unknown [id number] 2.16.840.1.517192.3.579.2.627 1960 Unknown [id number] 2.16.840.1.028875.3.579.2.627 Private Health Insurance SELF PAY INSURAN [id number] Unknown [id number] 2.16.840.1.739224.3.579.2.462 Unknown [id number] 2.16.840.1.236209.3.579.2.462 Unknown [id number] 2.16.840.1.875638.3.579.2.462 Unknown [id number] 2.16.840.1.544308.3.579.2.462 Unknown [id number] 2.16.840.1.781577.3.579.2.462 Unknown [id number] 2.16.840.1.044169.3.579.2.462 Unknown [id number] 2.16.840.1.137570.3.579.2.462 Unknown [id number] 2.16.840.1.511290.3.579.2.462 Unknown [id number] 2.16.840.1.949736.3.579.2.462 Social History Date Type Detail Facility Tobacco smoking status PRIS Unknown if ever smoked [facility] Work Phone: Start: 1960 Sex Assigned At Female [facility] Start: 09-16-2019 End: 02-06-2025 Never smoked tobacco (finding) [facility] Sex Assigned At [facility] Start: 10-16-2017 End: 01-23-2025 Sex Female (finding) [facility] NEGATED: Highlighted row Not [facility] Goals Date Patient Goal Desired Activity /State Mental Status Date Assessment Result Facility 01-23-2025 Cognitive function Level Of Consciousness Sedated [facility] Work Phone: Clinical Notes 08-02-2021 to 03-31-2025 Note Date & Type Note Facility 03-31-2025 Note Exam Date Time Procedure Performing Provider Status 03/31/25 1:17 PM BD Bone Density DEXA Axial Skeleton RACHID REDMOND DO; Auth (Verified) [id number] ORIGINAL EXAMINATION: BONE DENSITOMETRY 03/31/2025 1:18 pm TECHNIQUE: A bone density dual x-ray absorptiometry (DEXA) scan was performed of the axial (e.g. hips, spine) and/or appendicular (e.g. radius) skeleton as appropriate. COMPARISON: None HISTORY: ORDERING SYSTEM PROVIDED HISTORY: Reason for Exam: screening FINDINGS: T Score Left Femoral Neck: -2.4 Left Femoral Neck: 0.579 (g/cm2) T Score Left Hip: -1.3 Left Hip: 0.784 (g/cm2) T Score Lumbar Spine: -0.4 Lumbar Spine: 0.999 (g/cmd2) FRAX: 10 year fracture risk assessment Major osteoporotic fracture: 20% Hip fracture: 3.9% IMPRESSION: Osteopenia by WHO criteria. World Health Organization criteria: (Comparing with young normal sex matched population) - Normal: T-score at or above -1 SD (standard deviation) - Osteopenia: T-score between -1 and -2.5 SD - Osteoporosis: T-score at or below -2.5 SD The NOF recommends that FDA-approved medical therapies be considered in post-menopausal women and men age >/= 50 years with a: * Hip or vertebral fracture, or * T-score of /= 20% for major osteoporotic fractures or * >/= 3% for hip fractures All treatment decisions require clinical judgement and consideration of individual patient factors, including patient preferences, comorbidities, previous drug use, risk factors not captured in the FRAX registered model (e.g., frailty, falls, vitamin D deficiency, increased bone turnover, interval significant decline in bone density) and possible under- or over-estimation of fracture risk by FRAX. Interpreted by: Rachid Redmond DO Preliminary Report By: Rachid Redmond DO Electronically signed By Rachid Redmond DO Dictated Date: 03/31/2025 1:42:28 PM Prelim Date: 03/31/2025 1:43:04 PM Sign Date: 03/31/2025 1:43:04 PM Ordering Provider: ERICA HERNANDEZ [facility]03-10-2025 Consult note [facility] Medical Records Department [address] [place] [address] Anesthesia Postop Eval II 01/23/25906 MR#: [id number] Acct: [id number] Name: JESSIKA PAPPAS Rep #:[id number] : 1960 64 From: Bharath Woods MD PCP: Dr. Erica Hernandez DO Status: REG SDC Y Race: A Location: [place] [address] Anesthesia Postop Eval I Sum Postop Eval Completion status Anesthesia document: Postop Eval 1 completed: Yes Anesthesia Postop Eval I Summary Anesthesia Postop Eval I Summary: Anesthesia Postop Eval I: Assessment Summary Airway patent Yes 01/23/25 08:48 SOCIOLOGY TEACHER.CSIR Spontaneous unlabored Yes 01/23/25 08:48 SOCIOLOGY TEACHER.CSIR respirations Mental status nausea No 01/23/25 08:48 SOCIOLOGY TEACHER.CSIR Vomiting No 01/23/25 08:48 SOCIOLOGY TEACHER.CSIR Anesthesia Postop Eval I: Fluid Summary Crystalloid volume administer 0 01/23/25 08:48 SOCIOLOGY TEACHER.CSIR (ml) Colloids volume administered ( ml) Blood Product volume administered (ml) Total IV fluid infused 0 01/23/25 08:48 SOCIOLOGY TEACHER.CSIR Anesthesia Postop Eval I: Summary Notes Anesthesia Complication No 01/23/25 08:48 SOCIOLOGY TEACHER.CSIR Anesthesia Complication Comment: Post-operative progress note Anesthesia: Postop Eval II Evaluation Mental status: Awake Pain Level: 0 nausea: No Vomiting: No 01/23/25906 > Date _ Bharath Woods MD [facility] Signature: Date CC: ~ Signed [facility]03-10-2025 Consult note Author Bharath Woods [facility] Note Date/Time January 23, 2025 7:0 8am [facility] Medical Records Department [address] [place] [address] Pre-Anesthesia Evaluation 01/23/25 0708 MR#: [id number] Acct: [id number] Name: JESSIKA PAPPAS Rep #:[id number] : 1960 64 From: Bharath Woods MD PCP: Dr. Erica Hernandez, DO Status: [facility] Y Race: A Location: [place] [address] ASA Classification* ASA Classification ASA Classification: 2 Assessment & Plan Anesthesia* Anesthesia Assessment Anesthesia Assessment: Discussed sedation and/or anesthesia options, risks, benefits, and alternatives with patient/parents/legal guardian/POA. Questions invited. The patient/parents/legal guardian/POA seems to understand and agrees to proceedwith anesthesia plan. Reviewed the physical assessment, medical history, allergy history and patient home medications list prior to surgery/procedure/anesthetic and documented any changes. Performed airway and anesthesia risk assessments. Anesthesia Type Anesthesia Type: MAC Anesthesia Focused Assessment* Airway Assessment Mouth opens: >3 cm Mallampati Score: II Focused Labs Anesthesia Preop lab: CBC WBC 7.5 k/mm3 (4.4-11.0) 07/30/13 08:09 07/30/13 RBC 4.41 M/mm3 (4.2-5.4) 07/30/13 08:07/30/13 Hgb 10.9 g/dl (12.0-15.0) L 07/30/13 08:09 07/30/13 Hct 34.1 % (37-47) L 07/30/13 08:09 07/30/13 Plt Count 300 K/mm3 (150-450) 07/30/13 08:09 07/30/13 CHEMISTRY Potassium 4.0 mmol/L (3.5-5.1) 07/30/13 08:09 07/30/13 Sodium 143 mmol/L (136-145) 07/30/13 08:09 07/30/13 BUN 14 mg/dL (7-18) 07/30/13 08:09 07/30/13 Creatinine 1.0 mg/dL (0.6-1.0) 07/30/13 08:09 07/30/13 Glucose 91 mg/dL (70-110) 07/30/13 08:09 07/30/13 COAG Pre-Assessment Diagnosis/Proposed Procedure Planned Operative Procedure(s): cscope Anesthesia History 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 When Was Last Pacemaker Check QUESTION #4 FULL TEXT: You/Your Family Experience fever (hyperthermia) with Anesthesia Last Oral Intake Last Oral intake: Last Oral Intake NPO since Meds taken in AM with sips of water? Meds patient instructed to take am of surgery PONV PONV - merchant banker: PONV - merchant banker Female Yes 01/19/25 14:11 HX of Motion Sickness No 01/19/25 14:11 HX of N/V After Surgery No 01/19/25 14:11 Non-Smoker Yes 01/19/25 14:11 Duration of Surgery greater No 01/19/25 14:11 than 60 minutes Number of Risk Factors 2 01/19/25 14:11 PONV Score Moderate Risk 01/19/25 14:11 Height & Weight Height & Weight: Anesthesia: Height & Weight Height 5 ft 1 in 10/25/24 15:13 Respiratory Assessment Respiratory Assessment - merchant banker: Respiratory Tract Infection Hx - merchant banker Hx Respiratory Tract Infection No 01/19/25 14:11 STOP Sleep Apnea STOP Sleep Apnea - merchant banker: STOP Sleep Apnea - merchant banker Hx Hypertension Yes: controlled with med 01/19/25 14:11 Hx Sleep Apnea No: in the past, no longer 01/19/25 14:[address] CPAP BIPAP Do you snore loudly (louder No 01/19/25 14:11 than talking or can be heard Do you often feel tired/ No 01/19/25 14:11 fatigued/ sleepy during daytime? Has anyone observed you stop No 01/19/25 14:11 breathing during sleep? STOP Results Negative 01/19/25 14:11 QUESTION #5 FULL TEXT : Do you snore loudly (louder than talking or can be heard through closed doors)? Tobacco Use History Tobacco Use History - merchant banker: Tobacco Use History - merchant banker Tobacco Use Smoking Status Never smoker 01/19/25 14:11 Hx Tobacco Use No 01/19/25 14:11 Years Smoking Packs Smoked per Day Smoking Cessation Date was within the last 15 years Hx Smoking Cessation Date Hx Smoking Cessation Counseling Hematologic Medial History Hematologic Hx - merchant banker: Hematologic Medical Hx - clinic charge nurse Hx of Blood Transfusion No 01/19/25 14:11 Hx of Transfusion in last 3 No 01/19/25 14:11 Months Date of Last Transfusion (if within last 3 months) Ever experience any problems No 01/19/25 14:11 with transfusion(s)? Specify any problems Hx of Preganancy in last 3 N/A 01/19/25 14:11 Months Nurse Filling Out Transfusion NBUCHER 01/19/25 14:11 & Questions: Date: 01/19/25 01/19/25 14:11 Time: 14:12 01/19/25 14:11 Patient unable to answer at this time (ie. confused, unrespo /Reproduction History /Reproductive History - merchant banker: /Reproductive Hx- merchant banker Hx Now No 01/19/25 14:11 Gestational Age (in weeks): EDC: Hx Hx Para Hx Section SAB No 01/19/25 14:11 PFSH Medical History Low iron High cholesterol Non-smoker History of edema History of stress test History of EMG Type B viral hepatitis Median neuropathy Hypokalemia Hypertension HLD (hyperlipidemia) Degenerative disc disease, cervical Home Medications ?Medication ?Instructions ?Recorded ?Last Taken ?Type amlodipine 10 mg tablet 10 mg PO QDAY 10/17/24 Unkno wn History losartan 50 mg tablet 50 mg PO QDAY 10/17/24 Unkno wn History cetirizine 10 mg tablet (Zyrtec) 10 mg PO QDAY PRN all ergy symptoms 10/25/24 Unknown History multivitamin 1 tab PO QDAY 10/25/24 Unkno wn History bisacodyl 5 mg tablet,delayed 5 mg PO ONCE Colonoscopy #4 tabs 01/20/25 Unknown Rx release (Dulcolax (bisacodyl)) polyethylene glycol 3350 17 238 g PO ONCE #238 grams 0 01/20/25 Unknown Rx gram/dose oral powder Allergy/AdvReac Type Severity Reaction Status Date / Time No Known Allergies Allergy Verified 01/19/25 14:10 Family History Brother Hepatitis Mother Hypertension Father Hypertension Surgical History History of colonoscopy History of Social History Smoking Status: Never smoker alcohol intake: never substance use type: does not use caffeine: Yes Type: coffee Review of Systems (Anesthesia) ROS Narrative System reviewed and no additional complaints, except as documented. 01/23/25 0708 <Electronically signed by Bharath Woods MD > Date _ Bharath Woods MD Cosigner Signature: Date CC: ~ Signed [facility] Work Phone: 1(416) 856-255203-10-2025 Evaluation note* Diagnosis Onset Date Resolution Status Admit Date Screening for colon cancer acute January 23, 2025 7:03am Type B viral hepatitis acute [facility] 2024 7:03am Screening for colon cancer acute January 26, 2025 3:17pm Type B viral hepatitis acute [facility] 2024 3:17pm [facility] Work Phone: 1(624) 582-487303-10-2025 Procedure note [facility] Medical Records Department [address] [place] [address] Colonoscopy Report MR#: [id number] Acct: [id number] Name: JESSIKA PAPPAS Rep #:[id number] : 1960 64 From: Cachorro Courtney DO PCP: Dr. Erica Hernandez DO Status: REG SDC Patient Name: Jessika Pappas Procedure Date: 01/23/2025 8:30 AM Date of : 1960 Age: 64 Procedure: Colonoscopy Indications: Screening for colorectal malignant neoplasm Providers: Cachorro Courtney DO Referring MD: Cachorro Courtney DO Medicines: Monitored Anesthesia Care Patient Profile: This is a 64 year old female. Refer to note in patient chart for documentation of history and physical. Last Colonoscopy: more than 10 years ago. Complications: No immediate complications. Procedure: Pre-Anesthesia Assessment: - Prior to the procedure, a History and Physical was performed, and patient medications and allergies were reviewed. The patient is competent. The risks and benefits of the procedure and the sedation options and risks were discussed with the patient. All questions were answered and informed consent was obtained. Patient identification and proposed procedure were verified by the physician in the pre-procedure area. Mental Status Examination: alert and oriented. Airway Examination: normal oropharyngeal airway and neck mobility. Respiratory Examination: clear to auscultation. CV Examination: normal. Prophylactic Antibiotics: The patient does not require prophylactic antibiotics. Prior Anticoagulants: The patient has taken no anticoagulant or antiplatelet agents. ASA Grade Assessment: II - A patient with mild systemic disease. After reviewing the risks and benefits, the patient was deemed in satisfactory condition to undergo the procedure. The anesthesia plan was to use monitored anesthesia care (MAC). Immediately prior to administration of medications, the patient was re-assessed for adequacy to receive sedatives. The heart rate, respiratory rate, oxygen saturations, blood pressure, adequacy of pulmonary ventilation, and response to care were monitored throughout the procedure. The physical status of the patient was re-assessed after the procedure. After I obtained informed consent, the scope was passed under direct vision. Throughout the procedure, the patient's blood pressure, pulse, and oxygen saturations were monitored continuously. The Colonoscope was introduced through the anus and advanced to the cecum, identified by appendiceal orifice and ileocecal valve. The colonoscopy was performed without difficulty. The patient tolerated the procedure well. The quality of the bowel preparation was fair. The ileocecal valve was photographed. Scope In: 8:34:08 AM Scope Withdrawal Time 0 hours 6 minutes 21 seconds Scope Out: 8:43:28 AM Total Procedure Duration Time 0 hours 9 minutes 20 seconds Findings: The perianal and digital rectal examinations were normal. Stool was found in the rectum, in the recto-sigmoid colon, in the sigmoid colon, in the descending colon, in the ascending colon and in the cecum. The exam was otherwise without abnormality on direct and retroflexion views. Non-bleeding internal hemorrhoids were found during retroflexion. The hemorrhoids were Grade I (internal hemorrhoids that do not prolapse). Impression: - Preparation of the colon was fair. - Stool in the rectum, in the recto-sigmoid colon, in the sigmoid colon, in the descending colon, in the ascending colon and in the cecum. - The examination was otherwise normal on direct and retroflexion views. - No specimens collected. Recommendation: - Discharge patient to home. - Resume previous diet. - Continue present medications. - Repeat colonoscopy in 6 months because the bowel preparation was suboptimal. Procedure Code(s): --- Professional --- G0121, Colorectal cancer screening; colonoscopy on individual not meeting criteria for high risk CPT copyright 2021 [employer]. All rights reserved. The codes documented in this report are preliminary and upon pre coder review may be revised to meet current compliance requirements. Cachorro Courtney DO 01/23/2025 8:49:55 AM This report has been signed electronically. Number of Addenda: 0 Note Initiated On: 01/23/2025 8:30 AM 01/23/25 0850 Date _ Cachorro Parham Signature: Date (if indicated) CC: Dr. Erica Hernandez DO; Cachorro Courtney DO ~ Date Dictated: 01/23/25829 Date Transcribed: Safety And Security Officer: RF Signed [facility]03-10-2025 Procedure note [facility] Medical Records Department [address] [place] [address] Operative Report - CC Letter MR#: [id number] Acct: [id number] Name: JESSIKA PAPPAS Rep #:[id number] : 1960 64 From: Cachorro Courtney DO PCP: Dr. Erica Hernandez DO Status: REG [facility] 01/23/2025 Erica Hernandez Re : Colonoscopy procedure for Jessika Pappas Dear Chris This procedure was performed on Thursday, January 23, 2025. My impressions and recommendations are as follows: Impressions : - Preparation of the colon was fair. - Stool in the rectum, in the recto-sigmoid colon, in the sigmoid colon, in the descending colon, in the ascending colon and in the cecum. - The examination was otherwise normal on direct and retroflexion views. - No specimens collected. Recommendations : - Discharge patient to home. - Resume previous diet. - Continue present medications. - Repeat colonoscopy in 6 months because the bowel preparation was suboptimal. My findings are described in the full procedure note, which is enclosed. If I can be of further assistance, please feel free to contact me at . Sincerely, Cachorro Courtney DO 01/23/2025 8:49:55 AM This report has been signed electronically. 01/23/25 0850 Date _ Cachorro Courtney DO Cosignelaine Signature: Date (if indicated) CC: Dr. Erica Hernandez DO; Cachorro Courtney DO ~ Date Dictated: 01/23/25 0830 Date Transcribed: Safety And Security Officer: RF Signed [facility] [place]03-10-2025 Consult note [facility] Medical Records Department [address] [place] [address] Anesthesia Postop Eval I 01/23/2548 MR#: [id number] Acct: [id number] Name: JESSIKA PAPPAS Rep #:[id number] : 1960 64 From: Georgia Armenta PCP: Dr. Erica Hernandez DO Status: REG [facility] Y Race: A Location: [place] [address] Anesthesia: Postop Eval I Current Vital Signs Temperature: 98.1 F Pulse Rate: 64 Blood Pressure: 87/57 Respiratory Rate: 18 Pulse Ox: 95 Assessment Airway patent: Yes Spontaneous unlabored respirations: Yes nausea: No Vomiting: No Anesthesia Complication: No Fluid Hydration Crystalloid volume administer (ml): 0 Total IV fluid infused: 0 Progress Note Anesthesia document: Postop Eval 1 completed: Yes 01/23/25 0849 a> Date _ Georgia Philippe Signature: Date CC: ~ Signed [facility]03-10-20[address] and [address] [facility] Medical Records Department [address] [place] [address] History & Physical Exam 01/23/2540 MR#: [id number] Acct: [id number] Name: JESSIKA PAPPAS Rep #:[id number] : 1960 64 From: Cachorro Courtney DO PCP: Dr. Erica Hernandez, DO Status: [facility] Location: [place] [address] HPI - General General Date of Admission: 01/23/25 Date of Service: 01/23/25 Chief Complaint: Colon cancer screening HPI Narrative JESSIKA PAPPAS, is a 64 F who presents for screening colonoscopy. LABS HBVsAg positive 09/16/2024 HBV Core, IgM Ab non-reactive 09/16/2024 09/16/2024 PLT 296, HGB 11.5, albumin 3.5, AST and ALT WNL - reports she was treated for HBV 20 years ago at [facility] - Colonoscopy was about 12 years ago - denies any abdominal pain - denies any jaundice - denies any abdominal pain - denies any N/V - denies any weight loss - denies any HB - Brother with HBV - denies any heart or lung disease - denies any kidney disease Coding [facility] Medical History Low iron High cholesterol Non-smoker History of edema History of stress test History of EMG Type B viral hepatitis Median neuropathy Hypokalemia Hypertension HLD (hyperlipidemia) Degenerative disc disease, cervical Home Medications ?Medication ?Instructions ?Recorded ?Last Taken ?Type amlodipine 10 mg tablet 10 mg PO QDAY 10/17/2401/23 History losartan 50 mg tablet 50 mg PO QDAY 10/17/24 Unkno wn History cetirizine 10 mg tablet (Zyrtec) 10 mg PO QDAY PRN all ergy symptoms 10/25/24 Unknown History multivitamin 1 tab PO QDAY 10/25/24 Unkno wn History bisacodyl 5 mg tablet,delayed 5 mg PO ONCE Colonoscopy #4 tabs 01/20/25 Unknown Rx release (Dulcolax (bisacodyl)) polyethylene glycol 3350 17 238 g PO ONCE #238 grams 0 01/20/25 Unknown Rx gram/dose oral powder Allergy/AdvReac Type Severity Reaction Status Date / Time No Known Allergies Allergy Verified 01/23/25 07:17 Family History Brother Hepatitis Mother Hypertension Father Hypertension Surgical History History of colonoscopy History of Social History Smoking Status: Never smoker alcohol intake: never substance use type: does not use caffeine: Yes Type: coffee ROS Constitutional Constitutional: Denies fatigue, fever(s), poor appetite, weight gain or weight loss Gastrointestinal Gastrointestinal: Denies belching, bloating, change in bowel habits, change in stool character, chewing difficulty, coffee ground emesis, constipation, cramping, diarrhea, dyspepsia, dysphagia, earlysatiety, excessive flatus, fecalincontinence, heartburn, hematemesis, hematochezia, hemorrhoids, loose stools, melena, nausea, odynophagia, rectal bleeding, tenesmus, vomiting or weight changes Vital Signs Vital Signs Vital Signs: 01/23/25 07:18 Temperature 97.2 F L Temperature Source Temporal Pulse Rate 73 Respiratory Rate 16 Blood Pressure 123/67 H Blood Pressure Mean 85 Blood Pressure Source Monitor Blood Pressure Position Semi-Fowlers Blood Pressure Location Left Arm Pulse Ox 93 Oxygen Delivery Method Room Air Weight Weight: 148 lb Body Mass Index (BMI) 27.9 Physical Exam Const alert, oriented x3, no apparent distress and healthy appearing General Appearance: cooperative GI normal to inspection, nondistended, normoactive bowel sounds, soft to palpation,non-tender and non-distended Percussion: normal to percussion Rectal Exam: deferred Assessment & Plan Assessment/Plan (1) Screening for colon cancer: (2) Type B viral hepatitis: QUALIFIERS: Viral hepatitis chronicity: chronic Hepatic coma status: without hepatic coma PLAN: Assessment and Plan Assessment and Plan (1) Type B viral hepatitis: Status: Acute Qualifiers: Viral hepatitis chronicity: chronic Hepatic coma status: without hepatic coma (2) Screening for colon cancer: Status: Acute Orders: Orders Abdomen Limited Today B19.10 - Unspecified viral hepatitis B without hepatic coma Hepatitis B Surface Antibody Today B19.10 - Unspecified viral hepatitis B without hepatic coma Hepatitis Be Ab Today B19.10 - Unspecified viral hepatitis B without hepatic coma Hepatitis Be Ag Today B19.10 - Unspecified viral hepatitis B without hepatic coma Hepatitis A AB, Total Today B19.10 - Unspecified viral hepatitis B without hepatic coma Hepatitis C Antibody Today B19.10 - Unspecified viral hepatitis B without hepatic coma Miscellaneous Lab Procedure Today B19.10 - Unspecified viral hepatitis B without hepatic coma Plan 64y/o female presents for consultation with H of HBV. Recent labs revealed HBVsAg positive,negative HBV Core, IgM with a low positive sAb (16). She reports a remote history of HBV treatment at [facility]. I have ordered additional labs to further assess presence of HBV infection. She will also complete an ABD US at this time as well as age related screening colonoscopy. Plan Details Follow Up: 3 Months 01/23/25 0742 Cosigner Signature (if applicable): CC: Dr. Erica Hernandez DO; Cachorro Courtney DO~ Signed [facility]03-10-2025 [facility] Medical Records Department [address] [place] [address] History Physical Exam 01/23/25 0740 MR#: [id number] Acct: [id number] Name: JESSIKA PAPPAS Rep #: [id number] : 1960 64 From: Cachorro Courtney DO PCP: Dr. Erica Hernandez DO Status:[facility] Location: [place] [address] HPI - General General Date of Admission: 01/23/25 Date of Service: 01/23/25 Chief Complaint: Colon cancer screening HPI Narrative JESSIKA PAPPAS, is a 64 F who presents for screening colonoscopy. LABS HBVsAg positive 09/16/2024 HBV Core, IgM Ab non-reactive 09/16/2024 09/16/2024 PLT 296, HGB 11.5, albumin 3.5, AST and ALT WNL - reports she was treated for HBV 20 years ago at [facility] - Colonoscopy was about 12 years ago - denies any abdominal pain - denies any jaundice - denies any abdominal pain - denies any N/V - denies any weight loss - denies any HB - Brother with HBV - denies any heart or lung disease - denies any kidney disease Coding [facility] Medical History Low iron High cholesterol Non-smoker History of edema History of stress test History of EMG Type B viral hepatitis Median neuropathy Hypokalemia Hypertension HLD (hyperlipidemia) Degenerative disc disease, cervical Home Medications ???Medication ???Instructions ???Recorded ???Last Taken ???Type amlodipine 10 mg tablet 10 mg PO QDAY 10/17/24 01/23/25 Hi story losartan 50 mg tablet 50 mg PO QDAY 10/17/24 Unknown His tory cetirizine 10 mg tablet (Zyrtec) 10 mg PO QDAY PRN allergy symptoms 10/25/24 Unknown History multivitamin 1 tab PO QDAY 10/25/24 Unknown His tory bisacodyl 5 mg tablet,delayed 5 mg PO ONCE Colonoscopy #4 tabs 01/20/25 Unknown Rx release (Dulcolax (bisacodyl)) polyethylene glycol 3350 17 238 g PO ONCE #238 grams 01/20/25 Unknown Rx gram/dose oral powder Allergy/AdvReac Type Severity Reaction Status Date / Time No Known Allergies Allergy Verified 01/23/25 07:17 Family History Brother Hepatitis Mother Hypertension Father Hypertension Surgical History History of colonoscopy History of Social History Smoking Status: Never smoker alcohol intake: never substance use type: does not use caffeine: Yes Type: coffee ROS Constitutional Constitutional: Denies fatigue, fever(s), poor appetite, weight gain or weight loss Gastrointestinal Gastrointestinal: Denies belching, bloating, change in bowel habits, change in stool character, chewing difficulty, coffee ground emesis, constipation, cramping, diarrhea, dyspepsia, dysphagia, early satiety, excessive flatus, fecal incontinence, heartburn, hematemesis, hematochezia, hemorrhoids, loose stools, melena, nausea, odynophagia, rectal bleeding, tenesmus, vomiting or weight changes Vital Signs Vital Signs Vital Signs: 01/23/25 07:18 Temperature 97.2 F L Temperature Source Temporal Pulse Rate 73 Respiratory Rate 16 Blood Pressure 123/67 H Blood Pressure Mean 85 Blood Pressure Source Monitor Blood Pressure Position Semi-Fowlers Blood Pressure Location Left Arm Pulse Ox 93 Oxygen Delivery Method Room Air Weight Weight: 148 lb Body Mass Index (BMI) 27.9 Physical Exam Const alert, oriented x3, no apparent distress and healthy appearing General Appearance: cooperative GI normal to inspection, nondistended, normoactive bowel sounds, soft to palpation, non-tender and non- distended Percussion: normal to percussion Rectal Exam: deferred Assessment Plan Assessment/Plan (1) Screening for colon cancer: (2) Type B viral hepatitis: QUALIFIERS: Viral hepatitis chronicity: chronic Hepatic coma status: without hepatic coma PLAN: Assessment and Plan Assessment and Plan (1) Type B viral hepatitis: Status: Acute Qualifiers: Viral hepatitis chronicity: chronic Hepatic coma status: without hepatic coma (2) Screening for colon cancer: Status: Acute Orders: Orders Abdomen Limited Today B19.10 - Unspecified viral hepatitis B without hepatic coma Hepatitis B Surface Antibody Today B19.10 - Unspecified viral hepatitis B without hepatic coma Hepatitis Be Ab Today B19.10 - Unspecified viral hepatitis B without hepatic coma Hepatitis Be Ag Today B19.10 - Unspecified viral hepatitis B without hepatic coma Hepatitis A AB, Total Today B19.10 - Unspecified viral hepatitis B without hepatic coma Hepatitis C Antibody Today B19.10 - Unspecified viral hepatitis B without hepatic coma Miscellaneous Lab Procedure Today B19.10 - Unspecified viral hepatitis B without (more content not included)...[facility]03-10-2025 Consult note [facility] Medical Records Department [address] [place] [address] Pre-Anesthesia Evaluation 01/23/25 0708 MR#: [id number] Acct: [id number] Name: JESSIKA PAPPAS Rep #:[id number] : 1960 64 From: Bharath Woods MD PCP: Dr. Erica Hernandez, DO Status: REG [facility] Y Race: A Location: [place] [address] ASA Classification* ASA Classification ASA Classification: 2 Assessment & Plan Anesthesia* Anesthesia Assessment Anesthesia Assessment: Discussed sedation and/or anesthesia options, risks, benefits, and alternatives with patient/parents/legal guardian/POA. Questions invited. The patient/parents/legal guardian/POA seems to understand and agrees to proceedwith anesthesia plan. Reviewed the physical assessment, medical history, allergy history and patient home medications list prior to surgery/procedure/anesthetic and documented any changes. Performed airway and anesthesia risk assessments. Anesthesia Type Anesthesia Type: MAC Anesthesia Focused Assessment* Airway Assessment Mouth opens: >3 cm Mallampati Score: II Focused Labs Anesthesia Preop lab: CBC WBC 7.5 k/mm3 (4.4-11.0) 07/30/13 08:09 07/30/13 RBC 4.41 M/mm3 (4.2-5.4) 07/30/13 08:09 07/30/13 Hgb 10.9 g/dl (12.0-15.0) L 07/30/13 08:09 07/30/13 Hct 34.1 % (37-47) L 07/30/13 08:09 07/30/13 Plt Count 300 K/mm3 (150-450) 07/30/13 08:09 07/30/13 CHEMISTRY Potassium 4.0 mmol/L (3.5-5.1) 07/30/13 08:09 07/30/13 Sodium 143 mmol/L (136-145) 07/30/13 08:09 07/30/13 BUN 14 mg/dL (7-18) 07/30/13 08:09 07/30/13 Creatinine 1.0 mg/dL (0.6-1.0) 07/30/13 08:09 07/30/13 Glucose 91 mg/dL (70-110) 07/30/13 08:09 07/30/13 COAG Pre-Assessment Diagnosis/Proposed Procedure Planned Operative Procedure(s): cscope Anesthesia History 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 When Was Last Pacemaker Check QUESTION #4 FULL TEXT: You/Your Family Experience fever (hyperthermia) with Anesthesia Last Oral Intake Last Oral intake: Last Oral Intake NPO since Meds taken in AM with sips of water? Meds patient instructed to take am of surgery PONV PONV - merchant banker: PONV - merchant banker Female Yes 01/19/25 14:11 HX of Motion Sickness No 01/19/25 14:11 HX of N/V After Surgery No 01/19/25 14:11 Non-Smoker Yes 01/19/25 14:11 Duration of Surgery greater No 01/19/25 14:11 than 60 minutes Number of Risk Factors 2 01/19/25 14:11 PONV Score Moderate Risk 01/19/25 14:11 Height & Weight Height & Weight: Anesthesia: Height & Weight Height 5 ft 1 in 10/25/24 15:13 Respiratory Assessment Respiratory Assessment - merchant banker: Respiratory Tract Infection Hx - merchant banker Hx Respiratory Tract Infection No 01/19/25 14:11 STOP Sleep Apnea STOP Sleep Apnea - merchant banker: STOP Sleep Apnea - merchant banker Hx Hypertension Yes: controlled with med 01/19/25 14:11 Hx Sleep Apnea No: in the past, no longer 01/19/25 14:[address] CPAP BIPAP Do you snore loudly (louder No 01/19/25 14:11 than talking or can be heard Do you often feel tired/ No 01/19/25 14:11 fatigued/ sleepy during daytime? Has anyone observed you stop No 01/19/25 14:11 breathing during sleep? STOP Results Negative 01/19/25 14:11 QUESTION #5 FULL TEXT : Do you snore loudly (louder than talking or can be heard through closeddoors)? Tobacco Use History Tobacco Use History - merchant banker: Tobacco Use History - merchant banker Tobacco Use Smoking Status Never smoker 01/19/25 14:11 Hx Tobacco Use No 01/19/25 14:11 Years Smoking Packs Smoked per Day Smoking Cessation Date was within the last 15 years Hx Smoking Cessation Date Hx Smoking Cessation Counseling Hematologic Medial History Hematologic Hx - merchant banker: Hematologic Medical Hx - clinic charge nurse Hx of Blood Transfusion No 01/19/25 14:11 Hx of Transfusion in last 3 No 01/19/25 14:11 Months Date of Last Transfusion (if within last 3 months) Ever experience any problems No 01/19/25 14:11 with transfusion(s)? Specify any problems Hx of Preganancy in last 3 N/A 01/19/25 14:11 Months Nurse Filling Out Transfusion NBUCHER 01/19/25 14:11 & Questions: Date: 01/19/25 01/19/25 14:11 Time: 14:12 01/19/25 14:11 Patient unable to answer at this time (ie. confused, unrespo /Reproduction History /Reproductive History - merchant banker: /Reproductive Hx- merchant banker Hx Now No 01/19/25 14:11 Gestational Age (in weeks): EDC: Hx Hx Para Hx Section SAB No 01/19/25 14:11 [facility] Medical History Low iron High cholesterol Non-smoker History of edema History of stress test History of EMG Type B viral hepatitis Median neuropathy Hypokalemia Hypertension HLD (hyperlipidemia) Degenerative disc disease, cervical Home Medications ?Medication ?Instructions ?Recorded ?Last Taken ?Type amlodipine 10 mg tablet 10 mg PO QDAY 10/17/24 Unkno wn History losartan 50 mg tablet 50 mg PO QDAY 10/17/24 Unkno wn History cetirizine 10 mg tablet (Zyrtec) 10 mg PO QDAY PRN all ergy symptoms 10/25/24 Unknown History multivitamin 1 tab PO QDAY 10/25/24 Unkno wn History bisacodyl 5 mg tablet,delayed 5 mg PO ONCE Colonoscopy #4 tabs 01/20/25 Unknown Rx release (Dulcolax (bisacodyl)) polyethylene glycol 3350 17 238 g PO ONCE #238 grams 0 01/20/25 Unknown Rx gram/dose oral powder Allergy/AdvReac Type Severity Reaction Status Date / Time No Known Allergies Allergy Verified 01/19/25 14:10 Family History Brother Hepatitis Mother Hypertension Father Hypertension Surgical History History of colonoscopy History of Social History Smoking Status: Never smoker alcohol intake: never substance use type: does not use caffeine: Yes Type: coffee Review of Systems (Anesthesia) ROS Narrative System reviewed and no additional complaints, except as documented. 01/23/25 0708 > Date _ Bharath Philippe Signature: Date CC: ~ Signed [facility]12-10-2024 Evaluation note* Diagnosis Onset Date Resolution Status Admit Date Screening for colon cancer acute October 25, 2024 3:05pm Type B viral hepatitis acute De cember 2023 3:05pm Screening for colon cancer acute January 23, 2025 7:03am Type B viral hepatitis acute [facility] 2024 7:03am [facility] Work Phone: 1(200) 382-645811-23-2021 NoteHNO ID: [id number] Author: William Peterson MD Service: ? Author Type: Physician Type: Progress Notes Filed: 10/08/2021 9:24 AM Note Text: CHIEF COMPLAINT: Patient presents with: Recheck: Hepatitis B HPI Jessika Pappas is a 61 year old female here today for Recheck (Hepatitis B ) She was referred for h/o-- chronic Hep B, initially diagnosed 10 years ago. Her ALT were mildly elevated and had low viral loads. 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 She was initially started on Entecavir in 2011 and she took the medication for a year and stopped because she says her doctor in [place] told her that her virus load is low and she does not need it. We repeated her labs- her HBeAg is negative and HBV DNA levels are 1560 international unit(s) / ml. Her LFT's are normal but liver US show cirrhosis. Current Outpatient Medications Medication Sig - amLODIPine (NORVASC) 10 mg tablet - halobetasol propionate (ULTRAVATE) 0.05 % ointment - Hydrochlorothiazide 12.5 mg capsule - KLOR-CON M20 20 mEq tablet - amLODIPine (NORVASC) 5 mg tablet (Patient not taking: Reported on 10/08/2021 ) - methocarbamol (ROBAXIN) 750 mg tablet (Patient not taking: Reported on 10/08/2021 ) No current facility-administered medications for this visit. ALLERGIES No Known Allergies Social History Tobacco Use - Smoking status: Never Smoker - Smokeless tobacco: Never Used Vaping Use - Vaping Use: Never used Substance Use Topics - Alcohol use: Not Currently - Drug use: No PAST MEDICAL HISTORY Diagnosis Date - Hepatitis B - Hypertension PAST SURGICAL HISTORY Procedure Laterality Date - DELIVERY ONLY - COLONOSCOPY GEN ANES 04/07/2012 - PAST SURGICAL HISTORY OF left wrist FAMILY HISTORY Problem Relation Age of Onset - Diabetes Father recent onset - Prostate Cancer Father - Colon Cancer No Family History REVIEW OF SYSTEMS Review of Systems All other systems reviewed and are negative. I have confirmed and edited as necessary, the PFSH and ROS obtained by others. PHYSICAL EXAM BP 140/82 Pulse 70 Ht 5' 0 (1.52m) Wt 141 lb (64.0kg) BMI 27.54 kg/(m2). Physical Exam General appearance: Well appearing, alert, in no acute distress, well-hydrated, well nourished. Skin: Skin color, texture, turgor normal Head: Normocephalic, no masses, lesions, tenderness or abnormalities Eyes: Anicteric sclera. Pupils are equally round. Oropharynx: Lips, mucosa, and tongue normal, teeth and gums normal, oropharynx normal Neck: Supple, no adenopathy; thyroid symmetric, normal size, no bruits Lungs: Lungs clear to auscultation. No wheezing, rhonchi, rales. Heart: RRR without murmur, gallop, or rubs. No ectopy Abdomen: Normal abdominal exam, Abdomen soft, non-tender. Bowel sounds normal. No masses, organomegaly Extremities: No deformities, edema, skin discoloration, clubbing or cyanosis. Good capillary refill. ASSESSMENT: No diagnosis found. 61/F who is in our clinic with chronic Hepatitis B with biopsy showing-Chronic hepatitis with mild activity and portal fibrous expansion. She has been on Entecavir in past which was later discontinued. Her latest HBV DNA is 1560 international unit(s) / ml and HBeAg is negative but she has cirrhotic liver on US. In view of having compensated liver cirrhosis with low HBV DNA levels, antiviral therapy is indicated. PLAN: No orders found for this visit on 10/08/21. No follow-ups on file. We will start her on Entecavir. Repeat labs in 3 months. RTC - 4 months William Peterson MD DATE: 10/08/21 TIME: 8:44 [facility]09-17-2021 NoteHNO ID: [id number] Author: William Peterson MD Service: ? Author Type: Physician Type: Progress Notes Filed: 08/02/2021 9:34 AM Note Text: HPI:Jessika Pappas is a 61 year old female who presents for Liver Disease (ref in scanning). She is known c/o- chronic Hep B, initially diagnosed 10 years ago. Her ALT were mildly elevated and had low viral loads. 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 She was initially started on Entecavir in 2011 and she took the medication for a year and stopped because she says her doctor in [place] told her that her virus load is low and she does not need it. She denies any symptoms at present. No h/o- nausea, vomiting, loss of appetite, hematemesis, bleeding ME, unexplained weight loss, diarrhea, tenesmus, nocturnal diarrhea. PAST MEDICAL HISTORY Diagnosis Date - Hepatitis B - Hypertension PAST SURGICAL HISTORY Procedure Laterality Date - DELIVERY ONLY - COLONOSCOPY GEN ANES 04/07/2012 - PAST SURGICAL HISTORY OF left wrist Allergies: ALLERGIES No Known Allergies Medications: Hydrochlorothiazide 12.5 mg capsule KLOR-CON M20 20 mEq tablet FAMILY HISTORY Problem Relation Age of Onset - Diabetes Father recent onset - Prostate Cancer Father - Colon Cancer No Family History Employer And Job Title: None on file Years Of Education Completed: Not specified Marital Status: Social History Tobacco Use - Smoking status: Never Smoker - Smokeless tobacco: Never Used Substance Use Topics - Alcohol use: Not Currently - Drug use: No Review of Systems: Review of Systems All other systems reviewed and are negative. I have confirmed and edited as necessary, the PFSH and ROS obtained by others. Hemoglobin (g/dL) Date Value 01/03/2013 11.9 01/03/2013 11.8 Hematocrit (%) Date Value 01/03/2013 36.8 01/03/2013 36.1 WBC (k/uL) Date Value 01/03/2013 7.95 Platelet Count (k/uL) Date Value 01/03/2013 325 CMP: Glucose 100 01/03/2013 BUN 21 01/03/2013 Creatinine 0.83 01/03/2013 Sodium 140 01/03/2013 Potassium 3.8 01/03/2013 Chloride 103 01/03/2013 CO2 25 01/03/2013 Protein, Total 8.3 01/03/2013 Albumin 4.1 01/03/2013 Calcium 9.7 01/03/2013 Alkaline Phosphatase 70 01/03/2013 Bilirubin, Total 0.3 01/03/2013 AST 33 01/03/2013 ALT 42 01/03/2013 Physical Examination: BP 132/88 Pulse 70 Ht 5' 0 (1.52m) Wt 143 lb (64.9kg) BMI 27.93 kg/(m2). General appearance: Well appearing, alert, in no acute distress, well-hydrated, well nourished. Skin: Skin color, texture, turgor normal Head: Normocephalic, no masses, lesions, tenderness or abnormalities Eyes: Anicteric sclera. Pupils are equally round. Oropharynx: Lips, mucosa, and tongue normal, teeth and gums normal, oropharynx normal Neck: Supple, no adenopathy; thyroid symmetric, normal size, no bruits Lungs: Lungs clear to auscultation. No wheezing, rhonchi, rales. Heart: RRR without murmur, gallop, or rubs. No ectopy Abdomen: Normal abdominal exam, Abdomen soft, non-tender. Bowel sounds normal. No masses, organomegaly Extremities: No deformities, edema, skin discoloration, clubbing or cyanosis. Good capillary refill. ASSESSMENT: 61 year old female patient who is in our clinic with chronic Hepatitis B with biopsy showing-Chronic hepatitis with mild activity and portal fibrous expansion. Her viral loads were low and she is HBeAg negative. She was taken off Entecavir several years ago reportedly by her doctor at [place]. R/o- disease activity. Will decide need for anti-viral medications after labs. PLAN: Check Hep C DNA levels, HBeAg, CMP, AFP, HBsAg. Also will obtain liver US for HCC surveillance. RTTC- 3 months William Peterson MD DATE: 08/02/21 TIME: 8:38 [facility] note Author Georgia Armenta [facility] Note Date/Time January 23, 2025 8:4 9am [facility] Medical Records Department [address] [place] [address] Anesthesia Postop Eval I 01/23/25 0848 MR#: [id number] Acct: [id number] Name: JESSIKA PAPPAS Rep #:[id number] : 1960 64 From: Georgia Armenta PCP: Dr. Erica Hernandez, DO Status: REG [facility] Y Race: A Location: [place] [address] Anesthesia: Postop Eval I Current Vital Signs Temperature: 98.1 F Pulse Rate: 64 Blood Pressure: 87/57 Respiratory Rate: 18 Pulse Ox: 95 Assessment Airway patent: Yes Spontaneous unlabored respirations: Yes nausea: No Vomiting: No Anesthesia Complication: No Fluid Hydration Crystalloid volume administer (ml): 0 Total IV fluid infused: 0 Progress Note Anesthesia document: Postop Eval 1 completed: Yes 01/23/25 0849 <Electronically signed by Georgia aguayo> Date _ Georgia Armenta Jose Martin Signature: Date CC: ~ Signed [facility] Work Phone: [facility] Author Bharath Woods [facility] Note Date/Time January 23, 2025 9:3 7am [facility] Medical Records Department [address] [place] [address] Anesthesia Postop Eval II 01/23/25 0907 MR#: [id number] Acct: [id number] Name: JESSIKA PAPPAS Rep #:[id number] : 1960 64 From: Bharath Woods MD PCP: Dr. Erica Hernandez, DO Status: REG [facility] Y Race: A Location: [place] [address] Anesthesia Postop Eval I Sum Postop Eval Completion status Anesthesia document: Postop Eval 1 completed: Yes Anesthesia Postop Eval I Summary Anesthesia Postop Eval I Summary: Anesthesia Postop Eval I: Assessment Summary Airway patent Yes 01/23/25 08:48 [employer]IOLOGY TEACHER.CSIR Spontaneous unlabored Yes 01/23/25 08:48 SOCIOLOGY TEACHER.CSIR respirations Mental status nausea No 01/23/25 08:48 SOCIOLOGY TEACHER.CSIR Vomiting No 01/23/25 08:48 SOCIOLOGY TEACHER.CSIR Anesthesia Postop Eval I: Fluid Summary Crystalloid volume administer 0 01/23/25 08:48 SOCIOLOGY TEACHER.CSIR (ml) Colloids volume administered ( ml) Blood Product volume administered (ml) Total IV fluid infused 0 01/23/25 08:48 SOCIOLOGY TEACHER.CSIR Anesthesia Postop Eval I: Summary Notes Anesthesia Complication No 01/23/25 08:48 SOCIOLOGY TEACHER.CSIR Anesthesia Complication Comment: Post-operative progress note Anesthesia: Postop Eval II Evaluation Mental status: Awake Pain Level: 0 nausea: No Vomiting: No 01/23/25 0907 <Electronically signed by Bharath Woods MD > Date _ Bharath Woods MD Cosigner Signature: Date CC: ~ Signed [facility] Work Phone: Evaluation + Plan note Future Appointments Appointment Date:09/26/2021 04:20:00 PM Scheduled Provider:ERICA HERNANDEZ DO Location:[facility] Appointment Type:PC OV Appointment Date:10/08/2021 04:00:00 PM Scheduled Provider: Location:[facility] Appointment Type:MA Mammogram Screening Bilateral w/ Mitchell Future Scheduled Tests Radiology* XR Spine Cervical w/ Obliques 5 Views 08/14/21 * XR Elbow Minimum 3 Views Right 08/14/21 * MA Mammo Screening Bilateral w/ Mitchell 10/08/21 [facility] Evaluation + Plan note Future Appointments Appointment Date:08/01/2022 03:30:00 PM Scheduled Provider:ERICA HERNANDEZ DO Location:[facility] Appointment Type: Wellness Annual Future Scheduled Tests Radiology* MA Mammo Screening Bilateral w/ Mitchell 05/30/22 * XR Spine Cervical w/ Obliques 5 Views 08/14/21 * XR Elbow Minimum 3 Views Right 08/14/21 [facility] Evaluation + Plan note Future Appointments Appointment Date:05/28/2023 02:30:00 PM Scheduled Provider:ERICA HERNANDEZ DO Location:[facility] Appointment Type: Wellness Annual Diagnostic Tests Pending * Hepatitis B Viral DNA, Ultra Quant 12/08/22 Future Scheduled Tests Laboratory* Thyroid Antibodies 06/05/22 * Thyroid Stimulating Hormone 06/05/22 * Free T4 06/05/22 * Free T3 06/05/22 * Complete Metabolic Panel 06/05/22 Radiology* MA Mammo Screening Bilateral w/ Mitchell 10/16/22 * MA Mammo Screening Bilateral w/ Mitchell 12/02/22 [facility] Evaluation + Plan note Future Appointments Appointment Date:01/15/2023 07:30:00 AM Scheduled Provider: Location:[facility] Appointment Type:MA Mammogram Screening Bilateral w/ Mitchell Appointment Date:05/28/2023 02:30:00 PM Scheduled Provider:ERICA HERNANDEZ DO Location:[facility] Appointment Type: Wellness Annual Future Scheduled Tests Laboratory* Thyroid Antibodies 06/05/22 * Thyroid Stimulating Hormone 06/05/22 * Free T4 06/05/22 * Free T3 06/05/22 * Complete Metabolic Panel 06/05/22 Radiology* MA Mammo Screening Bilateral w/ Mitchell 10/16/22 * MA Mammo Screening Bilateral w/ Mitchell 01/15/23 [facility] Evaluation + Plan note Future Appointments Appointment Date:02/05/2024 08:30:00 AM Scheduled Provider:ERICA HERNANDEZ DO Location:[facility] Appointment Type:PC OV Future Scheduled Tests Radiology* MA Mammo Screening Bilateral w/ Mitchell 10/16/22 [facility] Evaluation + Plan note Future Appointments Appointment Date:03/17/2025 09:30:00 AM Scheduled Provider:ERICA HERNANDEZ DO Location:[facility] Appointment Type:PC OV [facility] Evaluation + Plan note Future Appointments Appointment Date:03/17/2025 09:30:00 AM Scheduled Provider:ERICA HERNANDEZ DO Location:[facility] Appointment Type:PC OV Diagnostic Tests Pending * HPV Screen, DNA Probe 09/16/24 [facility] Evaluation + Plan note Future Appointments Appointment Date:09/22/2025 03:00:00 PM Scheduled Provider:ERICA HERNANDEZ DO Location:[facility] Appointment Type:PC OV Future Scheduled Tests Radiology* MA Mammo Screening Bilateral w/ Mitchell 03/17/25 * BD Bone Density DEXA Axial Skeleton Adult (21 yrs or older) 03/17/25 [facility] Evaluation + Plan note Future Appointments Appointment Date:09/22/2025 03:00:00 PM Scheduled Provider:ERICA HERNANDEZ DO Location:[facility] Appointment Type:PC OV Future Scheduled Tests Laboratory* Complete Metabolic Panel 03/23/25 [facility] Evaluation noteNo Assessments Information Available [facility] Work Phone: History and physical note Author Cachorro Friend [facility] Note Date/Time January 23, 2025 7:4 2am [facility] Medical Records Department [address] [place] [address] History & Physical Exam 01/23/25 0740 MR#: [id number] Acct: [id number] Name: UMESHTIFFANY VEGASJANAK Rep #:[id number] : 1960 64 From: Cachorro Courtney DO PCP: Dr. Erica Hernandez, DO Status: [facility] Location: [place] [address] HPI - General General Date of Admission: 01/23/25 Date of Service: 01/23/25 Chief Complaint: Colon cancer screening HPI Narrative JESSIKA PAPPAS, is a 64 F who presents for screening colonoscopy. LABS HBVsAg positive 09/16/2024 HBV Core, IgM Ab non-reactive 09/16/2024 09/16/2024 PLT 296, HGB 11.5, albumin 3.5, AST and ALT WNL - reports she was treated for HBV 20 years ago at [facility] - Colonoscopy was about 12 years ago - denies any abdominal pain - denies any jaundice - denies any abdominal pain - denies any N/V - denies any weight loss - denies any HB - Brother with HBV - denies any heart or lung disease - denies any kidney disease Coding [facility] Medical History Low iron High cholesterol Non-smoker History of edema History of stress test History of EMG Type B viral hepatitis Median neuropathy Hypokalemia Hypertension HLD (hyperlipidemia) Degenerative disc disease, cervical Home Medications ?Medication ?Instructions ?Recorded ?Last Taken ?Type amlodipine 10 mg tablet 10 mg PO QDAY 10/17/2401/23 History losartan 50 mg tablet 50 mg PO QDAY 10/17/24 Unkno wn History cetirizine 10 mg tablet (Zyrtec) 10 mg PO QDAY PRN all ergy symptoms 10/25/24 Unknown History multivitamin 1 tab PO QDAY 10/25/24 Unkno wn History bisacodyl 5 mg tablet,delayed 5 mg PO ONCE Colonoscopy #4 tabs 01/20/25 Unknown Rx release (Dulcolax (bisacodyl)) polyethylene glycol 3350 17 238 g PO ONCE #238 grams 0 01/20/25 Unknown Rx gram/dose oral powder Allergy/AdvReac Type Severity Reaction Status Date / Time No Known Allergies Allergy Verified 01/23/25 07:17 Family History Brother Hepatitis Mother Hypertension Father Hypertension Surgical History History of colonoscopy History of Social History Smoking Status: Never smoker alcohol intake: never substance use type: does not use caffeine: Yes Type: coffee ROS Constitutional Constitutional: Denies fatigue, fever(s), poor appetite, weight gain or weight loss Gastrointestinal Gastrointestinal: Denies belching, bloating, change in bowel habits, change in stool character, chewing difficulty, coffee ground emesis, constipation, cramping, diarrhea, dyspepsia, dysphagia, early satiety, excessive flatus, fecalincontinence, heartburn, hematemesis, hematochezia, hemorrhoids, loose stools, melena, nausea, odynophagia, rectal bleeding, tenesmus, vomiting or weight changes Vital Signs Vital Signs Vital Signs: 01/23/25 07:18 Temperature 97.2 F L Temperature Source Temporal Pulse Rate 73 Respiratory Rate 16 Blood Pressure 123/67 H Blood Pressure Mean 85 Blood Pressure Source Monitor Blood Pressure Position Semi-Fowlers Blood Pressure Location Left Arm Pulse Ox 93 Oxygen Delivery Method Room Air Weight Weight: 148 lb Body Mass Index (BMI) 27.9 Physical Exam Const alert, oriented x3, no apparent distress and healthy appearing General Appearance: cooperative GI normal to inspection, nondistended, normoactive bowel sounds, soft to palpation,non-tender and non-distended Percussion: normal to percussion Rectal Exam: deferred Assessment & Plan Assessment/Plan (1) Screening for colon cancer: (2) Type B viral hepatitis: QUALIFIERS: Viral hepatitis chronicity: chronic Hepatic coma status: without hepatic coma PLAN: Assessment and Plan Assessment and Plan (1) Type B viral hepatitis: Status: Acute Qualifiers: Viral hepatitis chronicity: chronic Hepatic coma status: without hepatic coma (2) Screening for colon cancer: Status: Acute Orders: Orders Abdomen Limited Today B19.10 - Unspecified viral hepatitis B without hepatic coma Hepatitis B Surface Antibody Today B19.10 - Unspecified viral hepatitis B without hepatic coma Hepatitis Be Ab Today B19.10 - Unspecified viral hepatitis B without hepatic coma Hepatitis Be Ag Today B19.10 - Unspecified viral hepatitis B without hepatic coma Hepatitis A AB, Total Today B19.10 - Unspecified viral hepatitis B without hepatic coma Hepatitis C Antibody Today B19.10 - Unspecified viral hepatitis B without hepatic coma Miscellaneous Lab Procedure Today B19.10 - Unspecified viral hepatitis B without hepatic coma Plan 64y/o female presents for consultation with H of HBV. Recent labs revealed HBVsAg positive, negative HBV Core, IgM with a low positive sAb (16). She reports a remote history of HBV treatment at [facility]. I have ordered additional labs to further assess presence of HBV infection. She will also complete an ABD US at this time as well as age related screening colonoscopy. Plan Details Follow Up: 3 Months 01/23/25 0742 <Electronically signed by Cachorro Courtney DO> Cosigner Signature (if applicable): CC: Dr. Erica Hernandez DO; Cachorro Courtney DO~ Signed [facility] Work Phone: Hospital course Narrative No data available for this section [facility] Hospital Discharge instructions No data available for this section [facility] Progress note No data available for this section [facility] Reason for referral (narrative)No reason for referral [facility] Work Phone: Chief Complaint and Reason for Visit Chief Complaint PFIZER VACCINE Chief Complaint Admit Date POSSIBLE HEP B SEROLOGY October 25, 2 024 3:05pm HBV November 18, 2024 9: 03am Reason for Visit Admit Date Screening for colon cancer October 3:05pm Type B viral hepatitis October 25 3:05pm Screening for colon cancer January 23, 2 025 7:03am Type B viral hepatitis January 23, 2025 7:03am Chief Complaint Admit Date 3 M FU January 26, 2025 3:1 7pm Test Result April 13, 2025 3:24p m Reason for Visit Admit Date Screening for colon cancer January 23, 2 025 7:03am Type B viral hepatitis January 23, 2025 7:03am Screening for colon cancer January 26, 2 025 3:17pm Type B viral hepatitis January 26, 2025 3:17pm Summary Purpose Family History No Family History Records Found Relationship Condition Age at Onset Recorded Date/T dao brother Hepatitis Unknown mother Hypertension Unknown father Hypertension Unknown Advance Directives No Advanced Directives Records Found Advance Directive Response Recorded Date/ Time Living Will No January 19, 2025 3:11pm Power of Button Pusher No January 19 3:11pm Advance Directive Response Recorded Date/ Time Living Will No January 19, 2025 3:11pm Do you have a Healthcare Power of Button Pusher? No January 19, 2025 3:11pm Additional Source Comments INFORMATION SOURCE (unrecogn ized section and content) DATE CREATED AUTHOR 12/19/2021 [facility] DATE CREATED AUTHOR AUTHOR'S ORGANIZ ATION 04/08/2024 [facility] ([place]) DATE CREATED AUTHOR AUTHOR'S ORGANIZ ATION 04/18/2025 [facility] DATE CREATED AUTHOR AUTHOR'S ORGANIZ ATION 06/12/[address] [facility] Care Team (unrecognized sect ion and content) Care Team Personnel Name: Lilia Calabrese PT Position: P3 Scheduling - Atm Technician Advanced Member Role: Other Name: ERICA HERNANDEZ DO Position: P4 Physician - Primary Care Med Service: Active Provider Member Role: Primary Care Physician Address: Address: [address] [place] [address] Care Team Related Persons Name: JOSE PAPPAS Address: Home [address] [place] [phone] Care Team Personnel Name: Lilia Calabrese PT Position: P3 Scheduling - Atm Technician Advanced Member Role: Other Name: ERICA HERNANDEZ DO Position: P4 Physician - Primary Care Member Role: Primary Care Physician Address: Address: [address] [place] [address] Care Team Related Persons Name: JOSE PAPPAS Address: Home [address] [place] [phone] Care Team Personnel Name: Lilia Calabresersteve Marshall PT Position: P3 Scheduling - Atm Technician Advanced Member Role: Other Name: ERICA HERNANDEZ DO Position: P4 Physician - Primary Care Member Role: Primary Care Physician Address: Address: [address] [place] [id number] Care Team Related Persons Name: JOSE PAPPAS Address: Home [address] [place] [id number] Patient Care team informatio n (unrecognized section and content) Team Status: Active Member Role Status Dates Dr. Erica Hernandez DO Primary Care Provider Activ e Team Status: Inactive Member Role Status Dates No Primary Care Physician Primary Care Provider Active Start: October 25, 2024 End: October 25, 2024 No Primary Care Physician Referring Provider Active Start: October 25, 2024 End: October 25, 2024 Erin Lerner FEED BLENDER-C Attending Provider Active Start: October 25, 2024 End: October 25, 2024 Team Status: Inactive Member Role Status Dates No Primary Care Physician Primary Care Provider Active Start: October 25, 2024 End: October 25, 2024 Erin Lerner FEED BLENDER-C Attending Provider Active Start: October 25, 2024 End: October 25, 2024 Erin Lerner FEED BLENDER-C Referring Provider Active Start: October 25, 2024 End: October 25, 2024 Team Status: Inactive Member Role Status Dates Erin Lerner FEED BLENDER-C Attending Provider Active Start: November 18, 2024 End: November 18, 2024 Erin Lerner FEED BLENDER-C Referring Provider Active Start: November 18, 2024 End: November 18, 2024 Dr. Erica Hernandez DO Primary Care Provider Activ e Start: November 18, 2024 End: November 18, 2024 Team Status: Inactive Member Role Status Dates Dr. Erica Hernandez DO Primary Care Provider Activ e Start: January 23, 2025 End: January 23, 2025 Dr. Erica Hernandez DO Referring Provider Active Start: January 23, 2025 End: January 23, 2025 Dr. Cachorro Courtney , Attending Provider Active Start: January 23, 2025 End: January 23, 2025 Team Status: Active Member Role Status Dates Dr. Erica Hernandez DO Primary Care Provider Activ e Start: January 23, 2025 Dr. Erica Mcgee Chris , DO Referring Provider Active Start: January 23, 2025 Dr. Cachorro Courtney , DO Attending Provider Active Start: January 23, 2025 Dr. Cachorro Courtney , DO Other Provider Active St art: January 23, 2025 Team Status: Inactive Member Role Status Dates No Primary Care Physician Referring Provider Active Start: January 26, 2025 End: January 26, 2025 CHAD Reyes Attending Provider Active Start: January 26, 2025 End: January 26, 2025 Dr. Erica Hernandez , DO Primary Care Provider Activ e Start: January 26, 2025 End: January 26, 2025 Team Status: Inactive Member Role Status Dates Dr. Erica Hernandez , DO Primary Care Provider Activ e Start: April 13, 2025 End: April 13, 2025 Dr. Erica Hernandez , DO Referring Provider Active Start: April 13, 2025 End: April 13, 2025 CHAD Reyes Attending Provider Active Start: April 13, 2025 End: April 13, 2025 FOR RECORDS PERTAINING TO PATIENTS WHO ARE OR HAVE BEEN ENROLLED IN A CHEMICAL DEPENDENCY/SUBSTANCEABUSE PROGRAM, SOME INFORMATION MAY BE OMITTED. This clinical summary was aggregated from multiple sources. Caution should be exercised in using it in the provision of clinical care. This summary normalizes information from multiple sources, and as a consequence, information in this document may materially change the coding, format and clinical context of patient data. In addition, data may be omitted in some cases. CLINICAL DECISIONS SHOULD BE BASED ON THE PRIMARY CLINICAL RECORDS. [employer] provides no warranty or guarantee of the accuracy or completeness of information in this document.
--- NOTE | 2025-06-14 06:49 | HP.PCM_ITS ---
HPI - General General Date of Admission: 06/14/25 Date of Service: 06/14/25 Chief Complaint: This Greening colonoscopy HPI Narrative TIANNA CASH, is a 65 F who presents for screening colonoscopy HBVsAg positive HBVsAb negative HBVeAb positive HBVeAg negative HBV Core IgM negative HBV PCR Quant 470 HCVAb negative HAV Total positive ABD US 11/18/2024 negative Colon: scheduled May 2025 - denies any weight loss - denies any bleeding - denies any N/V - denies any HB - okay to leave a with detailed results These labs reveal she was previously infected with Hepatitis B and she has not seroconverted (HBVsAb negative), meaning she has not developed antibodies to Hepatitis B. However, her HBV DNA viral load remains very low and per AASLD guidelines any patient with HBeAg-negative CHB with normal ALT and low viral load should have routine labs yearly and ABD US to monitor. Labs also reveal immunity to hepatitis A. Avoidance of all alcohol is recommended. PENDING SALE TO [facility] Medical History Low iron High cholesterol Non-smoker History of edema History of stress test History of EMG Type B viral hepatitis Median neuropathy Hypokalemia Hypertension HLD (hyperlipidemia) Degenerative disc disease, cervical Home Medications ?Medication ?Instructions ?Recorded ?Last Taken ?Type amlodipine 10 mg tablet 10 mg PO QDAY 10/17/2401/23 History losartan 50 mg tablet 50 mg PO QDAY 10/17/24 Unkno wn History cetirizine 10 mg tablet (Zyrtec) 10 mg PO QDAY PRN all ergy symptoms 10/25/24 Unknown History multivitamin 1 tab PO QDAY 10/25/24 Unkno wn History Allergy/AdvReac Type Severity Reaction Status Date / Time No Known Allergies Allergy Verified 06/14/25 06:49 Family History Brother Hepatitis Mother Hypertension Father Hypertension Surgical History History of colonoscopy History of Social History Smoking Status: Never smoker alcohol intake: never substance use type: does not use caffeine: Yes Type: coffee ROS Constitutional Constitutional: Denies fatigue, fever(s), poor appetite, weight gain or weight loss Gastrointestinal Gastrointestinal: Denies belching, bloating, change in bowel habits, change in stool character, chewing difficulty, coffee ground emesis, constipation, cramping, diarrhea, dyspepsia, dysphagia, early satiety, excessive flatus, fecal incontinence, heartburn, hematemesis, hematochezia, hemorrhoids, loose stools, melena, nausea, odynophagia, rectal bleeding, tenesmus, vomiting or weight changes Physical Exam Const alert, oriented x3, no apparent distress and healthy appearing General Appearance: cooperative GI normal to inspection, nondistended, normoactive bowel sounds, soft to palpation, non-tender and non-distended Percussion: normal to percussion Rectal Exam: deferred Assessment & Plan Assessment/Plan (1) Screening for colon cancer: PLAN: Assessment and Plan Assessment and Plan (1) Screening for colon cancer: Status: Acute (2) Type B viral hepatitis: Status: Acute Qualifiers: Viral hepatitis chronicity: chronic Hepatic coma status: without hepatic coma Plan 64y/o female presents for follow-up. She denies any gastrointestinal complaints. She is scheduled for routine screening colonoscopy. I recommend yearly labs and US due November 2025. Note: [employer] [facility] speech recognition liquor department manager software was used to create portions of this document. Sound-alike and misspelled words, as well as other liquor department manager errors may be contained in the documentation. Patient Instructions: BOWEL PREP 1/2 Day Miralax and 1d SuTab HALF DAY MIRALAX PREP WHAT YOU NEED TO PURCHASE Bisacodyl (Dulcolax laxative) 2 tablets (NOT suppositories) Miralax (Glycolax) You will need one 7 dose bottle (4.1 ounces) Gas-X tablets (Simethicone) 2 tablets. The barrientos flavor, pink tablets are approved to use during the prep. 32 ounces of Gatorade, or any non-carbonated clear liquid. (Iced Tea, Crystal light) Select green, yellow or clear flavors ? no red or purple. In addition to the 32 ounces you will need additional clear liquids from the approved list to drink throughout the two days prior to your procedure. FIVE DAYS PRIOR TO YOUR PROCEDURE Stop consuming all high fiber foods/roughage. NO raw vegetables. NO corn (cooked or raw). NO whole wheat of high fiber breads. NO nuts or popcorn. NO bran or bulking agents. TWO DAYS PRIOR TO PROCEDURE: NO ALCOHOL You may have a light breakfast and a light lunch At 8:00am: mix Miralax 7 dose bottle (4.1 ounces) with 32 ounces of Gatorade or 32 ounces of a non-carbonated liquid and put in the refrigerator to chill. At 12:00 noon: begin a clear liquid diet. Be sure and drink at least 8 ounces of an approved clear liquid every hour while awake. AVOID anything red or purple in color. NO milk products or non-dairy creamer. SEE ATTACHED LIST OF APPROVED CLEAR LIQUIDS At 12:30pm: Take two Dulcolax tablets. Do not crush or chew. Take one Gas-X tablet. At 6:00pm: Begin drinking the Miralax / Gatorade mixture you put in the fridge at 8:00am. Drink the solution at a rate of 8 ounces every 30-60 minutes until gone. Take one Gas-X tablet. Continue clear liquids until bed. Plan Details Follow Up: 6 Months
[2025-06-14] MEDS: Lactated Ringers 1,000 ML 15 ML IV (06:59)
--- NOTE | 2025-06-14 07:16 | PCM.PRE.AN2 ---
ASA Classification* ASA Classification ASA Classification: 2 Assessment & Plan Anesthesia* Anesthesia Assessment Anesthesia Assessment: Discussed sedation and/or anesthesia options, risks, benefits, and alternatives with patient/parents/legal guardian/POA. Questions invited. The patient/parents/legal guardian/POA seems to understand and agrees to proceed with anesthesia plan. Reviewed the physical assessment, medical history, allergy history and patient home medications list prior to surgery/procedure/anesthetic and documented any changes. Performed airway and anesthesia risk assessments. Anesthesia Type Anesthesia Type: MAC History Source History Obtained from:: Patient and Chart Anesthesia Focused Assessment* Temperature: 97.6 F Pulse Rate: 59 Blood Pressure: 134/69 Respiratory Rate: 16 Pulse Ox: 98 Oxygen Delivery Method: Room Air Airway Assessment Mouth opens: >3 cm Mallampati Score: II Teeth Condition: Intact Neck Range of motion (ROM): Full ROM Comment: Large torus Labs Anesthesia Preop lab: CBC WBC 7.5 k/mm3 (4.4-11.0) 07/30/13 08:09 07/30/13 RBC 4.41 M/mm3 (4.2-5.4) 07/30/13 08:09 07/30/13 Hgb 10.9 g/dl (12.0-15.0) L 07/30/13 08:09 07/30/13 Hct 34.1 % (37-47) L 07/30/13 08:09 07/30/13 Plt Count 300 K/mm3 (150-450) 07/30/13 08:09 07/30/13 CHEMISTRY Potassium 4.0 mmol/L (3.5-5.1) 07/30/13 08:09 07/30/13 Sodium 143 mmol/L (136-145) 07/30/13 08:09 07/30/13 BUN 14 mg/dL (7-18) 07/30/13 08:09 07/30/13 Creatinine 1.0 mg/dL (0.6-1.0) 07/30/13 08:09 07/30/13 Glucose 91 mg/dL (70-110) 07/30/13 08:09 07/30/13 COAG Pre-Assessment Diagnosis/Proposed Procedure Planned Operative Procedure(s): COLONOSCOPY Anesthesia History Anesthesia History - logistics research engineer: Anesthesia History - logistics research engineer Hx Hospitalization No 06/09/25 11:31 Any Problems With Anesthesia No 06/09/25 11:31 Cholinesterase deficiency No 06/09/25 11:31 You/Your Family Experience No 06/09/25 11:31 fever (hyperthermia) with Relationship Recent Exposure to Contagious No 06/14/25 06:50 Disease Does patient have nerve No 06/09/25 11:31 stimulator Patient instructed to have device shut off --Does patient have Pacemaker or ICD? When Was Last Pacemaker Check QUESTION #4 FULL TEXT: You/Your Family Experience fever (hyperthermia) with Anesthesia Last Oral Intake Last Oral intake: Last Oral Intake NPO since 20:30 06/14/25 06:50 Meds taken in AM with sips of water? Meds patient instructed to take am of surgery PONV PONV - logistics research engineer: PONV - logistics research engineer Female Yes 06/09/25 11:31 HX of Motion Sickness No 06/09/25 11:31 HX of N/V After Surgery No 06/09/25 11:31 Non-Smoker Yes 06/09/25 11:31 Duration of Surgery greater No 06/09/25 11:31 than 60 minutes Number of Risk Factors 2 06/09/25 11:31 PONV Score Moderate Risk 06/09/25 11:31 Height & Weight Height & Weight: Anesthesia: Height & Weight Height 5 ft 1 in 06/14/25 06:50 Weight: 64 kg 06/14/25 06:50 Body Mass Index (BMI) 26.6 06/14/25 06:50 Respiratory Assessment Respiratory Assessment - logistics research engineer: Respiratory Tract Infection Hx - logistics research engineer Hx Respiratory Tract Infection No 06/09/25 11:31 STOP Sleep Apnea STOP Sleep Apnea - logistics research engineer: STOP Sleep Apnea - logistics research engineer Hx Hypertension Yes: CONTROLLED WITH MEDS 06/09/25 11:31 Hx Sleep Apnea No 06/09/25 11:31 CPAP BIPAP Do you snore loudly (louder No 06/09/25 11:31 than talking or can be heard Do you often feel tired/ No 06/09/25 11:31 fatigued/ sleepy during daytime? Has anyone observed you stop No 06/09/25 11:31 breathing during sleep? STOP Results Negative 06/09/25 11:31 QUESTION #5 FULL TEXT : Do you snore loudly (louder than talking or can be heard through closed doors)? Tobacco Use History Tobacco Use History - logistics research engineer: Tobacco Use History - logistics research engineer Tobacco Use Smoking Status Never smoker 06/09/25 11:31 Hx Tobacco Use No 06/09/25 11:31 Years Smoking Packs Smoked per Day Smoking Cessation Date was within the last 15 years Hx Smoking Cessation Date Hx Smoking Cessation Counseling Hematologic Medial History Hematologic Hx - logistics research engineer: Hematologic Medical Hx - extra gang supervisor Hx of Blood Transfusion No 06/09/25 11:31 Hx of Transfusion in last 3 No 06/09/25 11:31 Months Date of Last Transfusion (if within last 3 months) Ever experience any problems No 06/09/25 11:31 with transfusion(s)? Specify any problems Hx of Preganancy in last 3 No 06/09/25 11:31 Months Nurse Filling Out Transfusion [email or web address] 06/09/25 11:31 & Questions: Date: 06/09/25 06/09/25 11:31 Time: 11:34 06/09/25 11:31 Patient unable to answer at this time (ie. confused, unrespo /Reproduction History /Reproductive History - logistics research engineer: /Reproductive Hx- logistics research engineer Hx Now Gestational Age (in weeks): EDC: Hx Hx Para Hx Section SAB No 01/19/25 14:11 Active Medications Active Medications: Current Medications Generic Name Dose Route Start Last Admin Trade Name Freq PRN Reason Stop Dose Admin Lactated Ringer's 1,000 mls @ 15 mls/hr 06/14/25 06:30 06/14/25 06:59 IV 15 mls/hr .Q48H TAMRA Administration PFSH Medical History Low iron High cholesterol Non-smoker History of edema History of stress test History of EMG Type B viral hepatitis Median neuropathy Hypokalemia Hypertension HLD (hyperlipidemia) Degenerative disc disease, cervical Home Medications ?Medication ?Instructions ?Recorded ?Last Taken ?Type amlodipine 10 mg tablet 10 mg PO QDAY 10/17/24 06/14/25 History losartan 50 mg tablet 50 mg PO QDAY 10/17/24 06/14/25 History cetirizine 10 mg tablet (Zyrtec) 10 mg PO QDAY PRN allergy symptoms 10/25/24 Unknown History multivitamin 1 tab PO QDAY 10/25/24 Unknown History Allergy/AdvReac Type Severity Reaction Status Date / Time No Known Allergies Allergy Verified 06/14/25 06:49 Family History Brother Hepatitis Mother Hypertension Father Hypertension Surgical History History of colonoscopy History of Social History Smoking Status: Never smoker alcohol intake: never substance use type: does not use caffeine: Yes Type: coffee Review of Systems (Anesthesia) ROS Narrative System reviewed and no additional complaints, except as documented.
--- NOTE | 2025-06-14 08:11 | PCM.POST.ANE ---
Anesthesia: Postop Eval I Current Vital Signs Temperature: 97.8 F Pulse Rate: 51 Blood Pressure: 74/49 Respiratory Rate: 16 Pulse Ox: 98 Oxygen Delivery Method: Room Air Assessment Airway patent: Yes Spontaneous unlabored respirations: Yes Mental status: Asleep nausea: No Vomiting: No Anesthesia Complication: No Fluid Hydration Crystalloid volume administer (ml): 500 Total IV fluid infused: 500 Progress Note Anesthesia document: Postop Eval 1 completed: Yes
--- NOTE | 2025-06-14 08:18 | OP.PROVAT_ITS ---
06/14/2025 Yin Perez Re : Colonoscopy procedure for Jessika Pappas Dear Chris This procedure was performed on Saturday, June 14, 2025. My impressions and recommendations are as follows: Impressions : - Stool in the entire examined colon. - No specimens collected. Recommendations : - Discharge patient to home. - Resume previous diet. - Continue present medications. - Repeat colonoscopy in 5 years for surveillance. My findings are described in the full procedure note, which is enclosed. If I can be of further assistance, please feel free to contact me at . Sincerely, Cachorro Courtney, 06/14/2025 8:17:25 AM This report has been signed electronically.
--- NOTE | 2025-06-14 08:18 | OP.COLON_ITS ---
Patient Name: Jessika Pappas Procedure Date: 06/14/2025 7:41 AM Date of : 1960 Age: 65 Procedure: Colonoscopy Indications: Screening for colorectal malignant neoplasm Providers: Cachorro Courtney DO Referring MD: Yin Perez Medicines: Monitored Anesthesia Care Patient Profile: This is a 65 year old female. Last Colonoscopy: none. The patient's first colonoscopy is today. Complications: No immediate complications. Procedure: Pre-Anesthesia Assessment: - Prior to the procedure, a History and Physical was performed, and patient medications and allergies were reviewed. The patient is competent. The risks and benefits of the procedure and the sedation options and risks were discussed with the patient. All questions were answered and informed consent was obtained. Patient identification and proposed procedure were verified by the physician in the pre-procedure area. Mental Status Examination: alert and oriented. Airway Examination: normal oropharyngeal airway and neck mobility. Respiratory Examination: clear to auscultation. CV Examination: normal. Prophylactic Antibiotics: The patient does not require prophylactic antibiotics. Prior Anticoagulants: The patient has taken no anticoagulant or antiplatelet agents except for NSAID medication. ASA Grade Assessment: II - A patient with mild systemic disease. After reviewing the risks and benefits, the patient was deemed in satisfactory condition to undergo the procedure. The anesthesia plan was to use monitored anesthesia care (MAC). Immediately prior to administration of medications, the patient was re-assessed for adequacy to receive sedatives. The heart rate, respiratory rate, oxygen saturations, blood pressure, adequacy of pulmonary ventilation, and response to care were monitored throughout the procedure. The physical status of the patient was re-assessed after the procedure. After I obtained informed consent, the scope was passed under direct vision. Throughout the procedure, the patient's blood pressure, pulse, and oxygen saturations were monitored continuously. The Colonoscope was introduced through the anus and advanced to the cecum, identified by appendiceal orifice and ileocecal valve. Scope In: 7:51:14 AM Scope Withdrawal Time 0 hours 8 minutes 46 seconds Scope Out: 8:02:55 AM Total Procedure Duration Time 0 hours 11 minutes 41 seconds Findings: The perianal and digital rectal examinations were normal. Stool was found in the entire colon. No other significant abnormalities were identified in a careful examination of the remainder of the colon. Impression: - Stool in the entire examined colon. - No specimens collected. Recommendation: - Discharge patient to home. - Resume previous diet. - Continue present medications. - Repeat colonoscopy in 5 years for surveillance. Procedure Code(s): --- Professional --- 20195, Colonoscopy, flexible; diagnostic, including collection of specimen(s) by brushing or washing, when performed (separate procedure) CPT copyright 2021 [employer]. All rights reserved. The codes documented in this report are preliminary and upon surgical coder review may be revised to meet current compliance requirements. Cachorro Courtney DO 06/14/2025 8:17:25 AM This report has been signed electronically. Number of Addenda: 0 Note Initiated On: 06/14/2025 7:41 AM
--- NOTE | 2025-06-14 08:30 | PCM.POSTANE2 ---
Anesthesia Postop Eval I Sum Postop Eval Completion status Anesthesia document: Postop Eval 1 completed: Yes Anesthesia Postop Eval I Summary Anesthesia Postop Eval I Summary: Anesthesia Postop Eval I: Assessment Summary Airway patent Yes 06/14/25 08:12 [email or web address] Spontaneous unlabored Yes 06/14/25 08:12 [email or web address] respirations Mental status Asleep 06/14/25 08:12 [email or web address] nausea No 06/14/25 08:12 [email or web address] Vomiting No 06/14/25 08:12 [email or web address] Anesthesia Postop Eval I: Fluid Summary Crystalloid volume administer 500 06/14/25 08:12 [email or web address] (ml) Colloids volume administered ( ml) Blood Product volume administered (ml) Total IV fluid infused 500 06/14/25 08:12 [email or web address] Anesthesia Postop Eval I: Summary Notes Anesthesia Complication No 06/14/25 08:12 [email or web address] Anesthesia Complication Comment: Post-operative progress note Anesthesia: Postop Eval II Evaluation Mental status: Awake and Calm Pain Level: 0 nausea: No Vomiting: No Progress Note Post-operative progress note: Doing well. Meets discharge criteria.
== END 2025-06-14 08:43 | disposition home or self-care (01) ==
LOC: EN 06:27 → AC 06:28
PROVIDERS: Visit Provider Internal Medicine Gastroenterology
PROC: 0DJD8ZZ Inspection of Lower Intestinal Tract, Via Natural or Artificial Opening Endoscopic (ICD-10-PCS; CPT 45378; principal; 2025-06-14 07:25)
DX: Z12.11 Encounter for screening for malignant neoplasm of colon (principal); B18.1 Chronic viral hepatitis B without delta-agent; I10 Essential (primary) hypertension; Z79.899 Other long term (current) drug therapy
CPT/HCPCS: 45378; J2405